=== PATIENT | male | born 1940 | race Caucasian/White ===

== ENCOUNTER 2017-10-19 07:45 | Inpatient (IN) | payer OTHER ==
[~2017-10-19] VITALS: Ht 182.9 cm; Wt 78.9 kg
[~2017-10-19 07:45] MED LIST: MOXIFLOXACIN H400 M2 PO
--- NOTE | 2017-10-19 08:18 | ED GENERAL ADULT ---
History of Present Illness General Chief Complaint: Dyspnea (COPD, CHF, Other) Stated Complaint: SENT BY DR TAZ RAYO OF SOB Source: patient, family Exam Limitations: no limitations Vital Signs & Intake/Output Vital Signs & Intake/Output Vital Signs Date Time Temp Pulse Resp B/P B/P Pulse O2 O2 Flow FiO2 Mean Ox Delivery Rate 10/19 1327 97.9 79 24 105/61 96 Room Air 10/19 1036 98.0 76 22 112/57 95 Room Air 10/19 0803 Room Air Room Air 10/19 0749 97.5 86 24 96/66 95 Room Air Room Air Allergies Coded Allergies: NO KNOWN ALLERGIES (09/24/13) Reconcile Medications Aspirin (Aspirin*) 81 MG TAB.CHEW 1 TAB PO DAILY HEART HEALTH (Reported) Calcium (Elemental-Fr Calcarb) (Calcium) 600 MG CALCIUM (1,500 MG) TABLET 1 TAB PO DAILY SUPPLEMENT (Reported) Lisinopril 10 MG TABLET 1 TAB PO DAILY HEART (Reported) Multivitamin (Daily Multiple Vitamin) 1 EACH TABLET 1 TAB PO DAILY VITAMIN SUPPORT (Reported) [place]-3 Fatty Acids/Fish Oil (Fish Oil 1,000 MG Capsule) 340 MG-1,000 MG CAPSULE 1 CAP PO DAILY SUPPLEMENT (Reported) Rosuvastatin Calcium (Crestor) 10 MG TABLET 1 TAB PO DAILY CHOLESTEROL ( Reported) Vit A/Vit C/Vit E/Zinc/Copper (Preservision Areds Softgel) 14,320-226 CAPSULE 1 CAP PO DAILY EYE (Reported) Triage Note: PT TO ED WITH C/O SOB, COUGH, CONGESTION X 5 WEEKS, WORSE LAST FEW DAYS. PT HAD XRAYS, CT, LUNG BIOPSY (BILAT). Triage Nurses Notes Reviewed? yes HPI: 77-year-old male comes in with continued shortness of breath. The patient was recently seen and admitted with pulmonary nodules which eventually were biopsied and grew out enterococci. The patient was discharged on moxifloxacin and has continued to take it without much improvement. The patient's chest x-ray was repeated and he has worsening nodules that he was advised to come in for IV antibiotics. The patient denies fever. Past History Travel History Traveled to [place] past 21 day No Medical History Any Pertinent Medical History? 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 No Review of Systems Review of Systems Constitutional: Denies: chills, diaphoresis, fever. EENTM: Denies: blurred vision, double vision, visual changes. Respiratory: Reports: cough, short of breath. Denies: hemoptysis, orthopnea. Cardiovascular: Denies: chest pain, edema, orthopena. GI: Denies: abdominal pain, bloating, constipation. Genitourinary: Denies: discharge, dysuria, frequency. Musculoskeletal: Denies: back pain, gout, joint pain. Skin: Denies: cysts, change in skin color, change in hair/nails. Neurological/Psychological: Denies: anxiety, ataxia, cognitive dysfunction. Hematologic/Endocrine: Denies: bruising. Physical Exam Physical Exam General Appearance: well developed/nourished, no apparent distress, alert, awake Head: atraumatic, normal appearance Eyes: Bilateral: PERRL, EOMI. Ears, Nose, Throat: normal pharynx, normal ENT inspection Neck: normal inspection, supple, full range of motion Respiratory: normal breath sounds, chest non-tender, no respiratory distress Cardiovascular: regular rate/rhythm Gastrointestinal: normal bowel sounds, soft, non-tender Back: normal inspection, normal range of motion Extremities: normal inspection, normal capillary refill, normal range of motion Neurologic/Psych: no motor/sensory deficits, awake, alert, oriented x 3 Skin: intact, normal color Core Measures ACS in differential dx? No CVA/TIA Diagnosis: No Sepsis Present: No Sepsis Focused Exam Completed? No Progress Differential Diagnoses . Plan of Care: Orders Procedure Date/time Status CBC WITHOUT DIFFERENTIAL 10/20 599 Active BASIC ELECTROLYTES PLUS BUN&CR 10/20 599 Active Heart Healthy Diet 10/19 D Active ED Holding Orders 10/19 1418 Active Admit to inpatient 10/19 1418 Active Vital Signs 10/19 1418 Active Code Status 10/19 1418 Active Lab Add-on Test 10/19 1347 Active LACTIC ACID 10/19 1116 Active Pathway - chart 10/19 09 Active House Staff 10/19 09 Active LOWER RESPIRATORY CULTURE 10/19 09 Active WESTERGREN SED RATE 10/19 0817 Complete BLOOD CULTURE 10/19 0816 Active LACTIC ACID 10/19 0816 Complete Saline Lock 10/19 0810 Active TROPONIN LEVEL 10/19 0810 Complete CBC WITHOUT DIFFERENTIAL 10/19 08 Complete BASIC METABOLIC PANEL 10/19 08 Complete ANGIOTENSIN-CONVERT.ENZYM Ref$ 10/19 08 Active NEUTRO CYTO ANTIBODY Ref$ 10/19 0810 Active EKG 10/19 0810 Active VTE Mechanical Prophylaxis 10/19 UNK Active Activity/Ambulation 10/19 UNK Active Current Medications Sig/Fernando Start time Last Medication Dose Stop Time Status Admin Aspirin 81 MG DAILY 10/20 0900 UNVr (Aspirin) Atorvastatin Calcium 40 MG 1700 10/19 1700 UNVr (Lipitor) Meropenem 1 GM IQ8 10/19 1345 UNVr (MEROPENEM) Enoxaparin Sodium 40 MG DAILY 10/19 09 UNVr (Lovenox) Sodium Chloride 1,000 ML ONCE ONE 10/19 0815 AC 10/19 (Normal Saline 0.9%) 10/19 1454 0847 Laboratory Tests 10/19/17 0836: ESR Westergren 105 H 10/19/17 0825: Lactic Acid 0.9 10/19/17 0825: Anion Gap 9, Estimated GFR > 60, BUN/Creatinine Ratio 18.8, Glucose 106 H, Calcium 9.0, Troponin I 0.02, CBC w Diff NO MAN DIFF REQ, RBC 4.14 L, MCV 84.9, MCH 28.2, MCHC 33.2, RDW 14.0, MPV 7.4, Gran % 80.7 H, Lymphocytes % 3.6 L, Monocytes % 13.6 H, Eosinophils % 1.1, Basophils % 1.0, Absolute Granulocytes 8.0 H, Absolute Lymphocytes 0.4 L, Absolute Monocytes 1.3 H, Absolute Eosinophils 0.1, Absolute Basophils 0.1 10/19/17 0810: Angiotensin Convert Enz Pending, ANCA Pending Microbiology 10/19 914 BLOOD: Blood Culture - RECD 10/19 901 LOWER RESP: Respiratory Culture - COLB 10/19 901 LOWER RESP: Gram Stain - COLB 10/19 0836 BLOOD: Blood Culture - RECD Initial ED EKG: see below Comments: EKG shows sinus, rate of 83, normal axis, normal intervals, no acute ST-T changes. Compared to the EKG from October 04, 2017: No significant change. I reviewed previous admission record and spoke with the patient's multimedia services coordinator, . The plan is for the patient to be admitted for failed outpatient antibiotic therapy. He wants ID consulted before starting antibiotic therapy. We will check the patient's lactate because of soft initial blood pressure though he does not appear septic he does not have tachycardia or fever. The patient also took antibiotic for the past few days including one last night. We will continue to watch him closely. I will give him some IV fluids. He would likely need admission. 142 after discussion with all consultants and the patient's multimedia services coordinator and infectious disease, the patient will be admitted for IV antibiotics. The inpatient service will start antibiotics. The patient is not septic. Departure Departure Time of Disposition: 1417 Disposition: STILL A PATIENT Condition: Stable Clinical Impression Primary Impression: Pulmonary nodule Secondary Impressions: Pneumonia Referrals: Cari Calderon MD (PCP/Family) Departure Forms: Customer Survey General Discharge Information Critical Care Note Critical Care Note Critical Care Time: non-applicable
[2017-10-19 08:36] LABS: ABSOLUTE BASOPHIL COUNT 0.1 /CUMM (0.0-0.2); ABSOLUTE EOSINOPHIL COUNT 0.1 /CUMM (0.0-0.7); ABSOLUTE LYMPH COUNT 0.4 /CUMM (1.2-3.4); ABSOLUTE MONOCYTE COUNT 1.3 /CUMM (0.10-0.60); EOSINOPHIL % 1.1 % (0-5); GRANULOCYTE % 80.7 % (42.2-75.2); HEMATOCRIT 35.1 % (42-52); MEAN CORPUSCULAR HGB 28.2 PG (27.0-31.0); MEAN CORPUSCULAR HGB CONC 33.2 G/DL (33.0-37.0); MEAN CORPUSCULAR VOLUME 84.9 FL (80.0-94.0); MEAN PLATELET VOLUME 7.4 FL (7.4-10.4); PLATELET COUNT 620 /CUMM (130-400); RED BLOOD CELL CT 4.14 /CUMM (4.70-6.10); WHITE BLOOD CELL COUNT 9.9 /CUMM (4.8-10.8)
--- NOTE | 2017-10-19 08:52 | History & Physical ---
Jake PRECIADO,[facility] 10/19/17 0852: General Information and HPI MD Statement: I have seen and personally examined JENNIFER AGRAWAL and documented this H&P. The patient is a 77 year old M who presented with a patient stated chief complaint of cough/dyspnea . Source of Information: patient Exam Limitations: no limitations History of Present Illness: 77 yo gentleman who is a former smoker with PMH of hypertension and hyperliipidemia, recently admitted to [facility] from 10/03-10/07 for Enterobacter Cloacae isolated Bilateral cavitary mulitlobar PNA with lung abscess lessions and sent hoime with Moxifloxacin to complete a 14 day ABX course, returns to the ED with peristent shortness of breath on exertion and cough. A repeat CXR done after completion of ABX showed interval increment of the pulmonary lesions. He does endorse peristent cough which is unchanged since last admission. His cough is non productive most of the time, denies hemoptysis. He denies any fever/ chills. Regarding his dyspnea, it is with minimal exertion and remains unchanged since last admission. During last admission extensive workup including HIV screen, AFB stain and fungus (included induced sputum and tissue biopsy), were all unremarkable. His Quinteferon result were indeterminate,culture pending. Workup for vasculitis, and echo to assess for IE were all unremarkable. His enterobactericae Cloacae was sensitive to floroquinolones. Allergies/Medications Allergies: Coded Allergies: NO KNOWN ALLERGIES (09/24/13) Home Med list Aspirin (Aspirin*) 81 MG TAB.CHEW 1 TAB PO DAILY HEART HEALTH (Reported) Calcium (Elemental-Fr Calcarb) (Calcium) 600 MG CALCIUM (1,500 MG) TABLET 1 TAB PO DAILY SUPPLEMENT (Reported) Lisinopril 10 MG TABLET 1 TAB PO DAILY HEART (Reported) Multivitamin (Daily Multiple Vitamin) 1 EACH TABLET 1 TAB PO DAILY VITAMIN SUPPORT (Reported) [place]-3 Fatty Acids/Fish Oil (Fish Oil 1,000 MG Capsule) 340 MG-1,000 MG CAPSULE 1 CAP PO DAILY SUPPLEMENT (Reported) Rosuvastatin Calcium (Crestor) 10 MG TABLET 1 TAB PO DAILY CHOLESTEROL ( Reported) Vit A/Vit C/Vit E/Zinc/Copper (Preservision Areds Softgel) 14,320-226 CAPSULE 1 CAP PO DAILY EYE (Reported) Past History Travel History Traveled to [place] past 21 day No Medical History Neurological: NONE EENT: cataracts Cardiovascular: hypertension, hyperlipidemia Respiratory: NONE Gastrointestinal: GERD Hepatic: NONE Renal: NONE Musculoskeletal: NONE Psychiatric: NONE Endocrine: NONE Blood Disorders: NONE 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 Exam & Diagnostic Data Last 24 Hrs of Vital Signs/I&O Vital Signs Date Time Temp Pulse Resp B/P B/P Pulse O2 O2 Flow FiO2 Mean Ox Delivery Rate 10/19 1036 98.0 76 22 112/57 95 Room Air 10/19 0803 Room Air Room Air 10/19 0749 97.5 86 24 96/66 95 Room Air Room Air Intake & Output 10/19 1600 10/19 0800 10/19 0000 Intake Total 0 Output Total Balance 0 Intake, Oral 0 Patient 86.183 kg Weight Weight Reported by Patient Measurement Method Physical Exam General Appearance Alert, Oriented X3, Cooperative Skin No Significant Lesion Skin Temp/Moisture Exam: Warm/Dry Sepsis Skin Exam (color): Normal for Ethnicity HEENT Atraumatic, Mucous Membr. moist/pink Neck Supple, No JVD Lymphatic Cervical nl Cardiovascular Regular Rate, Normal S1, Normal S2 Lungs Clear to Auscultation, Normal Air Movement Abdomen Normal Bowel Sounds, Soft, No Tenderness Neurological Normal Gait, Normal Speech, Strength at 5/5 X4 Ext, Normal Tone, Sensation Intact Extremities No Tenderness/Swelling Vascular Normal Pulses, Pulses Symmetrical Last 24 Hrs of Labs/Elder: Laboratory Tests 10/19/17 0836: ESR Westergren 105 H 10/19/17 0825: Lactic Acid 0.9 10/19/17 0825: Anion Gap 9, Estimated GFR > 60, BUN/Creatinine Ratio 18.8, Glucose 106 H, Calcium 9.0, Troponin I 0.02, CBC w Diff NO MAN DIFF REQ, RBC 4.14 L, MCV 84.9, MCH 28.2, MCHC 33.2, RDW 14.0, MPV 7.4, Gran % 80.7 H, Lymphocytes % 3.6 L, Monocytes % 13.6 H, Eosinophils % 1.1, Basophils % 1.0, Absolute Granulocytes 8.0 H, Absolute Lymphocytes 0.4 L, Absolute Monocytes 1.3 H, Absolute Eosinophils 0.1, Absolute Basophils 0.1 10/19/17 0810: Angiotensin Convert Enz Pending, ANCA Pending Microbiology 10/19 1446 LOWER RESP: Respiratory Culture - RECD 10/19 1446 LOWER RESP: Gram Stain - RECD 10/19 0915 BLOOD: Blood Culture - RECD 10/19 0836 BLOOD: Blood Culture - RECD Assessment/Plan Assessment: 77-year-old gentleman who is a former smoker (40yr hx), past medical history significant for hypertension and hyperlipidemia, with a recent diagnosis of enterobacter colacae isolated bilateral cavitary multilobar pneumonia with lung abscess treated aggresively with on a 14 day antibiotic course(moxifloxacin), presents to [facility] ED with persistent respiratory symptoms in the context of chest x-ray radiological findings showing interval increments when compared to previous study of 09/27/2017. On presentation, he is afebrile with no leukocytosis Impression * Dyspnea and cough. Secondary to multilobar pneumonia. * Bilateral cavitary multilobar pneumonia now radiologically worsened with failure of outpatient antibiotics. * History of chronic disease: Hypertension, hyperlipidemia. Plan Admit to general medicine floor O2 supplementation to keep sats above 92% Obtain blood cultures and sputum cultures, before starting antibiotics CT chest tomorrow am to assess interval changes Obtain ID consult for abx choice optimization repeat vasculitis workup oin the context of elevated ESR Continue with home hypertension medications CODE STATUS: Full DVT prophylaxis; enoxaparin As Ranked By This Provider Problem List: 1. Pneumonia 2. Pulmonary nodule 3. Cavitating mass of lung 4. SOB (shortness of breath) Core Measures/Misc (10/24) Acute Coronary Syndrome ACS Diagnosis: No Congestive Heart Failure Congestive Heart Failure Diagnosis No Cerebrovascular Accident CVA/TIA Diagnosis: No VTE (View Protocol) VTE Risk Factors Acute Medical Illness No Mechanical VTE Prophylaxis d/t N/A MechProphylax Ordered No VTE Pharm Prophylaxis d/t NA PharmProphylax ordered Sepsis (View protocol) Sepsis Present: No If YES complete Sepsis Event Note If YES complete Sepsis Event Note Halina PRECIADO,[facility] 10/19/17 1814: Core Measures/Misc (10/24) Sepsis (View protocol) If YES complete Sepsis Event Note If YES complete Sepsis Event Note Attending MD Review Statement Attending Statement Attending MD Statement: examined this patient, discuss w/resident/PA/SOCIAL HUMAN SERVICES ASSISTANTS, agreed w/resident/PA/SOCIAL HUMAN SERVICES ASSISTANTS, discussed with family, reviewed EMR data (avail), discussed with nursing, discussed with case mgmt, reviewed images, amended to note Attending Assessment/Plan: This is a gentleman with HTN and Hyperlipedemia with 40 pack yrs smoker quit many rs ago with recent travel to [facility] has one month history of cough and yellow sputum with poor dention, 30 pound wt loss now has * Worsening large 9 cm cavitary lung abscess despite being on aggressive antibiotic outpatient by mouth therapy with moxifloxacin. Now has ESR which is worsening, leukocytosis, low-grade temperature at home, worsening performance status. Requires inpatient admission for aggressive intravenous antibiotic therapy for anaerobic coverage. Other pathology like inflammatory diseases including polyangiitis versus sarcoidosis etc. is unlikely. Lung biopsy done showed significant inflammation but no evidence suggestive of vasculitis are any granuloma. Patient is HIV negative. Low risk for MTB. Has grown Enterobacter which needs to be treated again with anaerobic coverage. Infectious disease consultation reviewed and appreciated * Wt loss recently, prior smoking * HTN and HLD PLAN Admit Intravenous meropenem Repeat sputum culture and other cultures Postural drainage to right lower lobe Check blood work tomorrow and if creatinine is okay we will do a CT chest with IV contrast to evaluate the lung abscess etc. We will consider repeat biopsy if the nodules are getting worse. We will also consider bronchoscopy in the future. No clinical evidence suggestive of any endobronchial lesion and bronchoscopy will be a limited use. If the CT is worse we will have thoracic surgery evaluation. Repeat ESR in 2 days Discussed with the family Intravenous fluids
[2017-10-19] MEDS ORDERED: CRESTOR10 M1 PO (09:17)
[2017-10-19] MEDS ORDERED: LISINOPRIL10 M1 PO (09:17)
[2017-10-19] MEDS ORDERED: DAILY MULTIPLE1 EACH PO (09:18)
[2017-10-19] MEDS ORDERED: ASPIRIN81 M4 PO (09:18)
[2017-10-19] MEDS ORDERED: PRESERVISION A1 EAC2 PO (09:19)
[2017-10-19] MEDS ORDERED: FISH OIL 1,0001 EACH PO (09:19)
[2017-10-19] MEDS ORDERED: CALCIUM600 M3 PO (09:19)
--- NOTE | 2017-10-19 11:23 | Cons- Infect Disease ---
General Information and HPI Consulting Request Date of Consult: 10/19/17 Requested By: Piotr Meade M.D. Reason for Consult: Bilateral pulmonary nodules Source of Information: patient, old records History of Present Illness: This is a 77-year-old man, ex-smoker, with a history of hypertension, hospitalized 2 weeks prior to admission with a 4 week history of a productive cough, shortness of breath with exertion and anorexia with a 30 pound weight loss, with a CT of the chest revealing bilateral pulmonary masses, with cavitation in the largest one, found to be afebrile with a normal white blood cell count, with a sputum culture positive for Enterobacter cloacae and a CT guided lung biopsy revealing dense fibrosis with chronic inflammation, with all cultures and stains negative, DAX negative, ANCA negative and an indeterminate QuantiFERON, discharged on Moxifloxacin, presenting to the emergency room today after a follow-up chest x-ray 2 days ago revealed an increase in the multiple bilateral pulmonary nodules and masses, with a persistent productive cough and shortness of breath with exertion, not significantly improved over the past 2 weeks, with no associated fevers, chills or sweats. On arrival to the emergency room he was afebrile. Laboratory data reveals a white blood cell count of 10, 000, ESR 105 (up from 65 on his admission), BUN/creatinine 16 and 0.9, AST/ALT 65 and 84. He did travel to [place] approximately 2 months prior to the onset of his symptoms. He has had no other travel and has no pets. He reports no TB exposure. Allergies/Medications Allergies: Coded Allergies: NO KNOWN ALLERGIES (09/24/13) Home Med List: Aspirin (Aspirin*) 81 MG TAB.CHEW 1 TAB PO DAILY HEART HEALTH (Reported) Calcium (Elemental-Fr Calcarb) (Calcium) 600 MG CALCIUM (1,500 MG) TABLET 1 TAB PO DAILY SUPPLEMENT (Reported) Lisinopril 10 MG TABLET 1 TAB PO DAILY HEART (Reported) Multivitamin (Daily Multiple Vitamin) 1 EACH TABLET 1 TAB PO DAILY VITAMIN SUPPORT (Reported) [place]-3 Fatty Acids/Fish Oil (Fish Oil 1,000 MG Capsule) 340 MG-1,000 MG CAPSULE 1 CAP PO DAILY SUPPLEMENT (Reported) Rosuvastatin Calcium (Crestor) 10 MG TABLET 1 TAB PO DAILY CHOLESTEROL ( Reported) Vit A/Vit C/Vit E/Zinc/Copper (Preservision Areds Softgel) 14,423-732 CAPSULE 1 CAP PO DAILY EYE (Reported) Past History Travel History Traveled to [place] past 21 day No Medical History Neurological: NONE EENT: cataracts Cardiovascular: hypertension, hyperlipidemia Respiratory: NONE Gastrointestinal: GERD Hepatic: NONE Renal: NONE Musculoskeletal: NONE Psychiatric: NONE Endocrine: NONE Blood Disorders: NONE 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 History of MRSA: No History of VRE: No History of CDIFF: No Surgical History Surgical History: cholecystectomy, hemorrhoid surgery Psychosocial History Services at Home: None ETOH Use: denies use Illicit Drug Use: denies illicit drug use Review of Systems Review of Systems All Other Systems: Reviewed and Negative Exam & Diagnostic Data Last 24 Hrs of Vital Signs/I&O Vital Signs Date Time Temp Pulse Resp B/P B/P Pulse O2 O2 Flow FiO2 Mean Ox Delivery Rate 10/19 1036 98.0 76 22 112/57 95 Room Air 10/19 0803 Room Air Room Air 10/19 0749 97.5 86 24 96/66 95 Room Air Room Air Intake & Output 10/19 1600 10/19 0800 10/19 0000 Intake Total 0 Output Total Balance 0 Intake, Oral 0 Patient 190 lb Weight Weight Reported by Patient Measurement Method Physical Exam Other Physical Findings: He is awake and alert in no acute distress. He is afebrile. Skin reveals no rash. HEENT exam is negative. Neck is supple with no adenopathy. Lungs are clear. Heart regular rhythm with a 1/6 systolic ejection murmur. Abdomen is soft, nontender with positive bowel sounds. Back no CVA tenderness. Extremities no cyanosis, clubbing or edema. Neuro is without focality. Last 24 Hours of Lab Results: Laboratory Tests 10/19 10/19 10/19 0836 0825 0825 Chemistry Sodium (137 - 145 mmol/L) 136 L Potassium (3.5 - 5.1 mmol/L) 4.6 Chloride (98 - 107 mmol/L) 101 Carbon Dioxide (22 - 30 mmol/L) 26 Anion Gap (5 - 16) 9 BUN (9 - 20 mg/dL) 15 Creatinine (0.7 - 1.2 mg/dL) 0.8 Estimated GFR (>60 ml/min) > 60 BUN/Creatinine Ratio (7 - 25 %) 18.8 Glucose (65 - 99 mg/dL) 106 H Lactic Acid (0.7 - 2.1 mmol/L) 0.9 Calcium (8.4 - 10.2 mg/dL) 9.0 Troponin I (<0.11 ng/ml) 0.02 Hematology CBC w Diff NO MAN DIFF REQ WBC (4.8 - 10.8 /CUMM) 9.9 RBC (4.70 - 6.10 /CUMM) 4.14 L Hgb (14.0 - 18.0 G/DL) 11.7 L Hct (42 - 52 %) 35.1 L MCV (80.0 - 94.0 FL) 84.9 MCH (27.0 - 31.0 PG) 28.2 MCHC (33.0 - 37.0 G/DL) 33.2 RDW (11.5 - 14.5 %) 14.0 Plt Count (130 - 400 /CUMM) 620 H MPV (7.4 - 10.4 FL) 7.4 Gran % (42.2 - 75.2 %) 80.7 H Lymphocytes % (20.5 - 51.1 %) 3.6 L Monocytes % (1.7 - 9.3 %) 13.6 H Eosinophils % (0 - 5 %) 1.1 Basophils % (0.0 - 2.0 %) 1.0 Absolute Granulocytes (1.4 - 6.5 /CUMM) 8.0 H Absolute Lymphocytes (1.2 - 3.4 /CUMM) 0.4 L Absolute Monocytes (0.10 - 0.60 /CUMM) 1.3 H Absolute Eosinophils (0.0 - 0.7 /CUMM) 0.1 Absolute Basophils (0.0 - 0.2 /CUMM) 0.1 ESR Westergren (0 - 10 MM) 105 H Last 24 Hours of Elder Results: Blood cultures x 2 October 19 pending Diagnostic Data Recent Imaging Findings: Chest x-ray October 17 reveals multiple ill-defined pulmonary masses, several of which appear larger when compared to the previous study, with the largest in the right lower lobe, cavitated with air-fluid levels, now measuring 9 x 8 cm, with no significant pleural effusion. Assessment/Plan Assessment/Plan Impression: This is a 77-year-old man with a history of hypertension hospitalized 2 weeks prior to admission with bilateral pulmonary masses felt to be infectious in etiology, with a sputum culture positive for Enterobacter and a CT-guided biopsy revealing dense fibrosis with chronic inflammation, treated over the past 2 weeks with antibiotics with no significant improvement clinically and with progression of his pulmonary masses radiographically, now found to be afebrile with a normal white blood cell count and with excellent oxygenation on room air. The etiology of his bilateral pulmonary nodules is unclear. An infectious process remains a concern, particularly with evidence of cavitation and an air- fluid level in the right lower lobe, suggestive of a lung abscess, and with the isolation of Enterobacter from his initial sputum culture. He does not appear to have responded, however, to the Moxifloxacin. This could suggest the involvement of other pathogens, particularly anaerobes, or perhaps more unusual organisms, including mycobacteria or fungi, that are not easily isolated. A noninfectious process, however, must also be considered, including polyangiitis with granulomatosis (though his ANCA was negative) or other autoimmune diseases (though his DAX was also negative) or sarcoidosis. Malignancy is also possible, though the biopsy was negative. Of note his ESR has increased, suggesting progression of this process, though this is nonspecific. Options at this point include repeat aspiration/biopsy under CT guidance, particularly of the right lower lobe abscess, bronchoscopy or empiric antibiotics that would include anaerobic coverage. Have discussed with Pulmonary who prefers the latter option as an initial approach. Suggestion: 1. Would consider repeat CT-guided aspiration/biopsy of the right lower lobe abscess/nodule 2. Would check an ALONDRA level and consider further/repeat serologies to rule out noninfectious etiologies 3. Attempt to obtain a sputum culture 4. Begin Meropenem 1 g IV every 8 hours pending above Consult Acknowledgment - Thank you for your consult request.
[2017-10-19 17:18] VITALS: BP 132/70
[2017-10-19 21:03] VITALS: BP 130/70
[2017-10-20 06:23] VITALS: BP 122/64
--- NOTE | 2017-10-20 07:52 | PN- Housestaff ---
See Addendum Subjective Follow-up For: Cavitatory lesions ?Pneumonia Subjective: Patient seen and examined at bedside. He states he is doing well apart from his productive cough. He says he produces "enough sputum to choke a horse". He also endorses mild shortness of breath. He denies fever, chills, nausea, vomiting, chest pain. Review of Systems Constitutional: Reports: see HPI. Objective Last 24 Hrs of Vital Signs/I&O Vital Signs Date Time Temp Pulse Resp B/P B/P Pulse O2 O2 Flow FiO2 Mean Ox Delivery Rate 10/20 1406 98.0 79 20 110/66 96 Room Air 10/20 0815 77 122/64 10/20 0623 99.5 77 16 122/64 94 10/20 0000 Room Air 10/19 2103 98.6 75 16 130/70 96 Room Air 10/19 1718 98.3 78 18 132/70 96 Room Air Intake & Output 10/20 1600 10/20 0800 10/20 0000 Intake Total 1090 600 427.5 Output Total 160 Balance 930 600 427.5 Intake, IV 610 600 187.5 Intake, Oral 480 240 Output, Urine 160 Patient 188 lb 190 lb Weight Weight Reported by Patient Measurement Method Physical Exam General Appearance: Alert, Oriented X3, Cooperative, No Acute Distress Skin: No Rashes, No Breakdown Neck: Supple Cardiovascular: Regular Rate, Normal S1, Normal S2 Lungs: Clear to Auscultation, mild diffuse wheezing on the right side Abdomen: Normal Bowel Sounds, Soft, No Tenderness, No Hepatospenomegaly Extremities: No Edema, Normal Pulses Assessment/Plan Assessment: 77-year-old gentleman who is a former smoker (40yr hx), past medical history significant for hypertension and hyperlipidemia, with a recent diagnosis of enterobacter colacae isolated bilateral cavitary multilobar pneumonia with lung abscess treated aggresively with on a 14 day antibiotic course(moxifloxacin), is admitted to the Gen Med service with persistent respiratory symptoms in the context of chest x-ray radiological findings showing interval increments when compared to previous study of 09/27/2017. CT Chest IMPRESSION: - Redemonstration of numerous masses and nodules throughout both lungs many of which demonstrate central cavitation. The largest of these lesions is seen in the right lower lobe and measures up to 9.3 cm and has not significantly changed compared with 10/03/2017. Many of the lesions have increased in size and at least one lesion is new (right upper lobe series 2 image 23). - Mild increase in size of small right pleural effusion. 1. Bilateral cavitary multilobar pneumonia - ID recommendation appreciated. The patient is on Meropenem 1g q8 h -Blood cultures and sputum cultures sent. Will follow -CT chest with contrast done. Demonstrates interval increase in the number and size of the lesions -Would follow Pulmonary recommendations regarding further decision regarding Lung biosy or Bronchoscopy -ESR: 106, WBC: 9.0 at this time. There has been an interval increase in the ESR. This could demonstrate an underlying autoimmune process 2. History of Hypertension and Hyperlipidemia Continue home medications DVT prophylaxis Code status: Full code Problem List: 1. Pneumonia 2. Hypertension 3. Cavitating mass of lung 4. SOB (shortness of breath) 5. Cough Pain Ratin Pain Location: none Pain Goal: Remain pain free Pain Plan: none Tomorrow's Labs & Rationales: cbc and bep
[2017-10-20 08:28] LABS: ABSOLUTE BASOPHIL COUNT 0 /CUMM (0.0-0.2); ABSOLUTE EOSINOPHIL COUNT 0.2 /CUMM (0.0-0.7); ABSOLUTE GRANULOCYTE CT 7.2 /CUMM (1.4-6.5); ABSOLUTE LYMPH COUNT 0.4 /CUMM (1.2-3.4); ABSOLUTE MONOCYTE COUNT 1.1 /CUMM (0.10-0.60); BASOPHIL % 0.2 % (0.0-2.0); EOSINOPHIL % 1.8 % (0-5); GRANULOCYTE % 80.3 % (42.2-75.2); HEMATOCRIT 30.8 % (42-52); MEAN CORPUSCULAR HGB 28.1 PG (27.0-31.0); MEAN CORPUSCULAR HGB CONC 33.1 G/DL (33.0-37.0); MEAN CORPUSCULAR VOLUME 84.9 FL (80.0-94.0); MEAN PLATELET VOLUME 8.2 FL (7.4-10.4); PLATELET COUNT 535 /CUMM (130-400); RBC DISTRIBUTION WIDTH 14.2 % (11.5-14.5); RED BLOOD CELL CT 3.63 /CUMM (4.70-6.10)
--- NOTE | 2017-10-20 11:14 | PN- Infect Dx ---
Subjective Subjective: Afebrile. He reports a continued productive cough, of green sputum. He does not report any shortness of breath or chest pain. Objective Last 24 Hrs of Vital Signs/I&O Vital Signs Date Time Temp Pulse Resp B/P B/P Pulse O2 O2 Flow FiO2 Mean Ox Delivery Rate 10/20 0815 77 122/64 10/20 0623 99.5 77 16 122/64 94 09/ 0000 Room Air 10/19 2103 98.6 75 16 130/70 96 Room Air 10/19 1718 98.3 78 18 132/70 96 Room Air 10/19 1549 98.6 75 18 112/61 96 Room Air 10/19 1327 97.9 79 24 105/61 96 Room Air Intake & Output 10/20 1600 10/20 0800 10/20 0000 Intake Total 600 427.5 Output Total Balance 600 427.5 Intake, IV 600 187.5 Intake, Oral 240 Patient 188 lb 190 lb Weight Weight Reported by Patient Measurement Method Physical Exam Other Physical Findings: He appears comfortable in no acute distress Lungs are clear Heart regular rhythm with no murmur Extremities no cyanosis, clubbing or edema Results Last 24 Hours of Lab Results: Laboratory Tests 10/20 10/19 0610 1116 Chemistry Sodium (137 - 145 mmol/L) 135 L Potassium (3.5 - 5.1 mmol/L) 4.7 Chloride (98 - 107 mmol/L) 104 Carbon Dioxide (22 - 30 mmol/L) 23 Anion Gap (5 - 16) 8 BUN (9 - 20 mg/dL) 14 Creatinine (0.7 - 1.2 mg/dL) 0.7 Estimated GFR (>60 ml/min) > 60 BUN/Creatinine Ratio (7 - 25 %) 20.0 Lactic Acid Cancelled Hematology CBC w Diff NO MAN DIFF REQ WBC (4.8 - 10.8 /CUMM) 9.0 RBC (4.70 - 6.10 /CUMM) 3.63 L Hgb (14.0 - 18.0 G/DL) 10.2 L Hct (42 - 52 %) 30.8 L MCV (80.0 - 94.0 FL) 84.9 MCH (27.0 - 31.0 PG) 28.1 MCHC (33.0 - 37.0 G/DL) 33.1 RDW (11.5 - 14.5 %) 14.2 Plt Count (130 - 400 /CUMM) 535 H MPV (7.4 - 10.4 FL) 8.2 Gran % (42.2 - 75.2 %) 80.3 H Lymphocytes % (20.5 - 51.1 %) 5.0 L Monocytes % (1.7 - 9.3 %) 12.7 H Eosinophils % (0 - 5 %) 1.8 Basophils % (0.0 - 2.0 %) 0.2 Absolute Granulocytes (1.4 - 6.5 /CUMM) 7.2 H Absolute Lymphocytes (1.2 - 3.4 /CUMM) 0.4 L Absolute Monocytes (0.10 - 0.60 /CUMM) 1.1 H Absolute Eosinophils (0.0 - 0.7 /CUMM) 0.2 Absolute Basophils (0.0 - 0.2 /CUMM) 0 Last 24 Hours of Elder Results: Sputum culture October 19 mixed kade Blood cultures x 2 October 19 negative Assessment/Plan ID Impression: Stable, with his temperatures and white blood cell count remaining normal, now on Meropenem, begun yesterday for bilateral pulmonary nodules, which may represent lung abscesses, not responsive to nearly 2 weeks of Moxifloxacin, with Enterobacter isolated from his initial sputum culture. The possibility of a noninfectious process must be considered as noted and discussed, though the lung biopsy on his recent admission was negative for malignancy and his ANCA and DAX were negative. His QuantiFERON was indeterminate, but his AFB smears were negative. Suggestion: 1. Consider repeat CT-guided aspiration/biopsy of the right lower lobe abscess/ nodule if he does not improve 2. Further evaluation for noninfectious etiologies per Pulmonary 3. Follow-up recent sputum culture 4. Continue Meropenem
[2017-10-20 14:06] VITALS: BP 110/66
--- NOTE | 2017-10-20 15:47 | CT SCAN REPORT ---
EXAMINATION: CT CHEST WITH CONTRAST CLINICAL INFORMATION: Lung abscess. COMPARISON: Chest CT 10/03/2017. TECHNIQUE: Multidetector volumetric CT imaging of the chest was obtained after the administration of 79 mL of Optiray 320 intravenous contrast without immediate adverse reactions. Axial MIP volume rendering provided. Sagittal and coronal reformatted images were obtained. DLP: 286 mGy-cm FINDINGS: LUNGS: There is redemonstration of numerous masses and nodules throughout both lungs many of which demonstrate central cavitation. The largest of these lesions is seen in the right lower lobe and measures up to 9.3 cm in maximal oblique dimension which is similar to the prior study although the central area of cavitation has mildly increased in size. Most of the lesions have increased in size compared with 10/03/2017. For example in the right lower lobe lesion now measures 3.4 cm, previously 2.0 cm (series 2 image 42 compared with series 2 image 47). A lesion in the medial aspect of the left lower lobe now measures 2.8 cm, previously 2.3 cm (series 2 image 51 compared with series 2 image 51). A lesion in the right upper lobe is new from prior (series 2 image 23). Otherwise, no definite additional new lesions are seen. MEDIASTINUM: A subcarinal lymph node measures 1.4 cm, slightly increased from prior. Additional nonenlarged mediastinal lymph nodes are noted. PLEURA: Increased size of small right pleural effusion. No pneumothorax. AXILLA: No lymphadenopathy. UPPER ABDOMEN: The visualized portions of the upper abdominal viscera are within normal limits. OSSEOUS STRUCTURES: Advanced spondylotic changes throughout the thoracic spine. No acute fracture. No destructive osseous lesion. Old healed right-sided rib fractures are noted. IMPRESSION: - Redemonstration of numerous masses and nodules throughout both lungs many of which demonstrate central cavitation. The largest of these lesions is seen in the right lower lobe and measures up to 9.3 cm and has not significantly changed compared with 10/03/2017. Many of the lesions have increased in size and at least one lesion is new (right upper lobe series 2 image 23). - Mild increase in size of small right pleural effusion.
[2017-10-20 22:17] VITALS: BP 118/72
[2017-10-21 06:45] VITALS: BP 121/62
--- NOTE | 2017-10-21 07:22 | PN- Housestaff ---
Vega Talboti 10/21/17 0722: Subjective Follow-up For: Multilobar pneumonia Subjective: Patient was seen and examined at bedside. He reports no improvement in cough or sputum production. Denies fever, chills, nausea, voimiting, chest pain at this time. The patient is NPO for a posssible repeat IR guided biopsy later today. Review of Systems Constitutional: Reports: see HPI. Objective Last 24 Hrs of Vital Signs/I&O Vital Signs Date Time Temp Pulse Resp B/P B/P Pulse O2 O2 Flow FiO2 Mean Ox Delivery Rate 10/21 0645 98.7 75 20 121/62 96 Room Air 10/21 0000 Room Air 10/20 2217 98.6 72 20 118/72 96 Room Air 10/20 1406 98.0 79 20 110/66 96 Room Air Intake & Output 10/21 1600 10/21 0800 10/21 0000 Intake Total 465 Output Total 400 750 Balance -400 -285 Intake, IV 225 Intake, Oral 240 Output, Urine 400 750 Patient 184 lb Weight Physical Exam General Appearance: Alert, Oriented X3, Cooperative, No Acute Distress Neck: Supple Cardiovascular: Regular Rate, Normal S1, Normal S2 Lungs: Clear to Auscultation, mild wheeze on the right Abdomen: Normal Bowel Sounds, Soft, No Tenderness Assessment/Plan Assessment: 77-year-old gentleman who is a former smoker (40yr hx), past medical history significant for hypertension and hyperlipidemia, with a recent diagnosis of enterobacter colacae isolated bilateral cavitary multilobar pneumonia with lung abscess treated aggresively with on a 14 day antibiotic course(moxifloxacin), is admitted to the [facility] service with persistent respiratory symptoms in the context of chest x-ray radiological findings showing interval increments when compared to previous study of 09/27/2017. CT Chest IMPRESSION: - Redemonstration of numerous masses and nodules throughout both lungs many of which demonstrate central cavitation. The largest of these lesions is seen in the right lower lobe and measures up to 9.3 cm and has not significantly changed compared with 10/03/2017. Many of the lesions have increased in size and at least one lesion is new (right upper lobe series 2 image 23). - Mild increase in size of small right pleural effusion. 1. Bilateral cavitary multilobar pneumonia - ID recommendation appreciated. The patient is on Meropenem 1g q8 h -Sputum culture gram stain positive for Gram positive cocci and Gram negative rods. Will follow up final report -Blood cultures are sterile -CT chest with contrast done. Demonstrates interval increase in the number and size of the lesions -Would follow Pulmonary recommendations regarding further decision regarding Lung biosy or Bronchoscopy -ESR: 106, WBC: 9.0 at this time. There has been an interval increase in the ESR. This could demonstrate worsening infection or vasculitis like process -ANCA /ALONDRA levels pending. Would follow 2. History of Hypertension and Hyperlipidemia Continue home medications DVT prophylaxis Code status: Full code Problem List: 1. Pneumonia 2. Hypertension 3. Cavitating mass of lung 4. SOB (shortness of breath) 5. Cough Pain Ratin Pain Location: none Pain Goal: Remain pain free Pain Plan: none Tomorrow's Labs & Rationales: cbc Halina PRECIADO,[facility] 10/21/17 1023: Attending MD Review Statement Attending Statement Attending MD Statement: examined this patient, discuss w/resident/PA/ACETYLENE OPERATOR, agreed w/resident/PA/ACETYLENE OPERATOR, discussed with family, reviewed EMR data (avail), discussed with nursing, discussed with case mgmt, reviewed images, amended to note Attending Assessment/Plan: Says he is better Still has sig sputum pre patient Vitals as noted He appears comfortable in no acute distress Lungs are clear Heart regular rhythm with no murmur Extremities no cyanosis, clubbing or edema This is a gentleman with HTN and Hyperlipedemia with 40 pack yrs smoker quit many rs ago with recent travel to [facility] has one month history of cough and yellow sputum with poor dention, 30 pound wt loss now has * Worsening large 9 cm cavitary lung abscess with multiple lung massess (prior bx nil sig), despite being on aggressive antibiotic outpatient by mouth therapy with moxifloxacin. Now has ESR which is worsening, leukocytosis, low-grade temperature at home, worsening performance status. Now on IV meropenam (had enterobacter before). Other pathology like inflammatory diseases including polyangiitis versus sarcoidosis etc. is unlikely. Lung biopsy done showed significant inflammation but no evidence suggestive of vasculitis are any granuloma. Patient is HIV negative. Low risk for MTB. Has grown Enterobacter which needs to be treated again with anaerobic coverage. Infectious disease consultation reviewed and appreciated * Wt loss recently, prior smoking * HTN and HLD PLAN Intravenous meropenem Repeat sputum culture for bact/afb/fungus Postural drainage to right lower lobe Rpt biopsy to see if he has OFFICIAL GREETER or vasculitis physiology/ Please ask IR to send tissue for bacterial/fungal/afb culture Check leignella antigen again Ct guided drainage of the abscess or bronch is not recommended (BP fistula as a complication etc). No evidence of lung cancer and unlikely he has other rare infections as the culure from the tissues was unremarkable Repeat ESR in 2 days Discussed with the family Cont abx over the weekend Dr Turner to cover over the weekend
[2017-10-21 07:44] LABS: ABSOLUTE BASOPHIL COUNT 0 /CUMM (0.0-0.2); ABSOLUTE EOSINOPHIL COUNT 0.2 /CUMM (0.0-0.7); ABSOLUTE GRANULOCYTE CT 7.3 /CUMM (1.4-6.5); ABSOLUTE LYMPH COUNT 0.4 /CUMM (1.2-3.4); ABSOLUTE MONOCYTE COUNT 1.2 /CUMM (0.10-0.60); BASOPHIL % 0.1 % (0.0-2.0); EOSINOPHIL % 1.7 % (0-5); GRANULOCYTE % 80.7 % (42.2-75.2); HEMATOCRIT 31.9 % (42-52); MEAN CORPUSCULAR HGB CONC 33.3 G/DL (33.0-37.0); MEAN CORPUSCULAR VOLUME 84.3 FL (80.0-94.0); MEAN PLATELET VOLUME 8.1 FL (7.4-10.4); PLATELET COUNT 521 /CUMM (130-400); RBC DISTRIBUTION WIDTH 14.5 % (11.5-14.5); RED BLOOD CELL CT 3.78 /CUMM (4.70-6.10)
--- NOTE | 2017-10-21 09:14 | Discharge Summary ---
Visit Information Visit Dates Admission Date: 10/19/17 Discharge Date: 11/02/2017 Hospital Course Course Attending Physician: Halina PRECIADO,Piotr Riggs Primary Care Physician: Kvng PRECIADO,[facility] Course: This is a gentleman with HTN and Hyperlipedemia with 40 pack yrs smoker quit many rs ago with recent travel to [facility] has one month history of cough and yellow sputum with poor dention, 30 pound wt loss now was admitted with * Multiple lung masses some cavitary now bx c/w Lymphoma, may have had infection in the rt lower lobe cavitary lesion with enterobacter and pt is s/p 2 weeks of iv abx now will be dcd on po abx for a total abx duration of 6 weeks * Wt loss recently, prior smoking * HTN and HLD OUT PT plan Lymphoma - to see onc (bone marrow bx done and all work up done Rx with po abx for 6 weeks for lung abscess Hold bp meds as his bp is stable out pt eval with PCP, myself and Onc Allergies: Coded Allergies: NO KNOWN ALLERGIES (09/24/13) Disposition Summary Disposition Principal Diagnosis: Lung abscess Additional Diagnosis: Non hodgkins lymphoma\ HLD HTN Discharge Disposition: home or self care Discharge Instructions General Discharge Information Code Status: Full Code Patient's Diet: as jerson Patient's Activity: as jerson Follow-Up Instructions/Appts: Dr. Calderon, myself and Dr. Kolb Medications at Discharge Discharge Medications: Stop taking the following medications: Lisinopril (Lisinopril) 10 MG TABLET ORAL DAILY Aspirin (Aspirin*) 81 MG TAB.CHEW ORAL DAILY Vit A/Vit C/Vit E/Zinc/Copper (Preservision Areds Softgel) [phone] CAPSULE ORAL DAILY Calcium (Elemental-Fr Calcarb) (Calcium) 600 MG CALCIUM (1,500 MG) TABLET ORAL DAILY Continue taking these medications: Rosuvastatin Calcium (Crestor) 10 MG TABLET 1 Tablet ORAL DAILY Comments: Last Taken: 11/02/17 Time: 0830 AM LIPITOR 40 MG GIVEN IN HOSPITAL [place]-3 Fatty Acids/Fish Oil (Fish Oil 1,000 MG Capsule) 340 MG-1,000 MG CAPSULE 1 Capsule ORAL DAILY Comments: NOT GIVEN Start taking the following new medications: Ciprofloxacin HCl (Cipro) 500 MG TABLET 1 Tablet ORAL TWICE DAILY Qty = 60 No Refills Instructions: . Comments: NOT GIVEN IN HOSPITAL Amoxicillin/Potassium Clav (Augmentin 875-125 Tablet) 875 MG-125 MG TABLET 1 Tablet ORAL TWICE DAILY Qty = 60 No Refills Instructions: . Comments: NOT GIVEN IN HOSPITAL The following medications have been changed: Old: Multivitamin (Daily Multiple Vitamin) 1 EACH TABLET 1 Tablet ORAL DAILY New: Multivitamin (Daily Multiple Vitamin) 1 EACH TABLET 1 Tablet ORAL SEE INSTRUCTIONS Qty = 30 Instructions: PLEASE TAKE ONE TABLET TWICE A WEEK Comments: Last Taken:11/02/17 Time:0830 AM Copies To: Kvng PRECIADO,Cari; Kennedi PRECIADO,Adrien Attending MD Review Statement Documenting Attending: Halina PRECIADO,Piotr Riggs
[2017-10-21 10:15] VITALS: BP 114/68
--- NOTE | 2017-10-21 11:04 | PN- Infect Dx ---
Subjective Subjective: Afebrile without new complaints. He continues to report a productive cough, with no chest pain or shortness of breath at rest Objective Last 24 Hrs of Vital Signs/I&O Vital Signs Date Time Temp Pulse Resp B/P B/P Pulse O2 O2 Flow FiO2 Mean Ox Delivery Rate 10/21 1015 98.4 74 18 114/68 94 Room Air 10/21 0645 98.7 75 20 121/62 96 Room Air 10/21 0000 Room Air 10/20 2217 98.6 72 20 118/72 96 Room Air 10/20 1406 98.0 79 20 110/66 96 Room Air Intake & Output 10/21 1600 10/21 0800 10/21 0000 Intake Total 465 Output Total 400 750 Balance -400 -285 Intake, IV 225 Intake, Oral 240 Output, Urine 400 750 Patient 184 lb Weight Physical Exam Other Physical Findings: He appears comfortable in no acute distress Lungs crackles at the right base Heart regular rhythm with no murmur Extremities no cyanosis, clubbing or edema Results Last 24 Hours of Lab Results: Laboratory Tests 10/21 10/21 0658 0604 Chemistry Sodium (137 - 145 mmol/L) 137 Potassium (3.5 - 5.1 mmol/L) 4.8 Chloride (98 - 107 mmol/L) 102 Carbon Dioxide (22 - 30 mmol/L) 26 Anion Gap (5 - 16) 9 BUN (9 - 20 mg/dL) 12 Creatinine (0.7 - 1.2 mg/dL) 0.7 Estimated GFR (>60 ml/min) > 60 BUN/Creatinine Ratio (7 - 25 %) 17.1 Hematology CBC w Diff NO MAN DIFF REQ WBC (4.8 - 10.8 /CUMM) 9.0 RBC (4.70 - 6.10 /CUMM) 3.78 L Hgb (14.0 - 18.0 G/DL) 10.6 L Hct (42 - 52 %) 31.9 L MCV (80.0 - 94.0 FL) 84.3 MCH (27.0 - 31.0 PG) 28.0 MCHC (33.0 - 37.0 G/DL) 33.3 RDW (11.5 - 14.5 %) 14.5 Plt Count (130 - 400 /CUMM) 521 H MPV (7.4 - 10.4 FL) 8.1 Gran % (42.2 - 75.2 %) 80.7 H Lymphocytes % (20.5 - 51.1 %) 4.4 L Monocytes % (1.7 - 9.3 %) 13.1 H Eosinophils % (0 - 5 %) 1.7 Basophils % (0.0 - 2.0 %) 0.1 Absolute Granulocytes (1.4 - 6.5 /CUMM) 7.3 H Absolute Lymphocytes (1.2 - 3.4 /CUMM) 0.4 L Absolute Monocytes (0.10 - 0.60 /CUMM) 1.2 H Absolute Eosinophils (0.0 - 0.7 /CUMM) 0.2 Absolute Basophils (0.0 - 0.2 /CUMM) 0 ESR Westergren (0 - 10 MM) 92 H Last 24 Hours of Elder Results: Sputum culture October 19 mixed kade Blood cultures x 2 October 19 negative Recent Imaging Studies: CT of the chest October 20 reveals numerous masses and nodules throughout both lungs, many of which demonstrate central cavitation, with an increase in size of many of the lesions and with a new right upper lobe lesion; mild increase in the small right pleural effusion Assessment/Plan ID Impression: Stable, with his temperatures and white blood cell count remaining normal, on Meropenem, Day 2 of treatment for bilateral lung lesions/possible abscesses, with his sputum culture from his previous admission positive for Enterobacter and with his recent sputum culture, obtained after 2 weeks of Moxifloxacin, only positive for mixed kade. The possibility of a noninfectious process, including autoimmune disorders and malignancy, must be considered as noted and discussed, though the lung biopsy on his recent admission was negative for malignancy and his ANCA and DAX were negative. His QuantiFERON was indeterminate, but his AFB smears were negative. He is scheduled for a repeat CT-guided aspiration/biopsy today and will await these results. Suggestion: 1. Await repeat CT-guided aspiration/biopsy, scheduled for later today 2. Follow-up repeat ANCA and ALONDRA 3. Continue Meropenem
[2017-10-21 14:04] VITALS: BP 114/70
--- NOTE | 2017-10-21 15:55 | CT SCAN REPORT ---
PROCEDURE: CORE BIOPSY LEFT LUNG LESION CLINICAL INFORMATION: Multiple lung masses with one cavitary mass right lower lobe COMPARISON: CT scan yesterday. CONSENT: Informed consent was obtained from the patient prior to the procedure. During this process, the procedure and potential alternatives were explained, along with the intended outcome and benefits. The risks of the procedure including the possibility of an unsuccessful procedure, as well as the risk of not doing the procedure were discussed. The patient was given the opportunity to ask questions regarding the procedure and appeared competent to make decisions. A signed consent form documenting this discussion was placed in the medical record. A time out procedure was performed. ACCESS: Left anterior chest. CONTRAST: None SEDATION: None MEDICATIONS: 1% lidocaine for local anesthesia, 5 mL GUIDANCE: CT COMPLICATIONS: None DLP: 293 TECHNIQUE/FINDINGS: Patient was placed on the procedure table in the supine position and a lung mass abutting the left anterior chest was chosen for biopsy. This was not the mass that was previously biopsied. A 20-gauge core needle was utilized and 3 cores of tissue were obtained. One was placed in a sterile cup for Gram stain culture and sensitivity including fungus and TB. The 2 other cores were placed in formalin for pathologic analysis. A repeat CT scan after the biopsy showed no evidence of pneumothorax. IMPRESSION: Successful left lung biopsy.
[2017-10-21 22:09] VITALS: BP 129/63
[2017-10-22 07:10] VITALS: BP 113/61
--- NOTE | 2017-10-22 13:27 | PN- Att Addend ---
Attending Addendum Attending Brief Note Mr. Elias was interviewed and examined with Dr. Turner. His EMR was reviewed. He still notes productive cough with white/yellow sputum but he denies hemoptysis, pleuritic pain, and resting shortness of breath. He has noted some exertional dyspnea. He denies fever and chills. He notes anorexia and has had a significant weight loss. He is states he tolerated his lung biopsy well. T-max 99.2. Heart rate, respiratory rate, and blood pressure are stable and acceptable. Oxygen saturation is in the mid 90s on room air. Weight today is 175 pounds. He is in no acute distress but is somewhat ill-appearing. He is noted to be mildly dyspneic which resolved over the course of his visit. Lung exam is clear Blood cultures have remained negative. Repeat sputum culture has grown mixed kade with a second culture showing no growth at 1 day. Review of his biopsy CT reveals no pneumothorax. We are continuing to treat his pulmonary illness with meropenem. We are awaiting the results of his recent biopsy. We are continuing his maintenance medications.
--- NOTE | 2017-10-22 13:29 | PN- Pulmonary ---
Subjective HPI/Critical Care Issues: pt seen and examined afebrile hemodynamically stable 94% on room air no n/v/d/c, no cp, no coello +exertional dyspnea, +productive cough that is no longer green - whitish/ yellowish s/p IR guided left sided lung biopsy Objective Current Medications: Current Medications Sig/Fernando Start time Last Medication Dose Route Stop Time Status Admin Atorvastatin Calcium 40 MG DAILY 10/20 899 AC 10/21 PO 1310 Enoxaparin Sodium 40 MG DAILY 10/19 09 AC 10/21 SC 1309 Lisinopril 10 MG DAILY 10/19 1850 AC 10/21 PO 1313 Meropenem 1 GM Q8H 10/21 2100 AC 10/22 IV 0530 Meropenem 1 GM Q8H 10/20 0330 DC 10/21 IV 1309 Multivitamins 1 TAB DAILY 10/20 899 AC 10/21 Therapeutic PO 1309 Patient Medication 1 ED ONE ONE 10/21 2014 DC Teaching ED 10/22 2015 Vital Signs & I&O Last 24 Hrs of Vitals and I&O: Vital Signs Date Time Temp Pulse Resp B/P B/P Pulse O2 O2 Flow FiO2 Mean Ox Delivery Rate 10/22 0710 98.0 81 18 113/61 94 10/22 0000 96 Room Air Room Air 10/21 2209 99.2 76 18 129/63 96 Room Air 10/21 1404 98.7 84 17 114/70 96 Room Air 10/21 1313 72 126/82 Intake & Output 10/22 1600 10/22 0800 10/22 0000 Intake Total 200 240 Output Total Balance 200 240 Intake, Oral 200 240 Patient 175 lb Weight Exam Other Physical Findings: [id number] heent-room air cvs-s1,s2 lungs-rare rhonchi/right abd-soft, bs+ ext-without edema Results Last 24 Hrs of Lab Results: reviewed Impression/Plan Impression/Plan Impression/Plan: Impression 77 year old man * bilateral lung masses with cavitation * historically sputum culture with Enterobacter * shortness of breath on exertion * weight loss and lack of appetite Plan -f/u pathology/microbiology from IR guided left sided lung mass -continue antibiotics with meropenem and follow up ID recommendations DVT prophylaxis at all times
[2017-10-22 14:30] VITALS: BP 110/71
--- NOTE | 2017-10-22 18:18 | PN- Housestaff ---
Subjective Follow-up For: Multi-cavitay lesions in the lungs Subjective: Patient was examined today .he said that he was doing the same. he continued to have cough. Denies chest pain, wheezing, abdominal symptoms, fever, fatigue. Review of Systems Constitutional: Reports: see HPI. Objective Last 24 Hrs of Vital Signs/I&O Vital Signs Date Time Temp Pulse Resp B/P B/P Pulse O2 O2 Flow FiO2 Mean Ox Delivery Rate 10/22 1600 97 Room Air 10/22 1430 98.5 78 18 110/71 97 Room Air 10/22 1321 86 114/72 10/22 0710 98.0 81 18 113/61 94 10/22 0000 96 Room Air Room Air 10/21 2209 99.2 76 18 129/63 96 Room Air Intake & Output 10/22 1600 10/22 0800 10/22 0000 Intake Total 500 200 240 Output Total Balance 500 200 240 Intake, Oral 500 200 240 Patient 175 lb Weight Physical Exam General Appearance: Alert, Oriented X3, Cooperative, No Acute Distress Cardiovascular: Regular Rate, No Murmurs Lungs: Clear to Auscultation, Normal Air Movement Abdomen: Normal Bowel Sounds, Soft, No Tenderness, No Hepatospenomegaly, No Masses Neurological: Normal Speech, Strength at 5/5 X4 Ext, Normal Tone, Sensation Intact Extremities: No Clubbing, No Cyanosis, No Edema, Normal Pulses, No Tenderness/ Swelling Current Medications: Current Medications Sig/Fernando Start time Last Medication Dose Route Stop Time Status Admin Atorvastatin Calcium 40 MG DAILY 10/20 09 AC 10/22 PO 1322 Enoxaparin Sodium 40 MG DAILY 10/19 09 AC 10/22 SC 1321 Lisinopril 10 MG DAILY 10/19 1850 AC 10/22 PO 1321 Meropenem 1 GM Q8H 10/21 2100 AC 10/22 IV 1321 Meropenem 1 GM Q8H 10/20 0330 DC 10/21 IV 1309 Multivitamins 1 TAB DAILY 10/20 899 AC 10/22 Therapeutic PO 1321 Patient Medication 1 ED ONE ONE 10/21 2014 PA Teaching ED 10/22 2015 Assessment/Plan Assessment: 77-year-old gentleman who is a former smoker (40yr hx), past medical history significant for hypertension and hyperlipidemia, with a recent diagnosis of enterobacter colacae isolated bilateral cavitary multilobar pneumonia with lung abscess treated aggresively with on a 14 day antibiotic course(moxifloxacin), is admitted to the [facility] service with persistent respiratory symptoms in the context of chest x-ray radiological findings showing interval increments when compared to previous study of 09/27/2017. CT Chest IMPRESSION: - Redemonstration of numerous masses and nodules throughout both lungs many of which demonstrate central cavitation. The largest of these lesions is seen in the right lower lobe and measures up to 9.3 cm and has not significantly changed compared with 10/03/2017. Many of the lesions have increased in size and at least one lesion is new (right upper lobe series 2 image 23). - Mild increase in size of small right pleural effusion. 1. Bilateral cavitary multilobar pneumonia - ID recommendation appreciated. The patient is on Meropenem 1g q8 h -Sputum culture gram stain positive for Gram positive cocci and Gram negative rods. Will follow up final report -Blood cultures are negative till date -CT chest with contrast done. Demonstrates interval increase in the number and size of the lesions -Would follow Pulmonary recommendations regarding further decision regarding Lung biosy or Bronchoscopy -ESR: 106, WBC: 9.0 at this time. There has been an interval increase in the ESR. This could demonstrate worsening infection or vasculitis like process -ANCA /ALONDRA level negative. Would follow 2. History of Hypertension and Hyperlipidemia Continue home medications DVT prophylaxis Code status: Full code Problem List: 1. Cavitating mass of lung Pain Ratin Pain Location: none Pain Goal: Remain pain free Pain Plan: none Tomorrow's Labs & Rationales: none
[2017-10-22 22:00] VITALS: BP 125/70
[2017-10-23 06:49] VITALS: BP 124/61
--- NOTE | 2017-10-23 08:34 | PN- Housestaff ---
Subjective Follow-up For: Multi lobar cavitatory pneumonia Subjective: Patient was seen and examined at bedside. He does not report any improvement in his symptoms. 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 The patient denies fever, chills, nause, vomiting. Review of Systems Constitutional: Reports: see HPI. Objective Last 24 Hrs of Vital Signs/I&O Vital Signs Date Time Temp Pulse Resp B/P B/P Pulse O2 O2 Flow FiO2 Mean Ox Delivery Rate 10/23 08 93 Room Air 10/23 0748 98.3 124/61 10/23 0649 98.3 82 18 124/61 93 10/23 0038 95 Room Air Room Air 10/22 2200 98.8 86 16 125/70 95 10/22 1600 97 Room Air Intake & Output 10/23 1600 10/23 0800 10/23 0000 Intake Total 550 120 200 Output Total 450 Balance 100 120 200 Intake, Oral 550 120 200 Output, Urine 450 Patient 179 lb Weight Physical Exam General Appearance: Alert, Oriented X3, Cooperative Neck: Supple Cardiovascular: Regular Rate, Normal S1, Normal S2 Lungs: Clear to Auscultation, mild wheezing on the right side Abdomen: Normal Bowel Sounds, Soft, No Tenderness Assessment/Plan Assessment: 77-year-old gentleman who is a former smoker (40yr hx), past medical history significant for hypertension and hyperlipidemia, with a recent diagnosis of enterobacter colacae isolated bilateral cavitary multilobar pneumonia with lung abscess treated aggresively with on a 14 day antibiotic course(moxifloxacin), is admitted to the [facility] service with persistent respiratory symptoms in the context of chest x-ray radiological findings showing interval increments when compared to previous study of 09/27/2017. CT Chest IMPRESSION: - Redemonstration of numerous masses and nodules throughout both lungs many of which demonstrate central cavitation. The largest of these lesions is seen in the right lower lobe and measures up to 9.3 cm and has not significantly changed compared with 10/03/2017. Many of the lesions have increased in size and at least one lesion is new (right upper lobe series 2 image 23). - Mild increase in size of small right pleural effusion. 1. Bilateral cavitary multilobar pneumonia - ID recommendation appreciated. The patient is on Meropenem 1g q8 h -Sputum culture gram stain positive for Gram positive cocci and Gram negative rods. Will follow up final report -Blood cultures are sterile -CT chest with contrast done. Demonstrates interval increase in the number and size of the lesions -Would follow Pulmonary recommendations regarding further decision regarding Lung biosy or Bronchoscopy -ESR: 106, WBC: 9.0 at this time. There has been an interval increase in the ESR. This could demonstrate worsening infection or vasculitis like process -Legionella AG negative -Repeat sputum cultures negative -ANCA negative -ALONDRA: 13 2. History of Hypertension and Hyperlipidemia Continue home medications DVT prophylaxis Code status: Full code Problem List: 1. Pneumonia 2. Cavitating mass of lung 3. SOB (shortness of breath) 4. Cough Pain Ratin Pain Location: none Pain Goal: Remain pain free Pain Plan: none Tomorrow's Labs & Rationales: none
--- NOTE | 2017-10-23 11:22 | PN- Att Addend ---
Attending Addendum Attending Brief Note Mr. Elias was interviewed and examined. His EMR was reviewed. He states he is feeling better today after having slept well overnight. Still notes a.m. productive cough with brown sputum. He denies fever and chills. He still notes some anorexia but was able to eat breakfast today. 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 He is remained afebrile with stable vital signs. He continues to saturate well on room air. He is in no acute distress. Pulmonary exam is notable for isolated rales posterior laterally on the right at the base. Heart and terminal exams are normal. We are continuing to follow his cultures and his radiographic studies. We are continuing his antibiotic coverage. We are continuing his maintenance medications. We are awaiting the results of his lung biopsy.
--- NOTE | 2017-10-23 13:10 | PN- Pulmonary ---
Subjective HPI/Critical Care Issues: pt seen and examined afebrile hemodynamically stable Saturating well on room air no n/v/d/c, no cp, no coello +exertional dyspnea, improved cough Objective Current Medications: Current Medications Sig/Fernando Start time Last Medication Dose Route Stop Time Status Admin Atorvastatin Calcium 40 MG DAILY 10/20 899 AC 10/23 PO 0748 Enoxaparin Sodium 40 MG DAILY 10/19 0900 AC 10/23 SC 0748 Lisinopril 10 MG DAILY 10/19 1850 AC 10/23 PO 0748 Meropenem 1 GM Q8H 10/21 2100 AC 10/23 IV 1159 Multivitamins 1 TAB DAILY 10/20 09 AC 10/23 Therapeutic PO 0748 Vital Signs & I&O Last 24 Hrs of Vitals and I&O: Vital Signs Date Time Temp Pulse Resp B/P B/P Pulse O2 O2 Flow FiO2 Mean Ox Delivery Rate 10/23 08 93 Room Air 10/23 0748 98.3 124/61 10/23 0649 98.3 82 18 124/61 93 10/23 0038 95 Room Air Room Air 10/22 2200 98.8 86 16 125/70 95 10/22 1600 97 Room Air 10/22 1430 98.5 78 18 110/71 97 Room Air 10/22 1321 86 114/72 Intake & Output 10/23 1600 10/23 0800 10/23 0000 Intake Total 120 200 Output Total Balance 120 200 Intake, Oral 120 200 Patient 179 lb Weight Exam Other Physical Findings: gen-aaox3 heent-room air cvs-s1,s2 lungs-rare rhonchi/right abd-soft, bs+ ext-without edema Results Last 24 Hrs of Lab Results: Laboratory Tests 10/23/17 0813: ESR Westergren 85 H Impression/Plan Impression/Plan Impression/Plan: Impression 77 year old man * bilateral lung masses with cavitation * historically sputum culture with Enterobacter * shortness of breath on exertion * weight loss and lack of appetite Plan -legionella negative, ANCA negative, gram stain from recent IR guided biopsy negative -f/u pathology/microbiology from IR guided left sided lung mass -continue antibiotics with meropenem and follow up ID recommendations DVT prophylaxis at all times
[2017-10-23 16:00] VITALS: BP 116/56
[2017-10-23 20:50] VITALS: BP 122/78
[2017-10-24 06:51] VITALS: BP 113/65
--- NOTE | 2017-10-24 07:26 | PN- Housestaff ---
Subjective Follow-up For: Multilobar cavitating Pneumonia Subjective: Patient was seen and examined at bedside. He reports mild improvement in sputum production. He denies fever, chills. nausea, vomiting. Review of Systems Constitutional: Reports: see HPI. Objective Last 24 Hrs of Vital Signs/I&O Vital Signs Date Time Temp Pulse Resp B/P B/P Pulse O2 O2 Flow FiO2 Mean Ox Delivery Rate 10/24 1412 98.4 77 18 110/84 95 Room Air 10/24 0904 75 126/68 10/24 0800 Room Air 10/24 0651 98.4 77 20 113/65 93 Room Air 10/24 0000 95 Room Air 10/23 2050 98.4 80 20 122/78 95 Room Air 10/23 1600 Room Air 10/23 1600 98.1 74 16 116/56 93 Room Air Intake & Output 10/24 1600 10/24 0800 10/24 0000 Intake Total 600 240 600 Output Total Balance 600 240 600 Intake, Oral 600 240 600 Patient 175 lb Weight Physical Exam General Appearance: Alert, Oriented X3, Cooperative, No Acute Distress Neck: Supple Cardiovascular: Regular Rate, Normal S1, Normal S2, No Murmurs Lungs: Clear to Auscultation Abdomen: Normal Bowel Sounds, Soft, No Tenderness, No Hepatospenomegaly Extremities: No Edema, Normal Pulses Assessment/Plan Assessment: 77-year-old gentleman who is a former smoker (40yr hx), past medical history significant for hypertension and hyperlipidemia, with a recent diagnosis of enterobacter colacae isolated bilateral cavitary multilobar pneumonia with lung abscess treated aggresively with on a 14 day antibiotic course(moxifloxacin), is admitted to the [facility] service with persistent respiratory symptoms in the context of chest x-ray radiological findings showing interval increments when compared to previous study of 09/27/2017. CT Chest IMPRESSION: - Redemonstration of numerous masses and nodules throughout both lungs many of which demonstrate central cavitation. The largest of these lesions is seen in the right lower lobe and measures up to 9.3 cm and has not significantly changed compared with 10/03/2017. Many of the lesions have increased in size and at least one lesion is new (right upper lobe series 2 image 23). - Mild increase in size of small right pleural effusion. 1. Bilateral cavitary multilobar pneumonia - ID recommendation appreciated. The patient is on Meropenem 1g q8 h -Sputum culture gram stain positive for Gram positive cocci and Gram negative rods. Will follow up final report -Blood cultures are sterile -CT chest with contrast done. Demonstrates interval increase in the number and size of the lesions -Would follow Pulmonary recommendations regarding further decision regarding Lung biosy or Bronchoscopy -ESR: 106, WBC: 9.0 at this time. There has been an interval increase in the ESR. This could demonstrate worsening infection or vasculitis like process -Legionella AG negative -Repeat sputum cultures negative -ANCA negative -ALONDRA: 13 -Repeat Chest X-ray, ESR and CRP for the AM 2. History of Hypertension and Hyperlipidemia Continue home medications DVT prophylaxis Code status: Full code Problem List: 1. Pneumonia 2. Pulmonary nodule 3. Hypertension 4. Cavitating mass of lung 5. SOB (shortness of breath) 6. Cough Pain Ratin Pain Location: none Pain Goal: Remain pain free Pain Plan: none Tomorrow's Labs & Rationales: cbc and bep
--- NOTE | 2017-10-24 10:13 | PN- Pulmonary ---
Subjective HPI/Critical Care Issues: Stable but feels weak Appetite is good Objective Current Medications: Current Medications Sig/Fernando Start time Last Medication Dose Route Stop Time Status Admin Atorvastatin Calcium 40 MG DAILY 10/20 899 AC 10/24 PO 09 Enoxaparin Sodium 40 MG DAILY 10/19 09 AC 10/24 SC 09 Lisinopril 10 MG DAILY 10/19 1850 AC 10/24 PO 09 Meropenem 1 GM Q8H 10/21 2100 AC 10/24 IV 0513 Multivitamins 1 TAB DAILY 10/20 899 AC 10/24 Therapeutic PO 09 Vital Signs & I&O Last 24 Hrs of Vitals and I&O: Vital Signs Date Time Temp Pulse Resp B/P B/P Pulse O2 O2 Flow FiO2 Mean Ox Delivery Rate 10/25 903 75 126/68 10/24 0651 98.4 77 20 113/65 93 Room Air 10/24 0000 95 Room Air 10/23 2050 98.4 80 20 122/78 95 Room Air 10/23 1600 Room Air 10/23 1600 98.1 74 16 116/56 93 Room Air Intake & Output 10/24 1600 10/24 0800 10/24 0000 Intake Total 240 600 Output Total Balance 240 600 Intake, Oral 240 600 Patient 175 lb Weight Impression/Plan Impression/Plan Impression/Plan: Sheryl eomi Lungs are clear Heart regular rhythm with no murmur Extremities no cyanosis, clubbing or edema This is a gentleman with HTN and Hyperlipedemia with 40 pack yrs smoker quit many rs ago with recent travel to [facility] has one month history of cough and yellow sputum with poor dention, 30 pound wt loss now has * Worsening large 9 cm cavitary lung abscess with multiple lung massess (prior bx nil sig), despite being on aggressive antibiotic outpatient by mouth therapy with moxifloxacin. Now on IV meropenam (had enterobacter before). Other pathology like inflammatory diseases including polyangiitis versus sarcoidosis etc. is unlikely. Lung biopsy done showed significant inflammation but no evidence suggestive of vasculitis are any granuloma. Patient is HIV negative. Low risk for MTB. Has grown Enterobacter which needs to be treated again with anaerobic coverage. S/p rpt bx * Wt loss recently, prior smoking * HTN and HLD PLAN Intravenous meropenem AMbulate pt - pt ot eval (pt would like a walker to walkaround please provide one WIll consider bronc and bal to the rt lower lobe on tuesday or thr, will update in am RPt cxr in am Rpt esr, cmp in am Hold lisinopril for now and observe BP WIll follow
--- NOTE | 2017-10-24 10:26 | PN- Infect Dx ---
Subjective Subjective: Afebrile. He notes improvement in his cough, which is less frequent and now productive of white/yellow sputum. He also notes improvement in his appetite, though his weight continues to decrease. He continues to report shortness of breath with any exertion. Objective Last 24 Hrs of Vital Signs/I&O Vital Signs Date Time Temp Pulse Resp B/P B/P Pulse O2 O2 Flow FiO2 Mean Ox Delivery Rate 10/25 903 75 126/68 10/24 0651 98.4 77 20 113/65 93 Room Air 10/24 0000 95 Room Air 10/23 2050 98.4 80 20 122/78 95 Room Air 10/23 1600 Room Air 10/23 1600 98.1 74 16 116/56 93 Room Air Intake & Output 10/24 1600 10/24 0800 10/24 0000 Intake Total 240 600 Output Total Balance 240 600 Intake, Oral 240 600 Patient 175 lb Weight Physical Exam Other Physical Findings: He appears comfortable in no acute distress Lungs are clear Heart regular rhythm with no murmur Extremities no cyanosis, clubbing or edema Results Last 24 Hours of Lab Results: Laboratory Tests 10/23 812 Hematology ESR Westergren (0 - 10 MM) 85 H Last 24 Hours of Elder Results: Lower respiratory culture from the CT-guided biopsy October 21 negative Urine Legionella antigen October 21 negative Blood cultures x 2 October 19 negative Assessment/Plan ID Impression: Remains stable, with his temperatures and white blood cell count remaining normal, on Meropenem, Day 5 of treatment for bilateral lung lesions/possible abscesses, status post repeat CT-guided biopsy 3 days ago, with the final culture negative and with the biopsy pending. The specimen was apparently not submitted for AFB or fungal culture, but the AFB can be added on per Microbiology. His previous sputum culture did grow Enterobacter, suggesting that this is an infectious process, though the possibility of a noninfectious process, including autoimmune disorders and malignancy, must still be considered. More unusual opportunistic infections are possible, though he is presumably immunocompetent. Suggestion: 1. Follow-up CT-guided biopsy results 2. Follow-up AFB and previous fungal cultures 3. Await possible bronchoscopy/BAL later this week per Pulmonary 4. Continue Meropenem pending above
[2017-10-24 14:12] VITALS: BP 110/84
[2017-10-24 21:07] VITALS: BP 118/62
[2017-10-25 06:17] VITALS: BP 115/58
--- NOTE | 2017-10-25 07:20 | PN- Housestaff ---
Subjective Follow-up For: Multicavitatory Pneumonia Subjective: Patient was seen and examined at bedside. He reports an improvement in his cough. He states that that all he brought up on a "glob of brown stuff". He also states he feels much better. He denies fever, chills, nausea, vomiting. Review of Systems Constitutional: Reports: see HPI. Objective Last 24 Hrs of Vital Signs/I&O Vital Signs Date Time Temp Pulse Resp B/P B/P Pulse O2 O2 Flow FiO2 Mean Ox Delivery Rate 10/25 0800 94 Room Air Room Air 10/25 0617 98.8 85 18 115/58 93 10/25 0000 95 Room Air 10/24 2107 98.7 79 18 118/62 93 Room Air 10/24 1600 Room Air 10/24 1412 98.4 77 18 110/84 95 Room Air Intake & Output 10/25 1600 10/25 0800 10/25 0000 Intake Total 240 520 Output Total Balance 240 520 Intake, IV 20 Intake, Oral 240 500 Patient 178 lb Weight Physical Exam General Appearance: Alert, Oriented X3, Cooperative, No Acute Distress Cardiovascular: Regular Rate, Normal S1, Normal S2 Lungs: Clear to Auscultation Abdomen: Normal Bowel Sounds, Soft, No Tenderness Extremities: No Edema, Normal Pulses Assessment/Plan Assessment: 77-year-old gentleman who is a former smoker (40yr hx), past medical history significant for hypertension and hyperlipidemia, with a recent diagnosis of enterobacter colacae isolated bilateral cavitary multilobar pneumonia with lung abscess treated aggresively with on a 14 day antibiotic course(moxifloxacin), is admitted to the [facility] service with persistent respiratory symptoms in the context of chest x-ray radiological findings showing interval increments when compared to previous study of 09/27/2017. CT Chest IMPRESSION: - Redemonstration of numerous masses and nodules throughout both lungs many of which demonstrate central cavitation. The largest of these lesions is seen in the right lower lobe and measures up to 9.3 cm and has not significantly changed compared with 10/03/2017. Many of the lesions have increased in size and at least one lesion is new (right upper lobe series 2 image 23). - Mild increase in size of small right pleural effusion. 1. Bilateral cavitary multilobar pneumonia - ID recommendation appreciated. The patient is on Meropenem 1g q8 h -Sputum culture gram stain positive for Gram positive cocci and Gram negative rods. Will follow up final report -Blood cultures are sterile -CT chest with contrast done. Demonstrates interval increase in the number and size of the lesions -Would follow Pulmonary recommendations regarding further decision regarding Lung biosy or Bronchoscopy -ESR: 106, WBC: 9.0 at this time. There has been an interval increase in the ESR. This could demonstrate worsening infection or vasculitis like process -Legionella AG negative -Repeat sputum cultures negative -ANCA negative -ALONDRA: 13 -Repeat Chest X-ray -ESR consistently trending down. 75 today -He is scheduled for a diagnostic bronchoscopy today 2. History of Hypertension and Hyperlipidemia Hold Lisinopril DVT prophylaxis Code status: Full code Problem List: 1. Pneumonia 2. Cavitating mass of lung 3. SOB (shortness of breath) 4. Cough 5. Pulmonary abscess Pain Ratin Pain Location: none Pain Goal: Remain pain free Pain Plan: none Tomorrow's Labs & Rationales: cbc, bep, lft
[2017-10-25 09:59] LABS: ABSOLUTE BASOPHIL COUNT 0 /CUMM (0.0-0.2); ABSOLUTE EOSINOPHIL COUNT 0.3 /CUMM (0.0-0.7); ABSOLUTE GRANULOCYTE CT 8.8 /CUMM (1.4-6.5); ABSOLUTE LYMPH COUNT 0.4 /CUMM (1.2-3.4); ABSOLUTE MONOCYTE COUNT 1.3 /CUMM (0.10-0.60); BASOPHIL % 0.3 % (0.0-2.0); EOSINOPHIL % 2.6 % (0-5); GRANULOCYTE % 81.1 % (42.2-75.2); HEMATOCRIT 34.3 % (42-52); MEAN CORPUSCULAR HGB 27.6 PG (27.0-31.0); MEAN CORPUSCULAR HGB CONC 32.8 G/DL (33.0-37.0); MEAN CORPUSCULAR VOLUME 84.2 FL (80.0-94.0); MEAN PLATELET VOLUME 8.3 FL (7.4-10.4); PLATELET COUNT 555 /CUMM (130-400); RBC DISTRIBUTION WIDTH 14.6 % (11.5-14.5); RED BLOOD CELL CT 4.08 /CUMM (4.70-6.10); WHITE BLOOD CELL COUNT 10.8 /CUMM (4.8-10.8)
--- NOTE | 2017-10-25 11:02 | PN- Pulmonary ---
Subjective HPI/Critical Care Issues: DOing well Afebrile Objective Current Medications: Current Medications Sig/Fernando Start time Last Medication Dose Route Stop Time Status Admin Atorvastatin Calcium 40 MG DAILY 10/20 09 AC 10/25 PO 0810 Enoxaparin Sodium 40 MG DAILY 10/19 0900 AC 10/25 SC 0811 Lisinopril 10 MG DAILY 10/19 1850 DC 10/24 PO 0904 Meropenem 1 GM Q8H 10/21 2100 AC 10/25 IV 0500 Multivitamins 1 TAB DAILY 10/20 899 AC 10/25 Therapeutic PO 0810 Patient Medication 1 ED ONE ONE 10/24 1315 DC Teaching ED 10/24 1316 Vital Signs & I&O Last 24 Hrs of Vitals and I&O: Vital Signs Date Time Temp Pulse Resp B/P B/P Pulse O2 O2 Flow FiO2 Mean Ox Delivery Rate 10/25 0800 94 Room Air Room Air 10/25 0617 98.8 85 18 115/58 93 10/25 0000 95 Room Air 10/24 2107 98.7 79 18 118/62 93 Room Air 10/24 1600 Room Air 10/24 1412 98.4 77 18 110/84 95 Room Air Intake & Output 10/25 1600 10/25 0800 10/25 0000 Intake Total 240 520 Output Total Balance 240 520 Intake, IV 20 Intake, Oral 240 500 Patient 178 lb Weight Impression/Plan Impression/Plan Impression/Plan: Sheryl eomi Lungs are clear Heart regular rhythm with no murmur Extremities no cyanosis, clubbing or edema This is a gentleman with HTN and Hyperlipedemia with 40 pack yrs smoker quit many rs ago with recent travel to [facility] has one month history of cough and yellow sputum with poor dention, 30 pound wt loss now has * Worsening large 9 cm cavitary lung abscess with multiple lung massess (prior bx nil sig), despite being on aggressive antibiotic outpatient by mouth therapy with moxifloxacin. Now on IV meropenam (had enterobacter before). Other pathology like inflammatory diseases including polyangiitis versus sarcoidosis etc. is unlikely. Lung biopsy done showed significant inflammation but no evidence suggestive of vasculitis are any granuloma. Patient is HIV negative. Low risk for MTB. Has grown Enterobacter which needs to be treated again with anaerobic coverage. S/p rpt bx * Wt loss recently, prior smoking * HTN and HLD PLAN Intravenous meropenem Add LFTs to this ams lab Navigational bronch in am with washing and brushing of the cavitaruy lung lesion , Dr Boland to see. Keep npo after midnight RPt cxr Hold lisinopril for now and observe BP WIll follow
--- NOTE | 2017-10-25 11:17 | PN- Infect Dx ---
Subjective Subjective: Afebrile. He feels improved with near resolution of his cough and with improvement in his shortness of breath. Objective Last 24 Hrs of Vital Signs/I&O Vital Signs Date Time Temp Pulse Resp B/P B/P Pulse O2 O2 Flow FiO2 Mean Ox Delivery Rate 10/25 0800 94 Room Air Room Air 10/25 0617 98.8 85 18 115/58 93 10/25 0000 95 Room Air 10/24 2107 98.7 79 18 118/62 93 Room Air 10/24 1600 Room Air 10/24 1412 98.4 77 18 110/84 95 Room Air Intake & Output 10/25 1600 10/25 0800 10/25 0000 Intake Total 240 520 Output Total Balance 240 520 Intake, IV 20 Intake, Oral 240 500 Patient 178 lb Weight Physical Exam Other Physical Findings: He appears comfortable, in better spirits, in no acute distress Lungs few crackles at the right base Heart regular rhythm with no murmur Extremities no cyanosis, clubbing or edema Results Last 24 Hours of Lab Results: Laboratory Tests 10/25 0548 Chemistry Sodium (137 - 145 mmol/L) 134 L Potassium (3.5 - 5.1 mmol/L) 4.9 Chloride (98 - 107 mmol/L) 99 Carbon Dioxide (22 - 30 mmol/L) 25 Anion Gap (5 - 16) 10 BUN (9 - 20 mg/dL) 16 Creatinine (0.7 - 1.2 mg/dL) 0.6 L Estimated GFR (>60 ml/min) > 60 BUN/Creatinine Ratio (7 - 25 %) 26.7 H Hematology CBC w Diff NO MAN DIFF REQ WBC (4.8 - 10.8 /CUMM) 10.8 RBC (4.70 - 6.10 /CUMM) 4.08 L Hgb (14.0 - 18.0 G/DL) 11.3 L Hct (42 - 52 %) 34.3 L MCV (80.0 - 94.0 FL) 84.2 MCH (27.0 - 31.0 PG) 27.6 MCHC (33.0 - 37.0 G/DL) 32.8 L RDW (11.5 - 14.5 %) 14.6 H Plt Count (130 - 400 /CUMM) 555 H MPV (7.4 - 10.4 FL) 8.3 Gran % (42.2 - 75.2 %) 81.1 H Lymphocytes % (20.5 - 51.1 %) 3.6 L Monocytes % (1.7 - 9.3 %) 12.4 H Eosinophils % (0 - 5 %) 2.6 Basophils % (0.0 - 2.0 %) 0.3 Absolute Granulocytes (1.4 - 6.5 /CUMM) 8.8 H Absolute Lymphocytes (1.2 - 3.4 /CUMM) 0.4 L Absolute Monocytes (0.10 - 0.60 /CUMM) 1.3 H Absolute Eosinophils (0.0 - 0.7 /CUMM) 0.3 Absolute Basophils (0.0 - 0.2 /CUMM) 0 ESR Westergren (0 - 10 MM) 75 H Last 24 Hours of Elder Results: No new cultures Assessment/Plan ID Impression: Appears to have improved, with near resolution of his cough and no further complaints of dyspnea, with his temperatures and white blood cell count remaining normal, on Meropenem, Day 6 of treatment for bilateral lung lesions/ possible abscesses, presumably secondary to Enterobacter and, possibly, anaerobes, status post a repeat CT-guided biopsy 4 days ago, with the final culture negative and with the biopsy pending. Noninfectious processes, including autoimmune disorders and malignancy, are still possible though seem less likely given his subjective improvement. Suggestion: 1. Follow-up the results of the recent CT-guided biopsy 2. Further evaluation, with possible bronchoscopy planned for the a.m., per Pulmonary 3. Continue Meropenem
[2017-10-25 14:20] VITALS: BP 124/68
--- NOTE | 2017-10-25 16:00 | RADIOLOGY REPORT ---
EXAMINATION: XR CHEST CLINICAL INFORMATION: Productive cough. COMPARISON: CT chest 10/20/2017 TECHNIQUE: 2 views of the chest were obtained. FINDINGS: The cardiomediastinal silhouette is stable. There is bilateral prominence of the zaire. Overall stable appearance of the multiple bilateral lung masses. No clear new consolidation. No pneumothorax. Biapical pleural-parenchymal scarring. No acute osseous abnormalities. IMPRESSION: Stable appearance of the multiple bilateral pulmonary masses. No clear evidence for a new infiltrate.
--- NOTE | 2017-10-25 16:16 | Patient Discharge Instructions ---
Discharge Instructions General Discharge Information You were seen/treated for: Cavitary lung lesions Watch for these problems: If you have any of these, please visit your nearest emergency department: shortness of breath, chest pain, fever, chills, worsening cough, loss of consciousness Special Instructions: 1. Please inform your primary care doctor about your admission to [facility] 2. Please follow up with within a week of your discharge Diet Continue normal diet: Yes Activity Full Activity/No Limits: Yes Acute Coronary Syndrome Inclusion Criteria At DC or during hospital stay patient has or had the following: ACS DIAGNOSIS No Discharge Core Measures Meds if any: Prescribed or Continued at Discharge Meds if any: NOT Prescribed or Continued at Discharge Congestive Heart Failure Inclusion Criteria At DC or during hospital stay patient has or had the following: CHF DIAGNOSIS No Discharge Core Measures Meds if any: Prescribed or Continued at Discharge Meds if any: NOT Prescribed or Continued at Discharge Cerebrovascular accident Inclusion Criteria At DC or during hospital stay patient has or had the following: CVA/TIA Diagnosis No Discharge Core Measures Meds if any: Prescribed or Continued at Discharge Meds if any: NOT Prescribed or Continued at Discharge Venous thromboembolism Inclusion Criteria VTE Diagnosis No VTE Type NONE VTE Confirmed by (Test) NONE Discharge Core Measures - Per Current guidelines, there needs to be overlap - treatment for the first 5 days of Warfarin therapy. - If discharged on Warfarin prior to 5 days of - overlap therapy, the patient will need to be - assessed for post discharge needs including - *Post discharge parental anticoagulation - *Warfarin and/or parental anticoagulation education - *Follow up date to check INR post discharge At least 5 days overlap therapy as Inpatient No Meds if any: Prescribed or Continued at Discharge Note: Overlap Therapy is Warfarin and Anticoagulant Meds if any: NOT Prescribed or Continued at Discharge
[2017-10-25 22:43] VITALS: BP 118/59
[2017-10-26 07:03] VITALS: BP 122/75
--- NOTE | 2017-10-26 07:21 | PN- Housestaff ---
Subjective Follow-up For: Multilobar cavitatory pneumonia Subjective: Patient was seen and examined at bedside. He does not have any new complaints. He is due for diagnostic bronchoscopy later in the day today. Patient did spike a fever to 100.2 yesterday but has been afebrile siince. Review of Systems Constitutional: Reports: see HPI. Objective Last 24 Hrs of Vital Signs/I&O Vital Signs Date Time Temp Pulse Resp B/P B/P Pulse O2 O2 Flow FiO2 Mean Ox Delivery Rate 10/26 1340 98.1 85 18 108/57 92 Room Air 10/26 0800 93 Nasal Cannula 10/26 0759 98.3 10/26 0703 100.2 91 18 122/75 93 Room Air 10/25 2243 99.0 52 20 118/59 95 Room Air 10/25 1600 96 Room Air Intake & Output 10/26 1600 10/26 0800 10/26 0000 Intake Total 1860 Output Total 350 400 250 Balance 1510 -400 -250 Intake, IV 1500 Intake, Oral 360 Output, Urine 350 400 250 Patient 172 lb Weight Physical Exam General Appearance: Alert, Oriented X3, Cooperative, No Acute Distress Neck: Supple Cardiovascular: Regular Rate, Normal S1, Normal S2, No Murmurs Lungs: Clear to Auscultation, Normal Air Movement Abdomen: Normal Bowel Sounds, Soft, No Tenderness Assessment/Plan Assessment: 77-year-old gentleman who is a former smoker (40yr hx), past medical history significant for hypertension and hyperlipidemia, with a recent diagnosis of enterobacter colacae isolated bilateral cavitary multilobar pneumonia with lung abscess treated aggresively with on a 14 day antibiotic course(moxifloxacin), is admitted to the [facility] service with persistent respiratory symptoms in the context of chest x-ray radiological findings showing interval increments when compared to previous study of 09/27/2017. CT Chest IMPRESSION: - Redemonstration of numerous masses and nodules throughout both lungs many of which demonstrate central cavitation. The largest of these lesions is seen in the right lower lobe and measures up to 9.3 cm and has not significantly changed compared with 10/03/2017. Many of the lesions have increased in size and at least one lesion is new (right upper lobe series 2 image 23). - Mild increase in size of small right pleural effusion. 1. Bilateral cavitary multilobar pneumonia - ID recommendation appreciated. The patient is on Meropenem 1g q8 h -Sputum culture gram stain positive for Gram positive cocci and Gram negative rods. Will follow up final report -Blood cultures are sterile -CT chest with contrast done. Demonstrates interval increase in the number and size of the lesions -Would follow Pulmonary recommendations regarding further decision regarding Lung biosy or Bronchoscopy -ESR: 106, WBC: 9.0 at this time. There has been an interval increase in the ESR. This could demonstrate worsening infection or vasculitis like process -Legionella AG negative -Repeat sputum cultures negative -ANCA negative -ALONDRA: 13 -Repeat Chest X-ray -ESR consistently trending down. 75 today -He is scheduled for a diagnostic bronchoscopy today -Repeat ESR and CXR on Tuesday 2. History of Hypertension and Hyperlipidemia Hold Lisinopril DVT prophylaxis Code status: Full code Problem List: 1. Pneumonia 2. Hypertension 3. Cavitating mass of lung 4. SOB (shortness of breath) 5. Cough Pain Ratin Pain Location: none Pain Goal: Remain pain free Pain Plan: none Tomorrow's Labs & Rationales: cbc and bep
--- NOTE | 2017-10-26 07:22 | PN- Student ---
Subjective Subjective: Pt reports productive cough and dyspnea. He denies fever, chills, nausea, vomiting. Pt is apprehensive about procedure; states he's had cough for 6 weeks and wants to know what it is. Currently NPO. Objective Objective: Exam: Gen: sitting in bed in NAD Cardiac: RRR, no M, R, G Lungs: Decreased breath sounds in R lower lung. Othwise, CTA, no rales, rhonchi , or wheezing. Results Results: Laboratory Tests 10/26/17 0605: Sodium Pending, Potassium Pending, Chloride Pending, Carbon Dioxide Pending, Anion Gap Pending, BUN Pending, Creatinine Pending, BUN/Creatinine Ratio Pending , Total Bilirubin Pending, Direct Bilirubin Pending, AST Pending, ALT Pending, Alkaline Phosphatase Pending, Total Protein Pending, Albumin Pending, CBC w Diff Pending, WBC Pending, RBC Pending, Hgb Pending, Hct Pending, MCV Pending, MCH Pending, MCHC Pending, RDW Pending, Plt Count Pending, MPV Pending 10/25/17 0548: Anion Gap 10, Estimated GFR > 60, BUN/Creatinine Ratio 26.7 H, Total Bilirubin 0.3, Direct Bilirubin 0.2, AST 54, ALT 66, Alkaline Phosphatase 102, Total Protein 5.2 L, Albumin 2.8 L, CBC w Diff NO MAN DIFF REQ, RBC 4.08 L, MCV 84.2, MCH 27.6, MCHC 32.8 L, RDW 14.6 H, MPV 8.3, Gran % 81.1 H, Lymphocytes % 3.6 L, Monocytes % 12.4 H, Eosinophils % 2.6, Basophils % 0.3, Absolute Granulocytes 8.8 H, Absolute Lymphocytes 0.4 L, Absolute Monocytes 1.3 H, Absolute Eosinophils 0.3, Absolute Basophils 0, ESR Westergren 75 H 10/23/17 0813: ESR Westergren 85 H Exam & Diagnostic Data Last 24 Hrs of Vital Signs/I&O Vital Signs Date Time Temp Pulse Resp B/P B/P Pulse O2 O2 Flow FiO2 Mean Ox Delivery Rate 10/26 0703 100.2 91 18 122/75 93 Room Air 10/25 2243 99.0 52 20 118/59 95 Room Air 10/25 1600 96 Room Air 10/25 1420 98.2 89 20 124/68 96 Room Air 10/25 0800 94 Room Air Room Air Intake & Output 10/26 0800 10/26 0000 10/25 1600 Intake Total 720 Output Total 400 250 Balance -400 -250 720 Intake, Oral 720 Output, Urine 400 250 Patient 172 lb Weight Last 24 Hrs of Labs/Elder: Laboratory Tests 10/26/17 0605: Anion Gap 9, Estimated GFR > 60, BUN/Creatinine Ratio 25.0, Total Bilirubin 0.4, Direct Bilirubin 0.2, AST 54, ALT 72, Alkaline Phosphatase 104, Total Protein 5.4 L, Albumin 2.7 L, CBC w Diff NO MAN DIFF REQ, RBC 4.15 L, MCV 84.1, MCH 27.8, MCHC 33.0, RDW 14.3, MPV 8.3, Gran % 82.1 H, Lymphocytes % 3.3 L, Monocytes % 12.6 H, Eosinophils % 1.9, Basophils % 0.1, Absolute Granulocytes 8.7 H, Absolute Lymphocytes 0.4 L, Absolute Monocytes 1.3 H, Absolute Eosinophils 0.2, Absolute Basophils 0 Assessment/Plan Assessment: Pt is a 77 y/o M w/ 40 yr history of smoking and PMH of HTN and HLD w/ bilateral cavitary multilobar pneumonia w/ lung abscess. Pt is febrile. Pre-op diagnosis: bilateral cavitary multilobar pneumonia w/ lung abscess Planned procedure and time: navigational bronchoscopy w/ fluoroscopy and biopsy Labs: CBC notable for high WBCs, high platelets, mild anemia. Chemistry remarkable for mild hyponatremia. Chest X-ray: FINDINGS: The cardiomediastinal silhouette is stable. There is bilateral prominence of the zaire. Overall stable appearance of the multiple bilateral lung masses. No clear new consolidation. No pneumothorax. Biapical pleural-parenchymal scarring. No acute osseous abnormalities. IMPRESSION: Stable appearance of the multiple bilateral pulmonary masses. No clear evidence for a new infiltrate. Orders: NPO, Meropenem 1g Q8hrs IV Anesthesia: ASA score 3 Consent: signed and on chart
[2017-10-26 09:28] LABS: ABSOLUTE BASOPHIL COUNT 0 /CUMM (0.0-0.2); ABSOLUTE EOSINOPHIL COUNT 0.2 /CUMM (0.0-0.7); ABSOLUTE GRANULOCYTE CT 8.7 /CUMM (1.4-6.5); ABSOLUTE LYMPH COUNT 0.4 /CUMM (1.2-3.4); ABSOLUTE MONOCYTE COUNT 1.3 /CUMM (0.10-0.60); BASOPHIL % 0.1 % (0.0-2.0); EOSINOPHIL % 1.9 % (0-5); GRANULOCYTE % 82.1 % (42.2-75.2); HEMATOCRIT 34.9 % (42-52); MEAN CORPUSCULAR HGB 27.8 PG (27.0-31.0); MEAN CORPUSCULAR VOLUME 84.1 FL (80.0-94.0); MEAN PLATELET VOLUME 8.3 FL (7.4-10.4); PLATELET COUNT 580 /CUMM (130-400); RBC DISTRIBUTION WIDTH 14.3 % (11.5-14.5); RED BLOOD CELL CT 4.15 /CUMM (4.70-6.10); WHITE BLOOD CELL COUNT 10.6 /CUMM (4.8-10.8)
--- NOTE | 2017-10-26 13:07 | RADIOLOGY REPORT ---
EXAMINATION: XR PORTABLE CHEST CLINICAL INFORMATION: Navigational bronchoscopy. COMPARISON: CT chest 10/21/2017. TECHNIQUE: Portable frontal view of the chest was obtained. FINDINGS: There are numerous rounded pulmonary masses involving both lungs, some of which demonstrate central cavitation. There is no new or worsening airspace disease. No pleural effusion or pneumothorax. The cardiac silhouette and upper mediastinal contours are normal. No acute osseous finding. IMPRESSION: Numerous pulmonary masses involving both lungs are redemonstrated. No new or worsening consolidation. No pleural effusion or pneumothorax.
[2017-10-26 13:40] VITALS: BP 108/57
--- NOTE | 2017-10-26 13:45 | PN- Pulmonary ---
Subjective HPI/Critical Care Issues: stable s/p bronch with bal Objective Current Medications: Current Medications Sig/Fernando Start time Last Medication Dose Route Stop Time Status Admin Acetaminophen 0 .STK-MED ONE 10/26 0742 DC IV Atorvastatin Calcium 40 MG DAILY 10/20 899 AC 10/26 PO 0854 Enoxaparin Sodium 40 MG DAILY 10/19 899 AC 10/26 SC 0854 Fentanyl Citrate 0 .STK-MED ONE 10/26 0743 DC .ROUTE Meropenem 1 GM Q8H 10/21 2100 AC 10/26 IV 1333 Midazolam HCl 0 .STK-MED ONE 10/26 741 DC .ROUTE Multivitamins 1 TAB DAILY 10/20 899 AC 10/26 Therapeutic PO 0854 Vital Signs & I&O Last 24 Hrs of Vitals and I&O: Vital Signs Date Time Temp Pulse Resp B/P B/P Pulse O2 O2 Flow FiO2 Mean Ox Delivery Rate 10/27 799 93 Nasal Cannula 10/26 0759 98.3 10/26 0703 100.2 91 18 122/75 93 Room Air 10/25 2243 99.0 52 20 118/59 95 Room Air 10/25 1600 96 Room Air 10/25 1420 98.2 89 20 124/68 96 Room Air Intake & Output 10/26 1600 10/26 0800 10/26 0000 Intake Total Output Total 400 250 Balance -400 -250 Output, Urine 400 250 Patient 172 lb Weight Impression/Plan Impression/Plan Impression/Plan: Sheryl eomi Lungs are clear Heart regular rhythm with no murmur Extremities no cyanosis, clubbing or edema This is a gentleman with HTN and Hyperlipedemia with 40 pack yrs smoker quit many rs ago with recent travel to [facility] has one month history of cough and yellow sputum with poor dention, 30 pound wt loss now has * Worsening large 9 cm cavitary lung abscess with multiple lung massess (prior bx nil sig), despite being on aggressive antibiotic outpatient by mouth therapy with moxifloxacin. Now on IV meropenam (had enterobacter before). Other pathology like inflammatory diseases including polyangiitis versus sarcoidosis etc. is unlikely. Lung biopsy done showed significant inflammation but no evidence suggestive of vasculitis are any granuloma. Patient is HIV negative. Low risk for MTB. Has grown Enterobacter which needs to be treated again with anaerobic coverage. S/p rpt bx. S/p bronch with bal - no sig purulence noted * Wt loss recently, prior smoking * HTN and HLD PLAN Intravenous meropenem Cont to monitor on abx, will consider changing to po in 24-48 hrs Await bx RPt cxr on tuesday, with esr Hold lisinopril for now and observe BP WIll follow
--- NOTE | 2017-10-26 15:14 | Cons- Thoracic Surgery ---
General Information and HPI Consulting Request Date of Consult: 10/25/17 Requested By: Halina PRECIADO,Piotr Riggs Reason for Consult: Evaluate for possible navigational bronchoscopy to evaluate bilateral lung nodules Source of Information: patient, family, old records, PCP Exam Limitations: no limitations History of Present Illness: Patient is a 77-year-old gentleman with a recent admission to [facility] for pneumonia. He subsequent to discharge had progression of a productive cough and exertional dyspnea and was readmitted on 10/19/2017. Radiographic imaging has shown progression of his bilateral pulmonary nodular disease with cavitation of the right lower lobe lung nodule. CT needle biopsies have been nondiagnostic and thoracic surgical opinion is asked for possible navigational bronchoscopy to evaluate right lower lobe cavitating mass. Allergies/Medications Allergies: Coded Allergies: NO KNOWN ALLERGIES (09/24/13) Home Med List: Aspirin (Aspirin*) 81 MG TAB.CHEW 1 TAB PO DAILY HEART HEALTH (Reported) Calcium (Elemental-Fr Calcarb) (Calcium) 600 MG CALCIUM (1,500 MG) TABLET 1 TAB PO DAILY SUPPLEMENT (Reported) Lisinopril 10 MG TABLET 1 TAB PO DAILY HEART (Reported) Multivitamin (Daily Multiple Vitamin) 1 EACH TABLET 1 TAB PO DAILY VITAMIN SUPPORT (Reported) [place]-3 Fatty Acids/Fish Oil (Fish Oil 1,000 MG Capsule) 340 MG-1,000 MG CAPSULE 1 CAP PO DAILY SUPPLEMENT (Reported) Rosuvastatin Calcium (Crestor) 10 MG TABLET 1 TAB PO DAILY CHOLESTEROL ( Reported) Vit A/Vit C/Vit E/Zinc/Copper (Preservision Areds Softgel) 14,320-226 CAPSULE 1 CAP PO DAILY EYE (Reported) Current Medications: Current Medications Sig/Fernando Start time Last Medication Dose Route Stop Time Status Admin Acetaminophen 0 .STK-MED ONE 10/26 741 DC IV Atorvastatin Calcium 40 MG DAILY 10/20 09 AC 10/26 PO 0854 Enoxaparin Sodium 40 MG DAILY 10/19 09 AC 10/26 SC 0854 Fentanyl Citrate 0 .STK-MED ONE 10/26 0743 DC .ROUTE Meropenem 1 GM Q8H 10/21 2100 AC 10/26 IV 1333 Midazolam HCl 0 .STK-MED ONE 10/26 0742 DC .ROUTE Multivitamins 1 TAB DAILY 10/20 899 AC 10/26 Therapeutic PO 0854 Past History Medical History Blood Transfusion Hx: No Neurological: NONE EENT: cataracts, GLAUCOMA BOTH EYES Cardiovascular: hypertension, hyperlipidemia Respiratory: NONE Gastrointestinal: GERD Hepatic: NONE Renal: NONE Musculoskeletal: NONE Psychiatric: NONE Endocrine: NONE Blood Disorders: NONE Cancer(s): NONE 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 Home Services at Home: None Smoking Status: Former Smoker ETOH Use: denies use Illicit Drug Use: denies illicit drug use Review of Systems Review of Systems: Review of systems is notable for the cough which is been productive of yellowish sputum. He has exertional dyspnea. He has had a 30 pound weight loss and associated anorexia. There have been no fevers night sweats or chills. He has had no travel to endemic areas and no tuberculosis exposure. Laboratory evaluation for inflammatory disease and for tuberculosis has been negative. Exam & Diagnostic Data Vital Signs and I&O Vital Signs Date Time Temp Pulse Resp B/P B/P Pulse O2 O2 Flow FiO2 Mean Ox Delivery Rate 10/26 1340 98.1 85 18 108/57 92 Room Air 10/26 0800 93 Nasal Cannula 10/26 0759 98.3 10/26 0703 100.2 91 18 122/75 93 Room Air 10/25 2243 99.0 52 20 118/59 95 Room Air 10/25 1600 96 Room Air Intake & Output 10/26 1600 10/26 0800 10/26 0000 10/25 1600 10/25 0800 10/25 0000 Intake Total 1860 720 240 520 Output Total 350 400 250 Balance 1510 -400 -250 720 240 520 Intake, IV 1500 20 Intake, Oral 360 720 240 500 Output, Urine 350 400 250 Patient 172 lb 178 lb Weight Physical Exam: On physical examination he appears well. His skin is warm and well perfused no suspicious lesions noted. The sclerae are anicteric and his mucous membranes are moist. There is no cervical or subclavicular lymphadenopathy. His breath sounds are fairly clear bilaterally with no wheezes rhonchi noted. The cardiac exam shows a regular rhythm and rate with no murmurs or sounds. The abdomen is soft and nontender with no masses. The periphery shows no cyanosis clubbing or edema. His neurologic exam is grossly normal motor and sensory function. Last 24 Hours of Labs: Laboratory Tests 10/26 06 Chemistry Sodium (137 - 145 mmol/L) 133 L Potassium (3.5 - 5.1 mmol/L) 4.8 Chloride (98 - 107 mmol/L) 99 Carbon Dioxide (22 - 30 mmol/L) 26 Anion Gap (5 - 16) 9 BUN (9 - 20 mg/dL) 15 Creatinine (0.7 - 1.2 mg/dL) 0.6 L Estimated GFR (>60 ml/min) > 60 BUN/Creatinine Ratio (7 - 25 %) 25.0 Total Bilirubin (0.2 - 1.3 mg/dL) 0.4 Direct Bilirubin (< 0.4 mg/dL) 0.2 AST (17 - 59 U/L) 54 ALT (21 - 72 U/L) 72 Alkaline Phosphatase (< 127 U/L) 104 Total Protein (6.3 - 8.2 g/dL) 5.4 L Albumin (3.5 - 5.0 g/dL) 2.7 L Hematology CBC w Diff NO MAN DIFF REQ WBC (4.8 - 10.8 /CUMM) 10.6 RBC (4.70 - 6.10 /CUMM) 4.15 L Hgb (14.0 - 18.0 G/DL) 11.5 L Hct (42 - 52 %) 34.9 L MCV (80.0 - 94.0 FL) 84.1 MCH (27.0 - 31.0 PG) 27.8 MCHC (33.0 - 37.0 G/DL) 33.0 RDW (11.5 - 14.5 %) 14.3 Plt Count (130 - 400 /CUMM) 580 H MPV (7.4 - 10.4 FL) 8.3 Gran % (42.2 - 75.2 %) 82.1 H Lymphocytes % (20.5 - 51.1 %) 3.3 L Monocytes % (1.7 - 9.3 %) 12.6 H Eosinophils % (0 - 5 %) 1.9 Basophils % (0.0 - 2.0 %) 0.1 Absolute Granulocytes (1.4 - 6.5 /CUMM) 8.7 H Absolute Lymphocytes (1.2 - 3.4 /CUMM) 0.4 L Absolute Monocytes (0.10 - 0.60 /CUMM) 1.3 H Absolute Eosinophils (0.0 - 0.7 /CUMM) 0.2 Absolute Basophils (0.0 - 0.2 /CUMM) 0 Imaging Results: PATIENT: JENNIFER AGRAWAL PRESENT AGE: 77 PATIENT ACCOUNT NO: [id number] : 42 LOCATION: 2NB ORDERING PHYSICIAN: Conrad Blakely MD SERVICE DATE: 10/20/17- EXAM TYPE: CAT - CT CHEST W IV CONTRAST EXAMINATION: CT CHEST WITH CONTRAST CLINICAL INFORMATION: Lung abscess. COMPARISON: Chest CT 10/03/2017. TECHNIQUE: Multidetector volumetric CT imaging of the chest was obtained after the administration of 79 mL of Optiray 320 intravenous contrast without immediate adverse reactions. Axial MIP volume rendering provided. Sagittal and coronal reformatted images were obtained. DLP: 286 mGy-cm FINDINGS: LUNGS: There is redemonstration of numerous masses and nodules throughout both lungs many of which demonstrate central cavitation. The largest of these lesions is seen in the right lower lobe and measures up to 9.3 cm in maximal oblique dimension which is similar to the prior study although the central area of cavitation has mildly increased in size. Most of the lesions have increased in size compared with 10/03/2017. For example in the right lower lobe lesion now measures 3.4 cm, previously 2.0 cm (series 2 image 42 compared with series 2 image 47). A lesion in the medial aspect of the left lower lobe now measures 2.8 cm, previously 2.3 cm (series 2 image 51 compared with series 2 image 51). A lesion in the right upper lobe is new from prior (series 2 image 23). Otherwise, no definite additional new lesions are seen. MEDIASTINUM: A subcarinal lymph node measures 1.4 cm, slightly increased from prior. Additional nonenlarged mediastinal lymph nodes are noted. PLEURA: Increased size of small right pleural effusion. No pneumothorax. AXILLA: No lymphadenopathy. UPPER ABDOMEN: The visualized portions of the upper abdominal viscera are within normal limits. OSSEOUS STRUCTURES: Advanced spondylotic changes throughout the thoracic spine. No acute fracture. No destructive osseous lesion. Old healed right-sided rib fractures are noted. IMPRESSION: - Redemonstration of numerous masses and nodules throughout both lungs many of which demonstrate central cavitation. The largest of these lesions is seen in the right lower lobe and measures up to 9.3 cm and has not significantly changed compared with 10/03/2017. Many of the lesions have increased in size and at least one lesion is new (right upper lobe series 2 image 23). - Mild increase in size of small right pleural effusion. DICTATED BY: Bronson Mullins MD DATE/TIME DICTATED:10/20/171518 MAORI PHYSIOTHERAPIST:SON DATE/TIME TRANSCRIBED:10/20/171518 CONFIDENTIAL, DO NOT COPY WITHOUT APPROPRIATE AUTHORIZATION. <Electronically signed in Other Vendor System> SIGNED BY: Bronson Mullins MD 10/20/17 1048 Assessment/Plan Assessment/Plan 77-year-old gentleman with general pulmonary and systemic illness and enlarging cavitating bilateral lung nodules. The differential diagnosis is equally infectious inflammatory and neoplastic. I have loaded his CT scan into the super dimension navigational bronchoscopy program and there is evidence of a pathway to the right lower lobe cavitating lesion. It is notable that it appears that the bronchus that would be responsible for aerating that area appears to be completely obstructed and is probably obstructed with the wall of the cavity. However I think it is worthwhile to attempt navigational bronchoscopy and there is a second lesion in the lower lobe which can be approached in the same fashion. I explained the risks and benefits of the procedure to the patient and he understands and agrees. We will proceed tomorrow with navigational bronchoscopy for biopsies and evaluations of his right lower lobe lung Consult Acknowledgment - Thank you for your consult request.
--- NOTE | 2017-10-26 15:17 | Operative Report ---
Operative/Inv Procedure Report Surgery Date: 10/26/17 Name of Procedure: Navigational bronchoscopy with fine-needle aspirates, brushings, direct forceps biopsies and bronchoalveolar lavage Pre-Operative Diagnosis: Multiple bilateral pulmonary nodules Post-Operative Diagnosis: Same Estimated Blood Loss: none Surgeon/Pediatric Lpn: Dr. Boland Anesthesia: general endotracheal tube Operative/Procedure Note Note: After placement of monitoring lines and induction of general anesthesia survey bronchoscopy was done. The endobronchial anatomy was normal and there were no endobronchial lesions. The navigational system was then registered and the guider catheter was advanced to the bronchus of the right lower lobe. There was clearly an obstruction of the bronchus and multiple instrument passing's would not allow entry into the cavitating lesion. We went more lateral and appear to be directed directly towards the lesion. Fine-needle aspirates forceps biopsies and bronchoalveolar lavage were done of this area and sent for pathology along with cultures. The guider catheter was then advanced to the separate lesion which is the non- cavitating lesion in the basilar segment. Brushings and forceps biopsies were taken of this area and bronchoalveolar lavage fluid was sent for both histology and for cultures. At the end of the procedure there was no evidence of any hemorrhage. The patient tolerated procedure well and was brought to the recovery room awake and extubated in stable condition.
--- NOTE | 2017-10-26 16:23 | RADIOLOGY REPORT ---
EXAMINATION: CR ABDOMEN/INTRAOPERATIVE FLUOROSCOPY CLINICAL INDICATION: Additional bronchoscopy of the right lower lung performed by Dr. Boland COMPARISON: Chest radiograph 10/26/2017 TECHNIQUE/FINDINGS: Fluoroscopic equipment was dedicated to the operating room for the performance of an intraoperative procedure. 10 spot films were acquired and are archived in PACS. Please refer to operative notes for procedural detail. FLUOROSCOPY TIME: 6 minutes 34 seconds IMPRESSION: Administrative dictation for intraoperative fluoroscopy and image archiving in PACS. Please refer to operative notes for details.
--- NOTE | 2017-10-26 17:53 | PN- Student ---
Subjective Subjective: Pt reports fatigue, denies current cough/dyspnea. reports improvement of cough/dyspnea since several weeks ago. He denies fever, chills, nausea, vomiting , chest pain, abdominal pain. Pt reports good appetite, is voiding, and has not had BM or flatus since bronchoscopy. 10/26/17 0605: Sodium Pending, Potassium Pending, Chloride Pending, Carbon Dioxide Pending, Anion Gap Pending, BUN Pending, Creatinine Pending, BUN/Creatinine Ratio Pending , Total Bilirubin Pending, Direct Bilirubin Pending, AST Pending, ALT Pending, Alkaline Phosphatase Pending, Total Protein Pending, Albumin Pending, CBC w Diff Pending, WBC Pending, RBC Pending, Hgb Pending, Hct Pending, MCV Pending, MCH Pending, MCHC Pending, RDW Pending, Plt Count Pending, MPV Pending 10/25/17 0548: Anion Gap 10, Estimated GFR > 60, BUN/Creatinine Ratio 26.7 H, Total Bilirubin 0.3, Direct Bilirubin 0.2, AST 54, ALT 66, Alkaline Phosphatase 102, Total Protein 5.2 L, Albumin 2.8 L, CBC w Diff NO MAN DIFF REQ, RBC 4.08 L, MCV 84.2, MCH 27.6, MCHC 32.8 L, RDW 14.6 H, MPV 8.3, Gran % 81.1 H, Lymphocytes % 3.6 L, Monocytes % 12.4 H, Eosinophils % 2.6, Basophils % 0.3, Absolute Granulocytes 8.8 H, Absolute Lymphocytes 0.4 L, Absolute Monocytes 1.3 H, Absolute Eosinophils 0.3, Absolute Basophils 0, ESR Westergren 75 H 10/23/17 0813: ESR Westergren 85 H Exam & Diagnostic Data Last 24 Hrs of Vital Signs/I&O Vital Signs Date Time Temp Pulse Resp B/P B/P Pulse O2 O2 Flow FiO2 Mean Ox Delivery Rate 10/26 0703 100.2 91 18 122/75 93 Room Air 10/25 2243 99.0 52 20 118/59 95 Room Air 10/25 1600 96 Room Air 10/25 1420 98.2 89 20 124/68 96 Room Air 10/25 0800 94 Room Air Room Air Intake & Output 10/26 0800 10/26 0000 10/25 1600 Intake Total 720 Output Total 400 250 Balance -400 -250 720 Intake, Oral 720 Output, Urine 400 250 Patient 172 lb Weight Last 24 Hrs of Labs/Elder: Laboratory Tests 10/26/17 0605: Anion Gap 9, Estimated GFR > 60, BUN/Creatinine Ratio 25.0, Total Bilirubin 0.4, Direct Bilirubin 0.2, AST 54, ALT 72, Alkaline Phosphatase 104, Total Protein 5.4 L, Albumin 2.7 L, CBC w Diff NO MAN DIFF REQ, RBC 4.15 L, MCV 84.1, MCH 27.8, MCHC 33.0, RDW 14.3, MPV 8.3, Gran % 82.1 H, Lymphocytes % 3.3 L, Monocytes % 12.6 H, Eosinophils % 1.9, Basophils % 0.1, Absolute Granulocytes 8.7 H, Absolute Lymphocytes 0.4 L, Absolute Monocytes 1.3 H, Absolute Eosinophils 0.2, Absolute Basophils 0 Assessment/Plan Assessment: Pt is a 77 y/o M w/ 40 yr history of smoking and PMH of HTN and HLD w/ bilateral cavitary multilobar pneumonia w/ lung abscess. Pt is febrile. Pre-op diagnosis: bilateral cavitary multilobar pneumonia w/ lung abscess Planned procedure and time: navigational bronchoscopy w/ fluoroscopy and biopsy Labs: CBC notable for high WBCs, high platelets, mild anemia. Chemistry remarkable for mild hyponatremia. Chest X-ray: FINDINGS: The cardiomediastinal silhouette is stable. There is bilateral prominence of the zaire. Overall stable appearance of the multiple bilateral lung masses. No clear new consolidation. No pneumothorax. Biapical pleural-parenchymal scarring. No acute osseous abnormalities. IMPRESSION: Stable appearance of the multiple bilateral pulmonary masses. No clear evidence for a new infiltrate. Orders: NPO, Meropenem 1g Q8hrs IV Anesthesia: ASA score 3 Consent: signed and on chart NOTE ENTERED BY: Brittany Reddy DATE/TIME ENTERED:10/26/17716 REPORT NUMBER:[id number] Objective Objective: Physical: Gen: sitting in bed in NAD Cardiac: RRR, no M, R, G Lungs: Fine crackles in R lung base. Othwise, CTA, no rales or rhonchi. Abdomen: +BS, soft, nontender, nondistended Assessment/Plan Assessment: Pt is a 77 y/o M w/ 40 yr history of smoking and PMH of HTN and HLD w/ bilateral cavitary multilobar pneumonia w/ lung abscess. Neuro: no pain relief needed at this time Cardiac: atorvastatin 40mg PO Lungs: incentive spirometry 10x per hr, ambulate independently GI: normal diet : voiding independently Heme: 40mg enoxaparin daily SC Infectious: meropenem 1g Q8H IV Dispo/other: F/u pathology, cytology, and lung fluid cultures am labs
[2017-10-26 22:19] VITALS: BP 130/72
--- NOTE | 2017-10-27 06:40 | PN- Student ---
Subjective Subjective: Pt feels well, no acute complaints. Sleeping and eating well, still no BM, but has flatus and is voiding independently. Cough and dyspnea has improved since yesterday, produced streaks of blood w/ coughing yesterday after bronchoscopy but otherwise nonproductive. Denies all other ROS (no fever, chills, chest pain, SOB, abd pain, back pain, leg swelling/edema). Objective Objective: Exam: Gen: NAD Cardiac: normal S1S2, no M, R, G Lungs: very slight crackles in R lung base, otherwise CTA BL Abdomen: +BS, soft, nondistended, nontender Extremities: no edema, DP/PT pulses 2+ BL Assessment/Plan Plan: Pt is a 77 y/o M w/ 40 yr history of smoking and PMH of HTN and HLD w/ bilateral cavitary multilobar pneumonia w/ lung abscess. Pt is stable. Neuro: no pain relief needed at this time Cardiac: atorvastatin 40mg PO Lungs: ambulate independently GI: normal diet : voiding independently Heme: 40mg enoxaparin daily SC Infectious: meropenem 1g Q8H IV Dispo/other: F/u pathology, cytology, and lung fluid cultures Consider changing to PO abx Rpt CXR on Tuesday w/ ESR am labs
[2017-10-27 06:51] VITALS: BP 115/64
--- NOTE | 2017-10-27 07:23 | PN- Housestaff ---
Subjective Follow-up For: Multilcavitatory pneumonia Subjective: Patient was seen and examined at bedside. He states he feels much better. He endorses of an improvement in his cough and also reduction in sputum production. He had a mild streaking of blood in his sputum after bronchoscopy yesterday, otherwise unremarkable. He says he is not as short of breath when he gets up and walks. He is looking forward to going to [place] late November. Denies fever, chills, nausea, vomiting. Review of Systems Constitutional: Reports: see HPI. Objective Last 24 Hrs of Vital Signs/I&O Vital Signs Date Time Temp Pulse Resp B/P B/P Pulse O2 O2 Flow FiO2 Mean Ox Delivery Rate 10/27 0651 97.8 71 18 115/64 95 10/26 2219 97.5 74 18 130/72 95 Room Air 10/26 1600 92 Room Air 10/26 1340 98.1 85 18 108/57 92 Room Air Intake & Output 10/27 1600 10/27 0800 10/27 0000 Intake Total 120 120 Output Total Balance 120 120 Intake, Oral 120 120 Patient 174 lb 172 lb Weight Weight Bed scale Measurement Method Physical Exam General Appearance: Alert, Oriented X3, Cooperative, No Acute Distress Neck: Supple Cardiovascular: Regular Rate, Normal S1, Normal S2, No Murmurs Lungs: Clear to Auscultation, Mild crackle at the right lung base Abdomen: Normal Bowel Sounds, Soft, No Tenderness, No Hepatospenomegaly Assessment/Plan Assessment: 77-year-old gentleman who is a former smoker (40yr hx), past medical history significant for hypertension and hyperlipidemia, with a recent diagnosis of Enterobacter colacae, isolated bilateral cavitary multilobar pneumonia with possible lung abscess, treated aggresively with a 14 day antibiotic course( moxifloxacin), is admitted to the [facility] service with persistent respiratory symptoms in the context of chest x-ray radiological findings showing interval increments when compared to previous study of 09/27/2017. A repeated chest X-ray done on 10/26/2017 showed no further lesions or evidence of consoliation. His ESR which was up 105 at admission has been consistently trending down. Her ESR on 10/[address] Chest IMPRESSION: - Redemonstration of numerous masses and nodules throughout both lungs many of which demonstrate central cavitation. The largest of these lesions is seen in the right lower lobe and measures up to 9.3 cm and has not significantly changed compared with 10/03/2017. Many of the lesions have increased in size and at least one lesion is new (right upper lobe series 2 image 23). - Mild increase in size of small right pleural effusion. 1. Bilateral cavitary multilobar pneumonia - ID recommendation appreciated. The patient is on Meropenem 1g q8 h. We would consider transitioning him to oral antibiotics. -Sputum culture gram stain positive for Gram positive cocci and Gram negative rods. Final report demonstrated mixed kade. Repeat sputum cultures were negative. -Blood cultures are sterile -CT chest with contrast done. Demonstrates interval increase in the number and size of the lesions. Chest X-ray did not demonstrate any worsening of the lesions. Repeat Chest X-ray on Tuesday. -Diagnostic bronchoscopy was performed yesterday. Will follow up on report. -ESR: 75, WBC: 10.6 at this time. ESR has been constantly trending down. -Legionella AG negative -ANCA negative -ALONDRA: 13 2. History of Hypertension and Hyperlipidemia Hold Lisinopril Continue Atorvastatin DVT prophylaxis Code status: Full code Problem List: 1. Pneumonia 2. Hypertension 3. Cavitating mass of lung 4. SOB (shortness of breath) 5. Cough Pain Ratin Pain Location: none Pain Goal: Remain pain free Pain Plan: none Tomorrow's Labs & Rationales: cbc, bep, esr
[2017-10-27 08:30] LABS: ABSOLUTE BASOPHIL COUNT 0 /CUMM (0.0-0.2); ABSOLUTE EOSINOPHIL COUNT 0 /CUMM (0.0-0.7); ABSOLUTE GRANULOCYTE CT 10.6 /CUMM (1.4-6.5); ABSOLUTE LYMPH COUNT 0.6 /CUMM (1.2-3.4); ABSOLUTE MONOCYTE COUNT 1.2 /CUMM (0.10-0.60); BASOPHIL % 0.1 % (0.0-2.0); EOSINOPHIL % 0.4 % (0-5); GRANULOCYTE % 85.6 % (42.2-75.2); HEMATOCRIT 33.2 % (42-52); MEAN CORPUSCULAR HGB 27.8 PG (27.0-31.0); MEAN CORPUSCULAR HGB CONC 32.9 G/DL (33.0-37.0); MEAN CORPUSCULAR VOLUME 84.6 FL (80.0-94.0); MEAN PLATELET VOLUME 8.5 FL (7.4-10.4); PLATELET COUNT 592 /CUMM (130-400); RED BLOOD CELL CT 3.92 /CUMM (4.70-6.10); WHITE BLOOD CELL COUNT 12.4 /CUMM (4.8-10.8)
--- NOTE | 2017-10-27 11:08 | PN- Infect Dx ---
Subjective Subjective: T-max 100.2 (yesterday morning). He feels well with no further cough or shortness of breath. He is ambulating in the hallways without any complaints. Objective Last 24 Hrs of Vital Signs/I&O Vital Signs Date Time Temp Pulse Resp B/P B/P Pulse O2 O2 Flow FiO2 Mean Ox Delivery Rate 10/27 0651 97.8 71 18 115/64 95 10/26 2219 97.5 74 18 130/72 95 Room Air 10/26 1600 92 Room Air 10/26 1340 98.1 85 18 108/57 92 Room Air Intake & Output 10/27 1600 10/27 0800 10/27 0000 Intake Total 120 120 Output Total Balance 120 120 Intake, Oral 120 120 Patient 174 lb 172 lb Weight Weight Bed scale Measurement Method Physical Exam Other Physical Findings: He appears comfortable in no acute distress Lungs are clear Heart regular rhythm without murmur Extremities no cyanosis, clubbing or edema Results Last 24 Hours of Lab Results: Laboratory Tests 10/27 06 Chemistry Sodium (137 - 145 mmol/L) 138 Potassium (3.5 - 5.1 mmol/L) 5.0 Chloride (98 - 107 mmol/L) 103 Carbon Dioxide (22 - 30 mmol/L) 28 Anion Gap (5 - 16) 7 BUN (9 - 20 mg/dL) 24 H Creatinine (0.7 - 1.2 mg/dL) 0.6 L Estimated GFR (>60 ml/min) > 60 BUN/Creatinine Ratio (7 - 25 %) 40.0 H Hematology CBC w Diff NO MAN DIFF REQ WBC (4.8 - 10.8 /CUMM) 12.4 H RBC (4.70 - 6.10 /CUMM) 3.92 L Hgb (14.0 - 18.0 G/DL) 10.9 L Hct (42 - 52 %) 33.2 L MCV (80.0 - 94.0 FL) 84.6 MCH (27.0 - 31.0 PG) 27.8 MCHC (33.0 - 37.0 G/DL) 32.9 L RDW (11.5 - 14.5 %) 14.0 Plt Count (130 - 400 /CUMM) 592 H MPV (7.4 - 10.4 FL) 8.5 Gran % (42.2 - 75.2 %) 85.6 H Lymphocytes % (20.5 - 51.1 %) 4.4 L Monocytes % (1.7 - 9.3 %) 9.5 H Eosinophils % (0 - 5 %) 0.4 Basophils % (0.0 - 2.0 %) 0.1 Absolute Granulocytes (1.4 - 6.5 /CUMM) 10.6 H Absolute Lymphocytes (1.2 - 3.4 /CUMM) 0.6 L Absolute Monocytes (0.10 - 0.60 /CUMM) 1.2 H Absolute Eosinophils (0.0 - 0.7 /CUMM) 0 Absolute Basophils (0.0 - 0.2 /CUMM) 0 Last 24 Hours of Elder Results: Right lower lung cultures (including routine, AFB and fungal) all pending Recent Imaging Studies: Chest x-ray October 26 reveals numerous rounded pulmonary masses bilaterally, some of which demonstrate central cavitation, with no new or worsening airspace disease Assessment/Plan ID Impression: Clinically improved, with no further cough or complaints of dyspnea, on Meropenem, Day 8 of treatment for bilateral lung masses, presumed abscesses, status post navigational bronchoscopy with fine-needle aspirates yesterday, with evidence of obstruction of the right lower lobe bronchus, possibly secondary to the thick wall of the abscess. He did have a low-grade fever yesterday morning, of unclear significance, and his white blood cell count is increased today, possibly reactive in nature secondary to his recent procedure. Suggestion: 1. Follow-up cultures and biopsies from his recent procedure 2. Continue Meropenem pending above
[2017-10-27 14:17] VITALS: BP 106/50
--- NOTE | 2017-10-27 14:17 | PN- Pulmonary ---
Subjective HPI/Critical Care Issues: Improving Eating Walking around Objective Current Medications: Current Medications Sig/Fernando Start time Last Medication Dose Route Stop Time Status Admin Atorvastatin Calcium 40 MG DAILY 10/20 899 AC 10/27 PO 09 Enoxaparin Sodium 40 MG DAILY 10/19 899 AC 10/27 SC 0913 Meropenem 1 GM Q8H 10/21 2100 AC 10/27 IV 1323 Multivitamins 1 TAB DAILY 10/20 899 AC 10/27 Therapeutic PO 911 Vital Signs & I&O Last 24 Hrs of Vitals and I&O: Laboratory Tests 10/27 10/26 0605 0605 Chemistry Sodium (137 - 145 mmol/L) 138 133 L Potassium (3.5 - 5.1 mmol/L) 5.0 4.8 Chloride (98 - 107 mmol/L) 103 99 Carbon Dioxide (22 - 30 mmol/L) 28 26 Anion Gap (5 - 16) 7 9 BUN (9 - 20 mg/dL) 24 H 15 Creatinine (0.7 - 1.2 mg/dL) 0.6 L 0.6 L Estimated GFR (>60 ml/min) > 60 > 60 BUN/Creatinine Ratio (7 - 25 %) 40.0 H 25.0 Total Bilirubin (0.2 - 1.3 mg/dL) 0.4 Direct Bilirubin (< 0.4 mg/dL) 0.2 AST (17 - 59 U/L) 54 ALT (21 - 72 U/L) 72 Alkaline Phosphatase (< 127 U/L) 104 Total Protein (6.3 - 8.2 g/dL) 5.4 L Albumin (3.5 - 5.0 g/dL) 2.7 L Hematology CBC w Diff NO MAN DIFF REQ NO MAN DIFF REQ WBC (4.8 - 10.8 /CUMM) 12.4 H 10.6 RBC (4.70 - 6.10 /CUMM) 3.92 L 4.15 L Hgb (14.0 - 18.0 G/DL) 10.9 L 11.5 L Hct (42 - 52 %) 33.2 L 34.9 L MCV (80.0 - 94.0 FL) 84.6 84.1 MCH (27.0 - 31.0 PG) 27.8 27.8 MCHC (33.0 - 37.0 G/DL) 32.9 L 33.0 RDW (11.5 - 14.5 %) 14.0 14.3 Plt Count (130 - 400 /CUMM) 592 H 580 H MPV (7.4 - 10.4 FL) 8.5 8.3 Gran % (42.2 - 75.2 %) 85.6 H 82.1 H Lymphocytes % (20.5 - 51.1 %) 4.4 L 3.3 L Monocytes % (1.7 - 9.3 %) 9.5 H 12.6 H Eosinophils % (0 - 5 %) 0.4 1.9 Basophils % (0.0 - 2.0 %) 0.1 0.1 Absolute Granulocytes (1.4 - 6.5 /CUMM) 10.6 H 8.7 H Absolute Lymphocytes (1.2 - 3.4 /CUMM) 0.6 L 0.4 L Absolute Monocytes (0.10 - 0.60 /CUMM) 1.2 H 1.3 H Absolute Eosinophils (0.0 - 0.7 /CUMM) 0 0.2 Absolute Basophils (0.0 - 0.2 /CUMM) 0 0 Microbiology Date/Time Procedure - Status Source Growth 10/26 1102 Fungal Culture - RECD BODY FLUID 10/26 1102 AFB Culture with PCR Identification - RECD BODY FLUID 10/26 1102 AFB Smear Concentration - RECD BODY FLUID 10/26 1102 Body Fluid Culture - RES BODY FLUID 10/26 1102 Gram Stain - RES BODY FLUID 10/26 1102 Fungal Culture - RECD BODY FLUID 10/26 1102 AFB Culture with PCR Identification - RECD BODY FLUID 10/26 1102 AFB Smear Concentration - RECD BODY FLUID 10/26 1102 Body Fluid Culture - RES BODY FLUID 10/26 1102 Gram Stain - RES BODY FLUID Vital Signs Date Time Temp Pulse Resp B/P B/P Pulse O2 O2 Flow FiO2 Mean Ox Delivery Rate 10/27 0651 97.8 71 18 115/64 95 10/26 2219 97.5 74 18 130/72 95 Room Air 10/26 1600 92 Room Air Intake & Output 10/27 1600 10/27 0800 10/27 0000 Intake Total 120 120 Output Total Balance 120 120 Intake, Oral 120 120 Patient 174 lb 172 lb Weight Weight Bed scale Measurement Method Impression/Plan Impression/Plan Impression/Plan: Sheryl eomi Lungs are clear Heart regular rhythm with no murmur Extremities no cyanosis, clubbing or edema This is a gentleman with HTN and Hyperlipedemia with 40 pack yrs smoker quit many rs ago with recent travel to [facility] has one month history of cough and yellow sputum with poor dention, 30 pound wt loss now has * large 9 cm cavitary lung abscess with multiple lung massess (prior bx nil sig) , despite being on aggressive antibiotic outpatient by mouth therapy with moxifloxacin. Now on IV meropenam (had enterobacter before). Other pathology like inflammatory diseases including polyangiitis versus sarcoidosis etc. is unlikely. Lung biopsy done showed significant inflammation but no evidence suggestive of vasculitis are any granuloma. Patient is HIV negative. Low risk for MTB. Has grown Enterobacter which needs to be treated again with anaerobic coverage. S/p rpt bx. S/p bronch with bal - no sig purulence noted * Wt loss recently, prior smoking * HTN and HLD PLAN Intravenous meropenem Cont to monitor on abx, will consider changing to po in 24-48 hrs Await bx RPt cxr on tuesday, with esr Hold lisinopril for now and observe BP WIll follow
[2017-10-27 22:10] VITALS: BP 130/80
[2017-10-27 23:10] VITALS: BP 110/60
[2017-10-28 07:00] VITALS: BP 110/70
--- NOTE | 2017-10-28 07:17 | PN- Housestaff ---
Subjective Follow-up For: Multicavitatory pneumonia Subjective: Patient was seen and examined at bedside. He reports feeling of some warmth and some shaking in the evening yesterday. He does not report change in his cough or sputum production. No nausea, vomiting,, diarrhea or constipation. Review of Systems Constitutional: Reports: see HPI. Objective Last 24 Hrs of Vital Signs/I&O Vital Signs Date Time Temp Pulse Resp B/P B/P Pulse O2 O2 Flow FiO2 Mean Ox Delivery Rate 10/27 2310 98.9 92 20 110/60 93 Room Air 10/27 2210 99.8 81 20 130/80 97 Room Air 10/27 1600 97 Room Air 10/27 1417 98.2 86 18 106/50 97 Room Air Intake & Output 10/28 0800 10/28 0000 10/27 1600 Intake Total 120 20 500 Output Total Balance 120 20 500 Intake, IV 20 Intake, Oral 120 500 Patient 174 lb Weight Weight Bed scale Measurement Method Physical Exam General Appearance: Alert, Oriented X3, Cooperative, No Acute Distress Skin Temp/Moisture Exam: Warm/Dry Neck: Supple Cardiovascular: Regular Rate, Normal S1, Normal S2, No Murmurs Lungs: Clear to Auscultation Abdomen: Normal Bowel Sounds, Soft, No Tenderness, No Hepatospenomegaly Extremities: No Edema, Normal Pulses Assessment/Plan Assessment: 77-year-old gentleman who is a former smoker (40yr hx), past medical history significant for hypertension and hyperlipidemia, with a recent diagnosis of Enterobacter colacae, isolated bilateral cavitary multilobar pneumonia with possible lung abscess, treated aggresively with a 14 day antibiotic course( moxifloxacin), is admitted to the [facility] service with persistent respiratory symptoms in the context of chest x-ray radiological findings showing interval increments when compared to previous study of 09/27/2017. A repeated chest X-ray done on 10/26/2017 showed no further lesions or evidence of consoliation. His ESR which was up 105 at admission has been consistently trending down. Her ESR on 10/[address] Chest IMPRESSION: - Redemonstration of numerous masses and nodules throughout both lungs many of which demonstrate central cavitation. The largest of these lesions is seen in the right lower lobe and measures up to 9.3 cm and has not significantly changed compared with 10/03/2017. Many of the lesions have increased in size and at least one lesion is new (right upper lobe series 2 image 23). - Mild increase in size of small right pleural effusion. 1. Bilateral cavitary multilobar pneumonia - ID recommendation appreciated. The patient is on Meropenem 1g q8 h. We would consider transitioning him to oral antibiotics. -Sputum culture gram stain positive for Gram positive cocci and Gram negative rods. Final report demonstrated mixed kade. Repeat sputum cultures were negative. -Blood cultures are sterile -CT chest with contrast done. Demonstrates interval increase in the number and size of the lesions. Chest X-ray did not demonstrate any worsening of the lesions. Repeat Chest X-ray today. Would follow up on report. -Diagnostic bronchoscopy was performed yesterday. Will follow up on report. -ESR: 75, WBC: 10.6 at this time. ESR has been constantly trending down. -Legionella AG negative -ANCA negative -ALONDRA: 13 -ESR: 87 today -Patient has had persistent thrombocytosis. His Hgb today was 10.9 today. 2. History of Hypertension and Hyperlipidemia Hold Lisinopril Continue Atorvastatin DVT prophylaxis Code status: Full code Problem List: 1. Pneumonia 2. Cavitating mass of lung 3. SOB (shortness of breath) 4. Cough Pain Ratin Pain Location: none Pain Goal: Remain pain free Pain Plan: none Tomorrow's Labs & Rationales: cbc and bep
[2017-10-28 07:58] LABS: ABSOLUTE BASOPHIL COUNT 0.1 /CUMM (0.0-0.2); ABSOLUTE EOSINOPHIL COUNT 0.3 /CUMM (0.0-0.7); ABSOLUTE GRANULOCYTE CT 8.3 /CUMM (1.4-6.5); ABSOLUTE LYMPH COUNT 0.5 /CUMM (1.2-3.4); BASOPHIL % 0.7 % (0.0-2.0); EOSINOPHIL % 3.2 % (0-5); GRANULOCYTE % 81.5 % (42.2-75.2); HEMATOCRIT 32.8 % (42-52); MEAN CORPUSCULAR HGB 27.9 PG (27.0-31.0); MEAN CORPUSCULAR HGB CONC 33.2 G/DL (33.0-37.0); MEAN PLATELET VOLUME 8.3 FL (7.4-10.4); PLATELET COUNT 605 /CUMM (130-400); RBC DISTRIBUTION WIDTH 14.8 % (11.5-14.5); WHITE BLOOD CELL COUNT 10.1 /CUMM (4.8-10.8)
--- NOTE | 2017-10-28 12:03 | PN- Infect Dx ---
Subjective Subjective: Afebrile. He reports feeling warm, then cold, last evening but denies any shaking chills. He feels improved today, with no shortness of breath and reports just an occasional cough, productive of brown sputum. Objective Last 24 Hrs of Vital Signs/I&O Vital Signs Date Time Temp Pulse Resp B/P B/P Pulse O2 O2 Flow FiO2 Mean Ox Delivery Rate 10/28 0700 98.0 89 20 110/70 93 10/27 2310 98.9 92 20 110/60 93 Room Air 10/27 2210 99.8 81 20 130/80 97 Room Air 10/27 1600 97 Room Air 10/27 1417 98.2 86 18 106/50 97 Room Air Intake & Output 10/28 1600 10/28 0800 10/28 0000 Intake Total 120 20 Output Total Balance 120 20 Intake, IV 20 Intake, Oral 120 Patient 174 lb Weight Weight Bed scale Measurement Method Physical Exam Other Physical Findings: He appears comfortable in no acute distress Lungs scattered crackles on the right Heart regular rhythm with no murmur Extremities no cyanosis, clubbing or edema Results Last 24 Hours of Lab Results: Laboratory Tests 10/28 0603 Chemistry Sodium (137 - 145 mmol/L) 134 L Potassium (3.5 - 5.1 mmol/L) 4.7 Chloride (98 - 107 mmol/L) 101 Carbon Dioxide (22 - 30 mmol/L) 27 Anion Gap (5 - 16) 6 BUN (9 - 20 mg/dL) 21 H Creatinine (0.7 - 1.2 mg/dL) 0.6 L Estimated GFR (>60 ml/min) > 60 BUN/Creatinine Ratio (7 - 25 %) 35.0 H Hematology CBC w Diff NO MAN DIFF REQ WBC (4.8 - 10.8 /CUMM) 10.1 RBC (4.70 - 6.10 /CUMM) 3.90 L Hgb (14.0 - 18.0 G/DL) 10.9 L Hct (42 - 52 %) 32.8 L MCV (80.0 - 94.0 FL) 84.0 MCH (27.0 - 31.0 PG) 27.9 MCHC (33.0 - 37.0 G/DL) 33.2 RDW (11.5 - 14.5 %) 14.8 H Plt Count (130 - 400 /CUMM) 605 H MPV (7.4 - 10.4 FL) 8.3 Gran % (42.2 - 75.2 %) 81.5 H Lymphocytes % (20.5 - 51.1 %) 5.0 L Monocytes % (1.7 - 9.3 %) 9.6 H Eosinophils % (0 - 5 %) 3.2 Basophils % (0.0 - 2.0 %) 0.7 Absolute Granulocytes (1.4 - 6.5 /CUMM) 8.3 H Absolute Lymphocytes (1.2 - 3.4 /CUMM) 0.5 L Absolute Monocytes (0.10 - 0.60 /CUMM) 1.0 H Absolute Eosinophils (0.0 - 0.7 /CUMM) 0.3 Absolute Basophils (0.0 - 0.2 /CUMM) 0.1 ESR Westergren (0 - 10 MM) 87 H Last 24 Hours of Elder Results: Right lower lung fluid from the bronchoscopy October 26 negative after 2 days; AFB smears negative 2; AFB and fungal cultures pending Assessment/Plan ID Impression: Clinically improved, with minimal cough and no further dyspnea, on Meropenem, Day 9 of treatment for bilateral lung masses/nodules, some of which are cavitary and presumed to be abscesses, with the treatment directed against the Enterobacter isolated on his previous hospitalization as well as anaerobes, which are presumably involved. He is status post navigational bronchoscopy with fine-needle aspirates 2 days ago, with the cultures from the bronchoscopy remaining negative, and with his temperatures and white blood cell count normal. There was evidence of obstruction of the right lower lobe bronchus, felt to be secondary to the thick wall of the abscess, and biopsies from this area, as well as from his CT-guided biopsy 1 week ago, are pending. His ESR had been decreasing, but is elevated today, of unclear significance. Suggestion: 1. Follow-up final cultures and biopsies from his recent procedures 2. Continue Meropenem Dr. Bowman is covering over the weekend
--- NOTE | 2017-10-28 12:55 | PN- Pulmonary ---
Subjective HPI/Critical Care Issues: Afebrile. He reports feeling warm, then cold, last evening but denies any shaking chills. He feels improved today, with no shortness of breath and reports just an occasional cough, productive of brown sputum. Objective Current Medications: Current Medications Sig/Fernando Start time Last Medication Dose Route Stop Time Status Admin Acetaminophen 500 MG ONCE ONE 10/28 929 DC 10/28 PO 10/28 09 0842 Atorvastatin Calcium 40 MG DAILY 10/20 899 AC 10/28 PO 0842 Docusate Sodium 100 MG DAILY 10/28 899 AC PO Enoxaparin Sodium 40 MG DAILY 10/19 899 AC 10/28 SC 0843 Meropenem 1 GM Q8H 10/21 2100 AC 10/28 IV 1205 Multivitamins 1 TAB DAILY 10/20 899 AC 10/28 Therapeutic PO 0842 Polyethylene Glycol 17 GM DAILY 10/28 899 AC PO Senna/Docusate Sodium 2 TAB DAILY 10/28 899 AC PO Vital Signs & I&O Last 24 Hrs of Vitals and I&O: Vital Signs Date Time Temp Pulse Resp B/P B/P Pulse O2 O2 Flow FiO2 Mean Ox Delivery Rate 10/28 07 98.0 89 20 110/70 93 10/27 2310 98.9 92 20 110/60 93 Room Air 10/27 2210 99.8 81 20 130/80 97 Room Air 10/27 1600 97 Room Air 10/27 1417 98.2 86 18 106/50 97 Room Air Intake & Output 10/28 1600 10/28 0800 10/28 0000 Intake Total 120 20 Output Total Balance 120 20 Intake, IV 20 Intake, Oral 120 Patient 174 lb Weight Weight Bed scale Measurement Method Laboratory Tests 10/28 10/27 0603 0605 Chemistry Sodium (137 - 145 mmol/L) 134 L 138 Potassium (3.5 - 5.1 mmol/L) 4.7 5.0 Chloride (98 - 107 mmol/L) 101 103 Carbon Dioxide (22 - 30 mmol/L) 27 28 Anion Gap (5 - 16) 6 7 BUN (9 - 20 mg/dL) 21 H 24 H Creatinine (0.7 - 1.2 mg/dL) 0.6 L 0.6 L Estimated GFR (>60 ml/min) > 60 > 60 BUN/Creatinine Ratio (7 - 25 %) 35.0 H 40.0 H Hematology CBC w Diff NO MAN DIFF REQ NO MAN DIFF REQ WBC (4.8 - 10.8 /CUMM) 10.1 12.4 H RBC (4.70 - 6.10 /CUMM) 3.90 L 3.92 L Hgb (14.0 - 18.0 G/DL) 10.9 L 10.9 L Hct (42 - 52 %) 32.8 L 33.2 L MCV (80.0 - 94.0 FL) 84.0 84.6 MCH (27.0 - 31.0 PG) 27.9 27.8 MCHC (33.0 - 37.0 G/DL) 33.2 32.9 L RDW (11.5 - 14.5 %) 14.8 H 14.0 Plt Count (130 - 400 /CUMM) 605 H 592 H MPV (7.4 - 10.4 FL) 8.3 8.5 Gran % (42.2 - 75.2 %) 81.5 H 85.6 H Lymphocytes % (20.5 - 51.1 %) 5.0 L 4.4 L Monocytes % (1.7 - 9.3 %) 9.6 H 9.5 H Eosinophils % (0 - 5 %) 3.2 0.4 Basophils % (0.0 - 2.0 %) 0.7 0.1 Absolute Granulocytes (1.4 - 6.5 /CUMM) 8.3 H 10.6 H Absolute Lymphocytes (1.2 - 3.4 /CUMM) 0.5 L 0.6 L Absolute Monocytes (0.10 - 0.60 /CUMM) 1.0 H 1.2 H Absolute Eosinophils (0.0 - 0.7 /CUMM) 0.3 0 Absolute Basophils (0.0 - 0.2 /CUMM) 0.1 0 ESR Westergren (0 - 10 MM) 87 H Microbiology Date/Time Procedure - Status Source Growth 10/26 1101 Fungal Culture - RECD BODY FLUID 10/26 1101 AFB Culture with PCR Identification - RES BODY FLUID 10/26 1101 AFB Smear Concentration - RES BODY FLUID 10/26 1102 Body Fluid Culture - RES BODY FLUID 10/26 1102 Gram Stain - RES BODY FLUID 10/26 1101 Fungal Culture - RECD BODY FLUID 09/19 1102 AFB Culture with PCR Identification - RES BODY FLUID 10/26 1102 AFB Smear Concentration - RES BODY FLUID 10/26 1102 Body Fluid Culture - RES BODY FLUID 10/26 1102 Gram Stain - RES BODY FLUID Impression/Plan Impression/Plan Impression/Plan: Sheryl eomi Lungs are clear Heart regular rhythm with no murmur Extremities no cyanosis, clubbing or edema This is a gentleman with HTN and Hyperlipedemia with 40 pack yrs smoker quit many rs ago with recent travel to [facility] has one month history of cough and yellow sputum with poor dention, 30 pound wt loss now has * large 9 cm cavitary lung abscess with multiple lung massess (prior bx nil sig) , despite being on aggressive antibiotic outpatient by mouth therapy with moxifloxacin. Now on IV meropenam (had enterobacter before). Other pathology like inflammatory diseases including polyangiitis versus sarcoidosis etc. is unlikely. Lung biopsy done showed significant inflammation but no evidence suggestive of vasculitis are any granuloma. Patient is HIV negative. Low risk for MTB. Has grown Enterobacter which needs to be treated again with anaerobic coverage. S/p rpt bx. S/p bronch with bal - no sig purulence noted * Wt loss recently, prior smoking * HTN and HLD PLAN Intravenous meropenem till tuesday and will reeval Await bx RPt cxr Hold lisinopril for now and observe BP WIll follow
[2017-10-28 14:31] VITALS: BP 109/66
--- NOTE | 2017-10-28 14:41 | RADIOLOGY REPORT ---
EXAMINATION: XR CHEST CLINICAL INFORMATION: 77-year-old male with multiple lung masses. Status post bronchoscopy. COMPARISON: CT of the chest done on 10/20/2017 and most recent prior chest radiograph done on 10/26/2017. TECHNIQUE: 2 views of the chest were obtained. FINDINGS: Persistent stable multiple bilateral lung masses are noted predominantly at mid to lower lung goodson without any significant change. There is no evidence of any pneumomediastinum or pneumothorax present. There is no pleural effusion present. The cardiomediastinal silhouette is within normal limit. Overall, no significant change. IMPRESSION: 1. No radiographic evidence of any pneumomediastinum or pneumothorax. 2. Stable multiple bilateral lung masses, unchanged since 10/26/2017.
[2017-10-28 22:51] VITALS: BP 127/72
[2017-10-29 06:51] VITALS: BP 113/71
[2017-10-29 08:38] LABS: ABSOLUTE BASOPHIL COUNT 0 /CUMM (0.0-0.2); ABSOLUTE EOSINOPHIL COUNT 0.1 /CUMM (0.0-0.7); ABSOLUTE GRANULOCYTE CT 8.7 /CUMM (1.4-6.5); ABSOLUTE LYMPH COUNT 0.5 /CUMM (1.2-3.4); ABSOLUTE MONOCYTE COUNT 1.2 /CUMM (0.10-0.60); BASOPHIL % 0.2 % (0.0-2.0); EOSINOPHIL % 0.9 % (0-5); GRANULOCYTE % 82.8 % (42.2-75.2); HEMATOCRIT 32.7 % (42-52); MEAN CORPUSCULAR HGB 27.8 PG (27.0-31.0); MEAN CORPUSCULAR HGB CONC 33.3 G/DL (33.0-37.0); MEAN CORPUSCULAR VOLUME 83.4 FL (80.0-94.0); MEAN PLATELET VOLUME 8.5 FL (7.4-10.4); PLATELET COUNT 527 /CUMM (130-400); RBC DISTRIBUTION WIDTH 14.3 % (11.5-14.5); RED BLOOD CELL CT 3.92 /CUMM (4.70-6.10); WHITE BLOOD CELL COUNT 10.4 /CUMM (4.8-10.8)
--- NOTE | 2017-10-29 09:17 | PN- Pulmonary ---
Martina Foley MD 10/29/17 0912: Subjective HPI/Critical Care Issues: The patient is awake and alert, comfortable on room air. He is anxious and wants to go home as soon as possible. He denies any increased shortness of breath. No report of hemoptysis. He denies any chest pain or palpatations. Objective Current Medications: Current Medications Sig/Fernando Start time Last Medication Dose Route Stop Time Status Admin Acetaminophen 500 MG ONCE ONE 10/28 929 DC 10/28 PO 10/28 930 0842 Atorvastatin Calcium 40 MG DAILY 10/20 899 AC 10/29 PO 809 Docusate Sodium 100 MG DAILY 10/28 899 AC PO Enoxaparin Sodium 40 MG DAILY 10/19 899 AC 10/29 SC 0810 Meropenem 1 GM Q8H 10/21 2100 AC 10/29 IV 0553 Multivitamins 1 TAB DAILY 10/20 899 AC 10/29 Therapeutic PO 0810 Polyethylene Glycol 17 GM DAILY 10/28 899 AC PO Senna/Docusate Sodium 2 TAB DAILY 10/28 899 AC PO Vital Signs & I&O Last 24 Hrs of Vitals and I&O: Vital Signs Date Time Temp Pulse Resp B/P B/P Pulse O2 O2 Flow FiO2 Mean Ox Delivery Rate 10/29 0800 96 Room Air 10/29 0651 98.4 88 20 113/71 93 Room Air 10/29 0000 Room Air 10/28 2251 99.3 84 18 127/72 95 Room Air 10/28 1600 Room Air 10/28 1431 97.9 80 18 109/66 98 Room Air Intake & Output 10/29 1600 10/29 0800 10/29 0000 Intake Total 120 420 Output Total 350 Balance 120 70 Intake, IV 20 Intake, Oral 120 400 Number 0 Bowel Movements Output, Urine 350 Patient 178 lb Weight Weight Bed scale Measurement Method Exam General Appearance: well developed/nourished, no apparent distress, awake, anxious, comfortable Head: atraumatic Neck: supple Respiratory: few faint scattered ronchi Cardiovascular: irregularities heard Abdomen: benign Extremities: no edema Skin: intact, normal color, warm/dry Results Last 24 Hrs of Lab Results: Laboratory Tests 10/29/17 0607: Anion Gap 9, Estimated GFR > 60, BUN/Creatinine Ratio 28.3 H, CBC w Diff Pending, WBC Pending, RBC Pending, Hgb Pending, Hct Pending, MCV Pending, MCH Pending, MCHC Pending, RDW Pending, Plt Count Pending, MPV Pending Diagnostic Data CXR Findings: 1. No radiographic evidence of any pneumomediastinum or pneumothorax. 2. Stable multiple bilateral lung masses, unchanged since 10/26/2017. Impression/Plan Impression/Plan Impression/Plan: 1. Cavitary pneumonia, 9 cm cavitary lung abscess. 2. Bilateral lung masses, rule out etiology. 3. Irregular heart beat, r/o ectopy/afib. 4. HTN. 5. HLD. Recommendations: * Check an EKG now - re: irregular heart rate. * Transfer to telemetry if any issues. * Continue meropenem until Tuesday - then re-evaluate. * Follow up ID input. * Monitor oxygen saturations. * DVT prophylaxis at all times.
--- NOTE | 2017-10-29 09:36 | PN- Housestaff ---
Subjective Follow-up For: Multi-cavitary tree pneumonia Subjective: Patient seen and examined at bedside. He is angry and he said I want to go to place. He said I need to be informed on time regarding each blood work in each investigation. He denies fever, chest pain, abdominal pain, diarrhea, constipation, burning micturition. Review of Systems Constitutional: Reports: see HPI. Objective Last 24 Hrs of Vital Signs/I&O Vital Signs Date Time Temp Pulse Resp B/P B/P Pulse O2 O2 Flow FiO2 Mean Ox Delivery Rate 10/29 0800 96 Room Air 10/29 0651 98.4 88 20 113/71 93 Room Air 10/29 0000 Room Air 10/28 2251 99.3 84 18 127/72 95 Room Air 10/28 1600 Room Air Intake & Output 10/29 1600 10/29 0800 10/29 0000 Intake Total 120 420 Output Total 350 Balance 120 70 Intake, IV 20 Intake, Oral 120 400 Number 0 Bowel Movements Output, Urine 350 Patient 178 lb Weight Weight Bed scale Measurement Method Physical Exam General Appearance: Alert, Oriented X3, Cooperative, Mild Distress Cardiovascular: Normal S1, Normal S2 Lungs: Normal Air Movement, Crepts on right side of chest Abdomen: Normal Bowel Sounds, Soft, No Tenderness Neurological: Normal Speech, Strength at 5/5 X4 Ext, Normal Tone, Sensation Intact Extremities: No Cyanosis, No Edema, Normal Pulses, No Tenderness/Swelling Assessment/Plan Assessment: 77-year-old gentleman who is a former smoker (40yr hx), past medical history significant for hypertension and hyperlipidemia, with a recent diagnosis of Enterobacter colacae, isolated bilateral cavitary multilobar pneumonia with possible lung abscess, treated aggresively with a 14 day antibiotic course( moxifloxacin), is admitted to the [facility] with persistent respiratory symptoms in the context of chest x-ray radiological findings showing interval increments when compared to previous study of 09/27/2017. A repeated chest X-ray done on 10/26/2017 showed no further lesions or evidence of consoliation. His ESR which was up 105 at admission has been consistently trending down. Her ESR on 10/[address] Chest IMPRESSION: - Redemonstration of numerous masses and nodules throughout both lungs many of which demonstrate central cavitation. The largest of these lesions is seen in the right lower lobe and measures up to 9.3 cm and has not significantly changed compared with 10/03/2017. Many of the lesions have increased in size and at least one lesion is new (right upper lobe series 2 image 23). - Mild increase in size of small right pleural effusion. Problems list: * Bilateral cavitary multilobular pneumonia * Multiple lung masses * History of hypertension and hyperlipidemia 1. Bilateral cavitary multilobar pneumonia: -Patient had cough shortness of breath - CAT scan and chest x-ray showing bilateral cavitary multilobar pneumonia -ID recommendation appreciated, meropenem will be continued 1 g every 8 hour till Tuesday -On Tuesday will start him on oral antibiotic - pleural fluid cultures negative for Mycobacterium tuberculosis -Diagnostic bronchoscopy was performed 2 days ago. Will follow up on report. -Labs are trending down History of Hypertension and Hyperlipidemia: -Lisinopril on hold and he is taking atorvastatin Bilateral multiple lung masses: = We will follow on serial CAT scan = We will follow pulmonology recommendation for further management = Pulmonology recommendation appreciated today = Recommendation followed = Martina Foley MD recommended to * Transfer to telemetry if any issues * If any changes in EKG we can transfer patient to telemetry. DVT prophylaxis all-time Code status: Full code Problem List: 1. Cavitating mass of lung 2. Pneumonia 3. Cough 4. SOB (shortness of breath) Pain Ratin Pain Location: No pain Pain Goal: Remain pain free Pain Plan: Pain management Tomorrow's Labs & Rationales: cbc bep
--- NOTE | 2017-10-29 14:16 | PN- Infect Dx ---
Subjective Subjective: This is a 77-year-old man, ex-smoker, with a history of hypertension, hospitalized 2 weeks prior to admission with a 4 week history of a productive cough, shortness of breath with exertion and anorexia with a 30 pound weight loss, with a CT of the chest revealing bilateral pulmonary masses, with cavitation in the largest one, found to be afebrile with a normal white blood cell count, with a sputum culture positive for Enterobacter cloacae and a CT guided lung biopsy revealing dense fibrosis with chronic inflammation, with all cultures and stains negative, DAX negative, ANCA negative and an indeterminate QuantiFERON, discharged on Moxifloxacin, presenting to the emergency room after a follow-up chest x-ray revealed an increase in the multiple bilateral pulmonary nodules and masses, with a persistent productive cough and shortness of breath with exertion, not significantly improved over the past 2 weeks, with no associated fevers, chills or sweats. He is status post navigational bronchoscopy with fine-needle aspirates 3 days ago, with the cultures from the bronchoscopy remaining negative, and with his temperatures and white blood cell count normal. There was evidence of obstruction of the right lower lobe bronchus, felt to be secondary to the thick wall of the abscess, and biopsies from this area, as well as from his CT-guided biopsy 1 week ago, are pending. Review of Systems Comments: 12 point review systems without any new symptoms Objective Last 24 Hrs of Vital Signs/I&O Vital Signs Date Time Temp Pulse Resp B/P B/P Pulse O2 O2 Flow FiO2 Mean Ox Delivery Rate 10/29 0800 96 Room Air 10/29 0651 98.4 88 20 113/71 93 Room Air 10/29 0000 Room Air 10/28 2251 99.3 84 18 127/72 95 Room Air 10/28 1600 Room Air 10/28 1431 97.9 80 18 109/66 98 Room Air Intake & Output 10/29 1600 10/29 0800 10/29 0000 Intake Total 120 420 Output Total 350 Balance 120 70 Intake, IV 20 Intake, Oral 120 400 Number 0 Bowel Movements Output, Urine 350 Patient 178 lb Weight Weight Bed scale Measurement Method Physical Exam Other Physical Findings: Awake alert oriented 3 Dry persistent cough Pupils equal and reactive to light and accommodation equal ocular motion Neck supple no JVD no lymphadenopathy Lungs with scattered crackles more prominent on the right Heart is an irregular rhythm Abdomen is soft nontender nondistended No neurologic deficits noted Results Last 24 Hours of Lab Results: Laboratory Tests 10/29 0607 Chemistry Sodium (137 - 145 mmol/L) 135 L Potassium (3.5 - 5.1 mmol/L) 4.6 Chloride (98 - 107 mmol/L) 101 Carbon Dioxide (22 - 30 mmol/L) 25 Anion Gap (5 - 16) 9 BUN (9 - 20 mg/dL) 17 Creatinine (0.7 - 1.2 mg/dL) 0.6 L Estimated GFR (>60 ml/min) > 60 BUN/Creatinine Ratio (7 - 25 %) 28.3 H Hematology CBC w Diff NO MAN DIFF REQ WBC (4.8 - 10.8 /CUMM) 10.4 RBC (4.70 - 6.10 /CUMM) 3.92 L Hgb (14.0 - 18.0 G/DL) 10.9 L Hct (42 - 52 %) 32.7 L MCV (80.0 - 94.0 FL) 83.4 MCH (27.0 - 31.0 PG) 27.8 MCHC (33.0 - 37.0 G/DL) 33.3 RDW (11.5 - 14.5 %) 14.3 Plt Count (130 - 400 /CUMM) 527 H MPV (7.4 - 10.4 FL) 8.5 Gran % (42.2 - 75.2 %) 82.8 H Lymphocytes % (20.5 - 51.1 %) 4.4 L Monocytes % (1.7 - 9.3 %) 11.7 H Eosinophils % (0 - 5 %) 0.9 Basophils % (0.0 - 2.0 %) 0.2 Absolute Granulocytes (1.4 - 6.5 /CUMM) 8.7 H Absolute Lymphocytes (1.2 - 3.4 /CUMM) 0.5 L Absolute Monocytes (0.10 - 0.60 /CUMM) 1.2 H Absolute Eosinophils (0.0 - 0.7 /CUMM) 0.1 Absolute Basophils (0.0 - 0.2 /CUMM) 0 Last 24 Hours of Elder Results: none positive Assessment/Plan ID Impression: This patient is a 77-year-old white male with cavitary lesions in his lung. Clinically improved, with minimal cough and no further dyspnea, on Meropenem, Day 10 of treatment for bilateral lung masses/nodules, some of which are cavitary and presumed to be abscesses, with the treatment directed against the Enterobacter isolated on his previous hospitalization as well as anaerobes, which are presumably involved. Suggestion: 1. Follow-up final cultures and biopsies from his recent procedures 2. Continue Meropenem
[2017-10-29 15:06] VITALS: BP 117/56
--- NOTE | 2017-10-29 16:27 | PN- Att Addend ---
Attending Addendum Attending Brief Note Covering attending note: Patient states he feels a little better but still not right, ambulating a little Vital signs stable temp max 99 3. No major changes on physical examination. Appreciate infectious diseases input and recommendations. Will continue observation and treatment with the antibiotic ordered. Intake & Output 10/29 1600 10/29 0400 10/28 1600 10/28 0400 10/27 0400 Intake Total 720 420 900 20 620 120 Output Total 350 450 Balance 720 70 450 20 620 120 Intake, IV 20 30 20 Intake, Oral 720 400 870 620 120 Number 1 0 1 Bowel Movements Output, Urine 350 450 Patient 178 lb 174 lb 174 lb 172 lb Weight Weight Bed scale Bed scale Bed scale Measurement Method Current Medications Sig/Fernando Start time Last Medication Dose Route Stop Time Status Admin Atorvastatin Calcium 40 MG DAILY 10/20 899 AC 10/29 PO 0810 Docusate Sodium 100 MG DAILY 10/28 899 AC PO Enoxaparin Sodium 40 MG DAILY 10/19 899 AC 10/29 SC 0810 Meropenem 1 GM Q8H 10/21 2100 AC 10/29 IV 1308 Multivitamins 1 TAB DAILY 10/20 899 AC 10/29 Therapeutic PO 0810 Polyethylene Glycol 17 GM DAILY 10/28 899 AC PO Senna/Docusate Sodium 2 TAB DAILY 10/28 09 AC PO Laboratory Tests 10/29/17 0607: Anion Gap 9, Estimated GFR > 60, BUN/Creatinine Ratio 28.3 H, CBC w Diff NO MAN DIFF REQ, RBC 3.92 L, MCV 83.4, MCH 27.8, MCHC 33.3, RDW 14.3, MPV 8.5, Gran % 82.8 H, Lymphocytes % 4.4 L, Monocytes % 11.7 H, Eosinophils % 0.9, Basophils % 0.2, Absolute Granulocytes 8.7 H, Absolute Lymphocytes 0.5 L, Absolute Monocytes 1.2 H, Absolute Eosinophils 0.1, Absolute Basophils 0 10/28/17 0603: Anion Gap 6, Estimated GFR > 60, BUN/Creatinine Ratio 35.0 H, CBC w Diff NO MAN DIFF REQ, RBC 3.90 L, MCV 84.0, MCH 27.9, MCHC 33.2, RDW 14.8 H, MPV 8.3, Gran % 81.5 H, Lymphocytes % 5.0 L, Monocytes % 9.6 H, Eosinophils % 3.2, Basophils % 0.7, Absolute Granulocytes 8.3 H, Absolute Lymphocytes 0.5 L, Absolute Monocytes 1.0 H, Absolute Eosinophils 0.3, Absolute Basophils 0.1, ESR Westergren 87 H 10/27/17 0605: Anion Gap 7, Estimated GFR > 60, BUN/Creatinine Ratio 40.0 H, CBC w Diff NO MAN DIFF REQ, RBC 3.92 L, MCV 84.6, MCH 27.8, MCHC 32.9 L, RDW 14.0, MPV 8.5, Gran % 85.6 H, Lymphocytes % 4.4 L, Monocytes % 9.5 H, Eosinophils % 0.4, Basophils % 0.1, Absolute Granulocytes 10.6 H, Absolute Lymphocytes 0.6 L, Absolute Monocytes 1.2 H, Absolute Eosinophils 0, Absolute Basophils 0 Vital Signs Date Time Temp Pulse Resp B/P B/P Pulse O2 O2 Flow FiO2 Mean Ox Delivery Rate 10/29 1506 98.1 82 18 117/56 97 Room Air 10/29 0800 96 Room Air 10/29 0651 98.4 88 20 113/71 93 Room Air 10/29 0000 Room Air 10/28 2251 99.3 84 18 127/72 95 Room Air
[2017-10-29 22:00] VITALS: BP 108/67
[2017-10-30 04:18] VITALS: BP 108/60
--- NOTE | 2017-10-30 08:11 | PN- Housestaff ---
Subjective Follow-up For: Cavitary treat pneumonia, lung mass Subjective: Patient seen and examined at bedside. He is continuously angry. He denies any fever, chills, chest pain, abdominal pain, diarrhea, constipation, burning micturition. Review of Systems Constitutional: Reports: see HPI. Objective Last 24 Hrs of Vital Signs/I&O Vital Signs Date Time Temp Pulse Resp B/P B/P Pulse O2 O2 Flow FiO2 Mean Ox Delivery Rate 10/30 1416 98.3 86 18 116/55 95 Room Air 10/30 0418 98.7 88 18 108/60 93 Room Air 10/30 0000 Room Air 10/29 2200 98.4 90 18 108/67 95 Room Air Intake & Output 10/30 1600 10/30 0800 10/30 0000 Intake Total Output Total Balance Patient 171 lb Weight Physical Exam General Appearance: Alert, Oriented X3, Cooperative, No Acute Distress Lungs: Clear to Auscultation, Normal Air Movement Abdomen: Normal Bowel Sounds, Soft, No Tenderness, No Hepatospenomegaly, No Masses Extremities: No Clubbing, No Cyanosis, No Edema, Normal Pulses, No Tenderness/ Swelling Assessment/Plan Assessment: 77-year-old gentleman who is a former smoker (40yr hx), past medical history significant for hypertension and hyperlipidemia, with a recent diagnosis of Enterobacter colacae, isolated bilateral cavitary multilobar pneumonia with possible lung abscess, treated aggresively with a 14 day antibiotic course( moxifloxacin), is admitted to the [facility] service with persistent respiratory symptoms in the context of chest x-ray radiological findings showing interval increments when compared to previous study of 09/27/2017. A repeated chest X-ray done on 10/26/2017 showed no further lesions or evidence of consoliation. His ESR which was up 105 at admission has been consistently trending down. Her ESR on 10/[address] Chest IMPRESSION: - Redemonstration of numerous masses and nodules throughout both lungs many of which demonstrate central cavitation. The largest of these lesions is seen in the right lower lobe and measures up to 9.3 cm and has not significantly changed compared with 10/03/2017. Many of the lesions have increased in size and at least one lesion is new (right upper lobe series 2 image 23). - Mild increase in size of small right pleural effusion. Problems list: * Bilateral cavitary multilobular pneumonia * Multiple lung masses * History of hypertension and hyperlipidemia 1. Bilateral cavitary multilobar pneumonia: -Patient had cough shortness of breath - CAT scan and chest x-ray showing bilateral cavitary multilobar pneumonia -ID recommendation appreciated, meropenem will be continued 1 g every 8 hour till Tuesday -On Tuesday will start him on oral antibiotic - pleural fluid cultures negative for Mycobacterium tuberculosis -Diagnostic bronchoscopy was performed 2 days ago. Will follow up on report. -Labs are trending down History of Hypertension and Hyperlipidemia: -Lisinopril on hold and he is taking atorvastatin Bilateral multiple lung masses: = We will follow on serial CAT scan = We will follow pulmonology recommendation for further management = Pulmonology recommendation appreciated today = Recommendation followed = Martina Foley MD recommended to * Transfer to telemetry if any issues * If any changes in EKG we can transfer patient to telemetry. Bronchoscopy: Report showed there is no malignancy DVT prophylaxis all-time Code status: Full code Problem List: 1. Pneumonia 2. Pulmonary nodule Pain Ratin Pain Location: No pain Pain Goal: Remain pain free Pain Plan: Pain management pathway Tomorrow's Labs & Rationales: CBCs
[2017-10-30 09:39] LABS: ABSOLUTE BASOPHIL COUNT 0 /CUMM (0.0-0.2); ABSOLUTE EOSINOPHIL COUNT 0.1 /CUMM (0.0-0.7); ABSOLUTE GRANULOCYTE CT 11.3 /CUMM (1.4-6.5); ABSOLUTE LYMPH COUNT 0.6 /CUMM (1.2-3.4); ABSOLUTE MONOCYTE COUNT 1.5 /CUMM (0.10-0.60); BASOPHIL % 0.1 % (0.0-2.0); EOSINOPHIL % 0.7 % (0-5); GRANULOCYTE % 84.1 % (42.2-75.2); HEMATOCRIT 35.3 % (42-52); MEAN CORPUSCULAR HGB 27.7 PG (27.0-31.0); MEAN CORPUSCULAR VOLUME 84.1 FL (80.0-94.0); MEAN PLATELET VOLUME 8.5 FL (7.4-10.4); PLATELET COUNT 603 /CUMM (130-400); RBC DISTRIBUTION WIDTH 14.6 % (11.5-14.5); RED BLOOD CELL CT 4.19 /CUMM (4.70-6.10); WHITE BLOOD CELL COUNT 13.4 /CUMM (4.8-10.8)
[2017-10-30 14:16] VITALS: BP 116/55
--- NOTE | 2017-10-30 14:46 | PN- Pulmonary ---
Subjective HPI/Critical Care Issues: The patient is awake and alert. He offers no new complaints today he continues to be frustrated over his prolonged hospitalization. He denies any increased shortness of breath, fever or chills. He denies any chest pain or abdominal pain. There were no overnight events. Objective Current Medications: Current Medications Sig/Fernando Start time Last Medication Dose Route Stop Time Status Admin Atorvastatin Calcium 40 MG DAILY 10/20 899 AC 10/30 PO 1028 Docusate Sodium 100 MG DAILY 10/28 899 AC PO Enoxaparin Sodium 40 MG DAILY 10/19 899 AC 10/30 SC 1028 Meropenem 1 GM Q8H 10/21 2100 AC 10/30 IV 1400 Multivitamins 1 TAB DAILY 10/20 899 AC 10/30 Therapeutic PO 1027 Polyethylene Glycol 17 GM DAILY 10/28 899 AC PO Senna/Docusate Sodium 2 TAB DAILY 10/28 899 AC PO Vital Signs & I&O Last 24 Hrs of Vitals and I&O: Vital Signs Date Time Temp Pulse Resp B/P B/P Pulse O2 O2 Flow FiO2 Mean Ox Delivery Rate 10/30 1416 98.3 86 18 116/55 95 Room Air 10/30 0418 98.7 88 18 108/60 93 Room Air 10/30 0000 Room Air 10/29 2200 98.4 90 18 108/67 95 Room Air 10/29 1506 98.1 82 18 117/56 97 Room Air Intake & Output 10/30 1600 10/30 0800 10/30 0000 Intake Total Output Total Balance Patient 171 lb Weight Exam General Appearance: well developed/nourished, no apparent distress, awake, anxious, comfortable Head: atraumatic Neck: supple Respiratory: few faint scattered ronchi Cardiovascular: irregularities heard Abdomen: benign Extremities: no edema Skin: intact, normal color, warm/dry Impression/Plan Impression/Plan Impression/Plan: 1. Cavitary pneumonia, 9 cm cavitary lung abscess. 2. Bilateral lung masses, rule out etiology. 3. HTN. 4. HLD. Recommendations: * Continue meropenem until Tuesday - then re-evaluate. * Follow up ID input. * Monitor oxygen saturations. * Check a follow-up chest x-ray tomorrow morning. * DVT prophylaxis at all times. * Continue all supportive care.
--- NOTE | 2017-10-30 18:13 | PN- Att Addend ---
Attending Addendum Attending Brief Note Covering attending note Patient sitting in the chair states he feels a little better today Vital signs are stable no fever. No new changes on physical examination. His last white count was 13,400. Patient with continued antibiotic today and reassess tomorrow when Dr. Meade returns Intake & Output 10/30 1600 10/30 0400 10/29 0400 10/28 1600 10/28 0400 Intake Total 800 720 420 900 20 Output Total 350 450 Balance 800 720 70 450 20 Intake, IV 20 30 20 Intake, Oral 800 720 400 870 Number 0 1 0 1 Bowel Movements Output, Urine 350 450 Patient 171 lb 178 lb 174 lb Weight Weight Bed scale Bed scale Measurement Method Current Medications Sig/Fernando Start time Last Medication Dose Route Stop Time Status Admin Atorvastatin Calcium 40 MG DAILY 10/20 899 AC 10/30 PO 1028 Docusate Sodium 100 MG DAILY 10/28 899 AC PO Enoxaparin Sodium 40 MG DAILY 10/19 899 AC 10/30 SC 1028 Meropenem 1 GM Q8H 10/21 2100 AC 10/30 IV 1400 Multivitamins 1 TAB DAILY 10/20 899 AC 10/30 Therapeutic PO 1027 Polyethylene Glycol 17 GM DAILY 10/28 899 AC PO Senna/Docusate Sodium 2 TAB DAILY 10/28 09 AC PO Laboratory Tests 10/30/17 0803: CBC w Diff NO MAN DIFF REQ, RBC 4.19 L, MCV 84.1, MCH 27.7, MCHC 33.0, RDW 14.6 H, MPV 8.5, Gran % 84.1 H, Lymphocytes % 4.2 L, Monocytes % 10.9 H, Eosinophils % 0.7, Basophils % 0.1, Absolute Granulocytes 11.3 H, Absolute Lymphocytes 0.6 L, Absolute Monocytes 1.5 H, Absolute Eosinophils 0.1, Absolute Basophils 0 10/29/17 0607: Anion Gap 9, Estimated GFR > 60, BUN/Creatinine Ratio 28.3 H, CBC w Diff NO MAN DIFF REQ, RBC 3.92 L, MCV 83.4, MCH 27.8, MCHC 33.3, RDW 14.3, MPV 8.5, Gran % 82.8 H, Lymphocytes % 4.4 L, Monocytes % 11.7 H, Eosinophils % 0.9, Basophils % 0.2, Absolute Granulocytes 8.7 H, Absolute Lymphocytes 0.5 L, Absolute Monocytes 1.2 H, Absolute Eosinophils 0.1, Absolute Basophils 0 10/28/17 0603: Anion Gap 6, Estimated GFR > 60, BUN/Creatinine Ratio 35.0 H, CBC w Diff NO MAN DIFF REQ, RBC 3.90 L, MCV 84.0, MCH 27.9, MCHC 33.2, RDW 14.8 H, MPV 8.3, Gran % 81.5 H, Lymphocytes % 5.0 L, Monocytes % 9.6 H, Eosinophils % 3.2, Basophils % 0.7, Absolute Granulocytes 8.3 H, Absolute Lymphocytes 0.5 L, Absolute Monocytes 1.0 H, Absolute Eosinophils 0.3, Absolute Basophils 0.1, ESR Westergren 87 H Vital Signs Date Time Temp Pulse Resp B/P B/P Pulse O2 O2 Flow FiO2 Mean Ox Delivery Rate 10/30 1416 98.3 86 18 116/55 95 Room Air 10/30 0418 98.7 88 18 108/60 93 Room Air 10/30 0000 Room Air 10/29 2200 98.4 90 18 108/67 95 Room Air
[2017-10-30 22:05] VITALS: BP 118/60
[2017-10-31 06:36] VITALS: BP 117/70
--- NOTE | 2017-10-31 07:23 | PN- Housestaff ---
Subjective Follow-up For: Multi-cavitatory Pneumonia Subjective: Patient was seen and examined at bedside. He had an episode of irregular heart rate over the weekend. He does not have any complaints at present. Denies fever, chills, nausea, vomiting, diarrhea or constipation. Review of Systems Constitutional: Reports: see HPI. Objective Last 24 Hrs of Vital Signs/I&O Vital Signs Date Time Temp Pulse Resp B/P B/P Pulse O2 O2 Flow FiO2 Mean Ox Delivery Rate 10/31 1406 97.7 80 18 104/56 97 Room Air 10/31 0800 Room Air 10/31 0636 97.6 80 20 117/70 94 Room Air 10/31 0000 Room Air 10/30 2212 80 10/30 2205 98.2 54 19 118/60 95 Room Air Intake & Output 10/31 1600 10/31 0800 10/31 0000 Intake Total 650 270 270 Output Total 450 Balance 200 270 270 Intake, IV 30 30 Intake, Oral 650 240 240 Number 0 0 Bowel Movements Output, Urine 450 Patient 177 lb Weight Weight Bed scale Measurement Method Physical Exam General Appearance: Alert, Oriented X3, Cooperative, No Acute Distress Neck: Supple Cardiovascular: Regular Rate, Normal S1, Normal S2 Lungs: Clear to Auscultation, Normal Air Movement Abdomen: Normal Bowel Sounds, Soft, No Tenderness, No Hepatospenomegaly Assessment/Plan Assessment: 7-year-old gentleman who is a former smoker (40yr hx), past medical history significant for hypertension and hyperlipidemia, with a recent diagnosis of Enterobacter colacae, isolated bilateral cavitary multilobar pneumonia with possible lung abscess, treated aggresively with a 14 day antibiotic course( moxifloxacin), is admitted to the [facility] service with persistent respiratory symptoms in the context of chest x-ray radiological findings showing interval increments when compared to previous study of 09/27/2017. A repeated chest X-ray done on 10/26/2017 showed no further lesions or evidence of consoliation. His ESR which was up 105 at admission has been consistently trending down. Her ESR on 10/[address] Chest IMPRESSION: - Redemonstration of numerous masses and nodules throughout both lungs many of which demonstrate central cavitation. The largest of these lesions is seen in the right lower lobe and measures up to 9.3 cm and has not significantly changed compared with 10/03/2017. Many of the lesions have increased in size and at least one lesion is new (right upper lobe series 2 image 23). - Mild increase in size of small right pleural effusion. CYTOLOGY DIAGNOSIS A. FNA, RIGHT LOWER LOBE: RARE REACTIVE AND BLAND BRONCHIAL EPITHELIAL CELLS, PULMONARY MACROPHAGES, INFLAMMATORY CELLS, AND RED BLOOD CELLS. FEATURES DIAGNOSTIC OF MALIGNANCY ARE NOT IDENTIFIED. B. FNA LUNG, RIGHT LOWER LOBE: RARE REACTIVE AND BLAND BRONCHIAL EPITHELIAL CELLS, PULMONARY MACROPHAGES, INFLAMMATORY CELLS, AND RED BLOOD CELLS. FEATURES DIAGNOSTIC OF MALIGNANCY ARE NOT IDENTIFIED. C. BRUSHINGS, RIGHT LUNG LOWER LOBE: RARE ATYPICAL CELLS OF UNCERTAIN SIGNIFICANCE, BLAND BRONCHIAL EPITHELIAL CELLS, PULMONARY MACROPHAGES, AND INFLAMMATORY CELLS. D. WASHINGS, RIGHT LUNG LOWER LOBE: RARE ATYPICAL CELLS OF UNCERTAIN SIGNIFICANCE, BLAND AND REACTIVE EPITHELIAL BRONCHIAL EPITHELIAL CELLS, INFLAMMATORY CELLS, AND RED BLOOD CELLS. 1. Bilateral cavitary multilobar pneumonia - ID recommendation appreciated. The patient is on Meropenem 1g q8 h. We would consider transitioning him to oral antibiotics in the AM tomorrow -Sputum culture gram stain positive for Gram positive cocci and Gram negative rods. Final report demonstrated mixed kade. Repeat sputum cultures were negative. -Blood cultures are sterile -CT chest with contrast done. Demonstrates interval increase in the number and size of the lesions. Chest X-ray did not demonstrate any worsening of the lesions. Repeat Chest X-ray today. Would follow up on report. -Diagnostic bronchoscopy was performed yesterday. Will follow up on report. -Legionella AG negative -ANCA negative -ALONDRA: 13 -ESR: 87 -Patient has had persistent thrombocytosis. His Hgb today was 11 today. -CT Chest in the AM. Would discharge patient if pulmonary nodules are stable. -AFB and Fungal cultures present 2. History of Hypertension and Hyperlipidemia Hold Lisinopril Continue Atorvastatin DVT prophylaxis Code status: Full code Problem List: 1. Pulmonary nodule 2. Hypertension 3. Cavitating mass of lung 4. SOB (shortness of breath) 5. Cough Pain Ratin Pain Location: none Pain Goal: Remain pain free Pain Plan: none Tomorrow's Labs & Rationales: cbc and bep
[2017-10-31 08:26] LABS: ABSOLUTE BASOPHIL COUNT 0 /CUMM (0.0-0.2); ABSOLUTE EOSINOPHIL COUNT 0.1 /CUMM (0.0-0.7); ABSOLUTE GRANULOCYTE CT 9.2 /CUMM (1.4-6.5); ABSOLUTE LYMPH COUNT 0.6 /CUMM (1.2-3.4); ABSOLUTE MONOCYTE COUNT 1.3 /CUMM (0.10-0.60); BASOPHIL % 0.3 % (0.0-2.0); EOSINOPHIL % 1.2 % (0-5); GRANULOCYTE % 81.6 % (42.2-75.2); HEMATOCRIT 32.5 % (42-52); MEAN CORPUSCULAR HGB 28.1 PG (27.0-31.0); MEAN CORPUSCULAR HGB CONC 33.8 G/DL (33.0-37.0); MEAN CORPUSCULAR VOLUME 83.3 FL (80.0-94.0); PLATELET COUNT 574 /CUMM (130-400); RBC DISTRIBUTION WIDTH 14.6 % (11.5-14.5); WHITE BLOOD CELL COUNT 11.3 /CUMM (4.8-10.8)
--- NOTE | 2017-10-31 11:45 | PN- Infect Dx ---
Subjective Subjective: Afebrile. He continues to complain of fatigue and some shortness of breath with exertion but his cough has nearly resolved. Objective Last 24 Hrs of Vital Signs/I&O Vital Signs Date Time Temp Pulse Resp B/P B/P Pulse O2 O2 Flow FiO2 Mean Ox Delivery Rate 10/31 08 Room Air 10/31 0636 97.6 80 20 117/70 94 Room Air 10/31 0000 Room Air 10/30 2212 80 10/30 2205 98.2 54 19 118/60 95 Room Air 10/30 1416 98.3 86 18 116/55 95 Room Air Intake & Output 10/31 1600 10/31 0800 10/31 0000 Intake Total 270 270 Output Total Balance 270 270 Intake, IV 30 30 Intake, Oral 240 240 Number 0 0 Bowel Movements Patient 177 lb Weight Weight Bed scale Measurement Method Physical Exam Other Physical Findings: He appears comfortable in no acute distress Lungs are clear Heart regular rhythm with no murmur Extremities no cyanosis, clubbing or edema Results Last 24 Hours of Lab Results: Laboratory Tests 10/31 0733 Hematology CBC w Diff NO MAN DIFF REQ WBC (4.8 - 10.8 /CUMM) 11.3 H RBC (4.70 - 6.10 /CUMM) 3.90 L Hgb (14.0 - 18.0 G/DL) 11.0 L Hct (42 - 52 %) 32.5 L MCV (80.0 - 94.0 FL) 83.3 MCH (27.0 - 31.0 PG) 28.1 MCHC (33.0 - 37.0 G/DL) 33.8 RDW (11.5 - 14.5 %) 14.6 H Plt Count (130 - 400 /CUMM) 574 H MPV (7.4 - 10.4 FL) 8.0 Gran % (42.2 - 75.2 %) 81.6 H Lymphocytes % (20.5 - 51.1 %) 5.0 L Monocytes % (1.7 - 9.3 %) 11.9 H Eosinophils % (0 - 5 %) 1.2 Basophils % (0.0 - 2.0 %) 0.3 Absolute Granulocytes (1.4 - 6.5 /CUMM) 9.2 H Absolute Lymphocytes (1.2 - 3.4 /CUMM) 0.6 L Absolute Monocytes (0.10 - 0.60 /CUMM) 1.3 H Absolute Eosinophils (0.0 - 0.7 /CUMM) 0.1 Absolute Basophils (0.0 - 0.2 /CUMM) 0 Lung biopsies October 26 negative for malignancy, with AFB and GMS stains negative Last 24 Hours of Elder Results: Right lower lung fluid routine cultures negative, with AFB and fungal cultures pending Recent Imaging Studies: Chest x-ray October 28 stable multiple bilateral lung masses, unchanged from the previous film Assessment/Plan ID Impression: Clinically improved, with temperatures and white blood cell count remaining essentially normal, near resolution of his cough and improvement in his dyspnea, on Meropenem, Day 12 of treatment for bilateral lung masses/nodules, some of which are cavitary and presumed to be abscesses, with the treatment directed against the Enterobacter isolated on his previous hospitalization as well as anaerobes, which are presumably involved. There was evidence of obstruction of the right lower lobe bronchus, felt to be secondary to the thick wall of the abscess, with biopsies from this area negative, but with the CT-guided biopsy 10 days ago, still pending. Suggestion: 1. Follow-up final biopsies 2. Continue Meropenem but, upon discharge, would change to Augmentin 875 mg p.o. every 12 hours and Ciprofloxacin 500 mg p.o. every 12 hours to plan on an additional 4-6 weeks of treatment, with follow-up CT scan as an outpatient.
--- NOTE | 2017-10-31 13:14 | PN- Pulmonary ---
Subjective HPI/Critical Care Issues: Afebrile. He continues to complain of fatigue and some shortness of breath with exertion but his cough has nearly resolved. Objective Current Medications: Current Medications Sig/Fernando Start time Last Medication Dose Route Stop Time Status Admin Atorvastatin Calcium 40 MG DAILY 10/20 899 AC 10/31 PO 0810 Docusate Sodium 100 MG DAILY 10/28 09 AC 10/31 PO 0811 Enoxaparin Sodium 40 MG DAILY 10/19 899 AC 10/31 SC 0810 Meropenem 1 GM Q8H 10/21 2100 AC 10/31 IV 0503 Multivitamins 1 TAB DAILY 10/20 899 AC 10/31 Therapeutic PO 0810 Patient Medication 1 ED ONE ONE 10/31 1030 DC Teaching ED 10/31 1031 Polyethylene Glycol 17 GM DAILY 10/28 899 AC PO Senna/Docusate Sodium 2 TAB DAILY 10/28 899 AC PO Vital Signs & I&O Last 24 Hrs of Vitals and I&O: Vital Signs Date Time Temp Pulse Resp B/P B/P Pulse O2 O2 Flow FiO2 Mean Ox Delivery Rate 10/31 0800 Room Air 10/31 0636 97.6 80 20 117/70 94 Room Air 10/31 0000 Room Air 10/30 2212 80 10/30 2205 98.2 54 19 118/60 95 Room Air 10/30 1416 98.3 86 18 116/55 95 Room Air Intake & Output 10/31 1600 10/31 0800 10/31 0000 Intake Total 270 270 Output Total Balance 270 270 Intake, IV 30 30 Intake, Oral 240 240 Number 0 0 Bowel Movements Patient 177 lb Weight Weight Bed scale Measurement Method Laboratory Tests 10/31 10/30 0733 0803 Hematology CBC w Diff NO MAN DIFF REQ NO MAN DIFF REQ WBC (4.8 - 10.8 /CUMM) 11.3 H 13.4 H RBC (4.70 - 6.10 /CUMM) 3.90 L 4.19 L Hgb (14.0 - 18.0 G/DL) 11.0 L 11.6 L Hct (42 - 52 %) 32.5 L 35.3 L MCV (80.0 - 94.0 FL) 83.3 84.1 MCH (27.0 - 31.0 PG) 28.1 27.7 MCHC (33.0 - 37.0 G/DL) 33.8 33.0 RDW (11.5 - 14.5 %) 14.6 H 14.6 H Plt Count (130 - 400 /CUMM) 574 H 603 H MPV (7.4 - 10.4 FL) 8.0 8.5 Gran % (42.2 - 75.2 %) 81.6 H 84.1 H Lymphocytes % (20.5 - 51.1 %) 5.0 L 4.2 L Monocytes % (1.7 - 9.3 %) 11.9 H 10.9 H Eosinophils % (0 - 5 %) 1.2 0.7 Basophils % (0.0 - 2.0 %) 0.3 0.1 Absolute Granulocytes (1.4 - 6.5 /CUMM) 9.2 H 11.3 H Absolute Lymphocytes (1.2 - 3.4 /CUMM) 0.6 L 0.6 L Absolute Monocytes (0.10 - 0.60 /CUMM) 1.3 H 1.5 H Absolute Eosinophils (0.0 - 0.7 /CUMM) 0.1 0.1 Absolute Basophils (0.0 - 0.2 /CUMM) 0 0 Impression/Plan Impression/Plan Impression/Plan: Sheryl eomi Lungs are clear Heart regular rhythm with no murmur Extremities no cyanosis, clubbing or edema This is a gentleman with HTN and Hyperlipedemia with 40 pack yrs smoker quit many rs ago with recent travel to [facility] has one month history of cough and yellow sputum with poor dention, 30 pound wt loss now has * large 9 cm cavitary lung abscess with multiple lung massess (prior bx nil sig) , despite being on aggressive antibiotic outpatient by mouth therapy with moxifloxacin. Now on IV meropenam (had enterobacter before). Other pathology like inflammatory diseases including polyangiitis versus sarcoidosis etc. is unlikely. Lung biopsy done showed significant inflammation but no evidence suggestive of vasculitis are any granuloma. Patient is HIV negative. Low risk for MTB. Has grown Enterobacter which needs to be treated again with anaerobic coverage. S/p rpt bx. S/p bronch with bal - no sig purulence noted * Wt loss recently, prior smoking * HTN and HLD PLAN Intravenous meropenem CT chest without contrast in am to eval for evolution of lung nodules WIll consider dc if ct is stable in am with po abx
[2017-10-31 14:06] VITALS: BP 104/56
[2017-10-31 21:06] VITALS: BP 120/59
[2017-11-01 06:54] VITALS: BP 108/53
--- NOTE | 2017-11-01 06:54 | PN- Housestaff ---
Subjective Follow-up For: Multiple pulmonary cavitary lesions Complaints: no complaints Subjective: Patient seen and examined sitting comfortably in his bed eating breakfast. Has no complaints, states that he is not short of breath at rest, mild shortness of breath on ambulation, very mild cough, no acute events overnight. Review of Systems Constitutional: Reports: no symptoms. Objective Last 24 Hrs of Vital Signs/I&O Vital Signs Date Time Temp Pulse Resp B/P B/P Pulse O2 O2 Flow FiO2 Mean Ox Delivery Rate 11/01 08 96 Room Air 11/01 0654 98.0 80 18 108/53 96 10/31 2106 98.2 89 16 120/59 95 Room Air 10/31 1406 97.7 80 18 104/56 97 Room Air Intake & Output 11/01 1600 11/01 0800 11/01 0000 Intake Total 240 Output Total Balance 240 Intake, Oral 240 Patient 175 lb Weight Physical Exam General Appearance: Alert, Oriented X3, Cooperative, No Acute Distress Skin: No Rashes, No Breakdown, No Significant Lesion Skin Temp/Moisture Exam: Cool/Dry Sepsis Skin Exam (color): Normal for Ethnicity HEENT: Atraumatic, Mucous Membr. moist/pink Neck: Supple, No JVD, No thryomegaly, No LAD Cardiovascular: Regular Rate, Normal S1, Normal S2 Lungs: Clear to Auscultation, Normal Air Movement Abdomen: Normal Bowel Sounds, Soft, No Tenderness, No Hepatospenomegaly, No Masses Neurological: Normal Gait, Normal Speech, Strength at 5/5 X4 Ext, Normal Tone, Sensation Intact Extremities: No Clubbing, No Cyanosis, No Edema Vascular: Normal Pulses, Pulses Symmetrical Assessment/Plan Assessment: 77-year-old man with a past medical history significant for hypertension, hyperlipidemia, past smoker with a [id number] smoking history, who presented with cough productive of yellow sputum and 30 pound weight loss. Imaging showed multiple cavitary pulmonary lesions, was treated with 2 weeks of IV antibiotics, diagnosed with lymphoma Assessment and plan: phenotype, as per the bronchoscopic lung biopsy findings marrow biopsy. not receive his Lovenox tomorrow morning. antibiotics Problem List: 1. Cavitating mass of lung 2. Hypertension Pain Ratin Pain Location: None Pain Goal: Remain pain free Pain Plan: Follow pain pathway Tomorrow's Labs & Rationales: PT, INR
[2017-11-01 08:38] LABS: ABSOLUTE BASOPHIL COUNT 0.1 /CUMM (0.0-0.2); ABSOLUTE EOSINOPHIL COUNT 0.3 /CUMM (0.0-0.7); ABSOLUTE GRANULOCYTE CT 6.5 /CUMM (1.4-6.5); ABSOLUTE LYMPH COUNT 0.3 /CUMM (1.2-3.4); ABSOLUTE MONOCYTE COUNT 1.2 /CUMM (0.10-0.60); BASOPHIL % 0.7 % (0.0-2.0); EOSINOPHIL % 3.6 % (0-5); GRANULOCYTE % 77.7 % (42.2-75.2); HEMATOCRIT 31.3 % (42-52); MEAN CORPUSCULAR HGB 27.8 PG (27.0-31.0); MEAN CORPUSCULAR HGB CONC 33.6 G/DL (33.0-37.0); MEAN CORPUSCULAR VOLUME 82.8 FL (80.0-94.0); MEAN PLATELET VOLUME 8.4 FL (7.4-10.4); PLATELET COUNT 574 /CUMM (130-400); RBC DISTRIBUTION WIDTH 14.5 % (11.5-14.5); RED BLOOD CELL CT 3.78 /CUMM (4.70-6.10); WHITE BLOOD CELL COUNT 8.3 /CUMM (4.8-10.8)
--- NOTE | 2017-11-01 10:17 | PN- Pulmonary ---
Subjective HPI/Critical Care Issues: Afebrile. He continues to complain of fatigue and some shortness of breath with exertion but his cough has nearly resolved. BX C/W LYMPHOMA AND PATH PENDING Objective Current Medications: Current Medications Sig/Fernando Start time Last Medication Dose Route Stop Time Status Admin Acetaminophen 650 MG ONCE ONE 11/01 0015 DC 11/01 PO 11/01 0016 0007 Acetaminophen 0 .STK-MED ONE 11/01 0007 DC PO Atorvastatin Calcium 40 MG DAILY 10/20 899 AC 11/01 PO 923 Docusate Sodium 100 MG DAILY 10/28 899 AC 10/31 PO 810 Enoxaparin Sodium 40 MG DAILY 10/19 899 AC 11/01 SC 924 Melatonin 5 MG AT BEDTIME 10/31 2099 AC 10/31 PO 2108 Meropenem 1 GM Q8H 10/21 2099 AC 11/01 IV 0452 Multivitamins 1 TAB DAILY 10/20 899 AC 11/01 Therapeutic PO 923 Patient Medication 1 ED ONE ONE 10/31 1030 DC Teaching ED 10/31 1031 Polyethylene Glycol 17 GM DAILY 10/28 899 AC PO Senna/Docusate Sodium 2 TAB DAILY 10/28 899 AC PO Vital Signs & I&O Last 24 Hrs of Vitals and I&O: Vital Signs Date Time Temp Pulse Resp B/P B/P Pulse O2 O2 Flow FiO2 Mean Ox Delivery Rate 11/01 0800 96 Room Air 11/01 0654 98.0 80 18 108/53 96 10/31 2106 98.2 89 16 120/59 95 Room Air 10/31 1406 97.7 80 18 104/56 97 Room Air Intake & Output 11/01 1600 11/01 0800 11/01 0000 Intake Total 240 Output Total Balance 240 Intake, Oral 240 Patient 175 lb Weight Impression/Plan Impression/Plan Impression/Plan: Sheryl eomi Lungs are clear Heart regular rhythm with no murmur Extremities no cyanosis, clubbing or edema This is a gentleman with HTN and Hyperlipedemia with 40 pack yrs smoker quit many rs ago with recent travel to [facility] has one month history of cough and yellow sputum with poor dention, 30 pound wt loss now has * Multiple lung masses some cavitary now bx c/w Lymphoma, may have had infection in the rt lower lobe cavitary lesion with enterobacter and pt is s/p 2 weeks of iv abx * Wt loss recently, prior smoking * HTN and HLD PLAN ONc consult called (pt is aware of the dx) Will try to get a bone marrow bx by IR if able today (please ask IR if this can be done today) Finish abx today and will dc in am Dr Kolb will see patient in am DC in am
[2017-11-01 13:53] VITALS: BP 116/65
--- NOTE | 2017-11-01 17:24 | PN- Infect Dx ---
Subjective Subjective: Afebrile without complaints. Objective Last 24 Hrs of Vital Signs/I&O Vital Signs Date Time Temp Pulse Resp B/P B/P Pulse O2 O2 Flow FiO2 Mean Ox Delivery Rate 11/01 1353 98.0 87 18 116/65 97 Room Air 11/01 0800 96 Room Air 11/01 0654 98.0 80 18 108/53 96 10/31 2106 98.2 89 16 120/59 95 Room Air Intake & Output 11/01 1600 11/01 0800 11/01 0000 Intake Total 950 240 Output Total Balance 950 240 Intake, IV 50 Intake, Oral 900 240 Number 0 Bowel Movements Patient 175 lb Weight Physical Exam Other Physical Findings: He appears comfortable in no acute distress Exam is unchanged Results Last 24 Hours of Lab Results: Laboratory Tests 11/01 11/01 1344 0555 Coagulation PT Cancelled INR Cancelled Hematology CBC w Diff NO MAN DIFF REQ WBC (4.8 - 10.8 /CUMM) 8.3 RBC (4.70 - 6.10 /CUMM) 3.78 L Hgb (14.0 - 18.0 G/DL) 10.5 L Hct (42 - 52 %) 31.3 L MCV (80.0 - 94.0 FL) 82.8 MCH (27.0 - 31.0 PG) 27.8 MCHC (33.0 - 37.0 G/DL) 33.6 RDW (11.5 - 14.5 %) 14.5 Plt Count (130 - 400 /CUMM) 574 H MPV (7.4 - 10.4 FL) 8.4 Gran % (42.2 - 75.2 %) 77.7 H Lymphocytes % (20.5 - 51.1 %) 4.2 L Monocytes % (1.7 - 9.3 %) 13.8 H Eosinophils % (0 - 5 %) 3.6 Basophils % (0.0 - 2.0 %) 0.7 Absolute Granulocytes (1.4 - 6.5 /CUMM) 6.5 Absolute Lymphocytes (1.2 - 3.4 /CUMM) 0.3 L Absolute Monocytes (0.10 - 0.60 /CUMM) 1.2 H Absolute Eosinophils (0.0 - 0.7 /CUMM) 0.3 Absolute Basophils (0.0 - 0.2 /CUMM) 0.1 Lung biopsy October 21 positive for large B-cell lymphoma Last 24 Hours of Elder Results: No recent cultures Assessment/Plan ID Impression: Clinically improved, with temperatures and white blood cell count normal, resolution of his cough and improvement in his dyspnea, on Meropenem, Day 13 of treatment for possible lung abscesses, though the biopsy from his CT-guided procedure on October 21 has now been reported as positive for lymphoma. Given the improvement in his symptoms suspect that the air-fluid level and some of the cavitary lesions may represent bacterial superinfection; therefore will need to consider continuing antibiotics and will discuss this further. Suggestion: 1. Await Oncology evaluation and possible bone marrow 2. Continue Meropenem (will discuss role of continuing antibiotics, for example orally, as noted above)
[2017-11-01 21:37] VITALS: BP 114/62
[2017-11-02 05:51] LABS: PT 12.9 SEC (9.4-12.5)
[2017-11-02 06:23] VITALS: BP 122/64
--- NOTE | 2017-11-02 06:41 | PN- Housestaff ---
Subjective Follow-up For: Multiple pulmonary cavitary lesions Complaints: no complaints Subjective: Patient seen and examined sitting comfortably in bed this morning. He is n.p.o. for CT-guided bone marrow biopsy today. He has no complaints at this time. No acute events overnight. Review of Systems Constitutional: Reports: no symptoms, see HPI. Objective Last 24 Hrs of Vital Signs/I&O Vital Signs Date Time Temp Pulse Resp B/P B/P Pulse O2 O2 Flow FiO2 Mean Ox Delivery Rate 11/02 1315 98.7 76 18 117/74 97 Room Air 11/02 0747 93 Room Air 11/02 0623 97.6 83 19 122/64 87 11/01 2137 98.5 82 19 114/62 94 Room Air Intake & Output 11/02 1600 11/02 0800 11/02 0000 Intake Total 400 420 Output Total 400 Balance 0 420 Intake, IV 20 Intake, Oral 400 400 Output, Urine 400 Patient 174 lb Weight Physical Exam General Appearance: Alert, Oriented X3, Cooperative, No Acute Distress Other Physical Findings: General Appearance: Patient seen and examined lying comfortably in bed in no acute distress. Alert, Oriented X3, Cooperative, No Acute Distress Skin: No Breakdown Skin Temp/Moisture Exam: Warm/Dry Sepsis Skin Exam (color): Normal for Ethnicity HEENT: Atraumatic, PERRLA, EOMI, Mucous Membr. moist/pink Neck: Supple, No JVD, No thryomegaly, +2 Carotid Pulse wo Bruit Cardiovascular: Regular Rate, Normal S1, Normal S2, No Murmurs Lungs: CTA, No w/r/r Abdomen: Normal Bowel Sounds, Soft, No Tenderness, No Hepatospenomegaly Neurological: Normal Speech, normal gait, normal Tone, Sensation Intact Extremities: No Clubbing, No Cyanosis, No edema,Normal Pulses Vascular: Pulses Symmetrical Current Medications: Current Medications Sig/Fernando Start time Last Medication Dose Route Stop Time Status Admin Acetaminophen 0 .STK-MED ONE 11/02 828 DC PO Acetaminophen 325 MG ONCE ONE 11/02 08 DC 11/02 PO 11/02 0816 0828 Atorvastatin Calcium 40 MG DAILY 10/20 899 DCD 11/02 PO 0829 Docusate Sodium 100 MG DAILY 10/28 899 DCD 10/31 PO 0811 Fentanyl Citrate 0 .STK-MED ONE 11/02 1044 DC .ROUTE Flumazenil 0 .STK-MED ONE 11/02 1045 DC IV Melatonin 5 MG AT BEDTIME 10/31 2099 DCD 11/01 PO 2041 Meropenem 1 GM Q8H 10/21 2099 DCD 11/02 IV 1327 Midazolam HCl 0 .STK-MED ONE 11/02 1044 DC .ROUTE Multivitamins 1 TAB DAILY 10/20 899 DCD 11/02 Therapeutic PO 0829 Naloxone HCl 0 .STK-MED ONE 11/02 1045 DC .ROUTE Polyethylene Glycol 17 GM DAILY 10/28 899 DCD PO Senna/Docusate Sodium 2 TAB DAILY 10/28 899 DCD PO Last 24 Hrs of Lab/Elder Results Last 24 Hrs of Labs/Mics: Laboratory Tests 11/02/17 1315: Hepatitis Be Antibody Pending 11/02/17 1315: Hep Bs Antigen Pending, Hep Bs Antibody Pending, Hep B Core IgM Ab Conf Pending, Hepatitis C Antibody Pending 11/02/17 1120: Leukemic Chromosome Anal Pending, Flow Cytometry Specimen Pending 11/02/17 0500: PT 12.9 H, INR 1.18 H Assessment/Plan Assessment: 77-year-old man with a past medical history significant for hypertension, hyperlipidemia, past smoker with a [id number] smoking history, who presented with cough productive of yellow sputum and 30 pound weight loss. Imaging showed multiple cavitary pulmonary lesions, was treated with 2 weeks of IV antibiotics, diagnosed with lymphoma Problems: 1. diffuse large B cell lymphoma, non-germinal center phenotype: As per bronchoscopic pathology findings. 2.multiple cavitary pulmonary lesions Assessment and plan: cell lymphoma today. Will be checked before starting patient for treatment for lymphoma. discharged today with 4 weeks of p.o. antibiotics: Augmentin p.o. 875 mg twice a day and Cipro p.o 500 twice a day. oncology 1 week after discharge. Problem List: 1. Large B-cell lymphoma 2. Cavitating mass of lung Pain Ratin Pain Location: None Pain Goal: Remain pain free Pain Plan: Pain pathway Tomorrow's Labs & Rationales: Not required
--- NOTE | 2017-11-02 08:54 | Cons- Hematology ---
General Information and HPI Consulting Request Date of Consult: 11/02/17 Requested By: Halina PRECIADO,Piotr Riggs Reason for Consult: large B cell lymphoma Source of Information: patient, old records Exam Limitations: no limitations History of Present Illness: Mr. Elias is a 77-year old male with multiple lung masses with some being cavitary who presented to the hospital with coughing and dyspnea. He has previous biopsy of his lung nodule but was non-diagnostic. He was subsequently seen by Dr. Boland with the patient for a navigational bronchoscopy. Biopsy return as large B-cell lymphoma. He is currently being treated for possible lung abscess. His symptom has improved with treatment of his potential infection. Infectious Disease is following the patient. He currently feels well. He denies any new pain. He has no fever or chills. He has no nausea or vomiting. He feels almost back to baseline. Allergies/Medications Allergies: Coded Allergies: NO KNOWN ALLERGIES (09/24/13) Home Med List: Aspirin (Aspirin*) 81 MG TAB.CHEW 1 TAB PO DAILY HEART HEALTH (Reported) Calcium (Elemental-Fr Calcarb) (Calcium) 600 MG CALCIUM (1,500 MG) TABLET 1 TAB PO DAILY SUPPLEMENT (Reported) Lisinopril 10 MG TABLET 1 TAB PO DAILY HEART (Reported) Multivitamin (Daily Multiple Vitamin) 1 EACH TABLET 1 TAB PO DAILY VITAMIN SUPPORT (Reported) [place]-3 Fatty Acids/Fish Oil (Fish Oil 1,000 MG Capsule) 340 MG-1,000 MG CAPSULE 1 CAP PO DAILY SUPPLEMENT (Reported) Rosuvastatin Calcium (Crestor) 10 MG TABLET 1 TAB PO DAILY CHOLESTEROL ( Reported) Vit A/Vit C/Vit E/Zinc/Copper (Preservision Areds Softgel) 14,320-226 CAPSULE 1 CAP PO DAILY EYE (Reported) Current Medications: Current Medications Sig/Fernando Start time Last Medication Dose Route Stop Time Status Admin Acetaminophen 0 .STK-MED ONE 11/02 828 DC PO Acetaminophen 325 MG ONCE ONE 11/02 814 DC 11/02 PO 11/02 08 0828 Atorvastatin Calcium 40 MG DAILY 10/20 09 AC 11/02 PO 828 Docusate Sodium 100 MG DAILY 10/28 0900 AC 10/31 PO 0811 Enoxaparin Sodium 40 MG DAILY 10/19 09 DC 11/01 SC 924 Melatonin 5 MG AT BEDTIME 092099 AC 11/01 PO 2041 Meropenem 1 GM Q8H 10/21 2100 AC 11/02 IV 0501 Multivitamins 1 TAB DAILY 10/20 899 AC 11/02 Therapeutic PO 828 Polyethylene Glycol 17 GM DAILY 10/28 899 AC PO Senna/Docusate Sodium 2 TAB DAILY 10/28 899 AC PO Review of Systems Review of Systems Constitutional: Reports: malaise, weakness. Denies: chills, fever. Cardiovascular: Denies: chest pain. Respiratory: Reports: short of breath. GI: Denies: diarrhea. Genitourinary: Denies: dysuria. Musculoskeletal: Denies: back pain. Skin: Denies: rash. Neurological/Psychological: Denies: anxiety, confusion. Hematologic/Endocrine: Denies: bruising, bleeding. Immunologic/Allergic: Denies: lymphadenopathy. All Other Systems: Reviewed and Negative Past History Travel History Traveled to [place] past 21 day No Medical History Blood Transfusion Hx: No Neurological: NONE EENT: cataracts, GLAUCOMA BOTH EYES Cardiovascular: hypertension, hyperlipidemia Respiratory: NONE Gastrointestinal: GERD Hepatic: NONE Renal: NONE Musculoskeletal: NONE Psychiatric: NONE Endocrine: NONE Blood Disorders: NONE Cancer(s): NONE ENVIRONMENTAL HEALTH MANAGER/Reproductive: NONE Surgical History Surgical History: cholecystectomy, hemorrhoid surgery Psychosocial History Where Do You Live? Home Services at Home: None Smoking Status: Former Smoker ETOH Use: denies use Illicit Drug Use: denies illicit drug use Exam & Diagnostic Data Vital Signs and I&O Vital Signs Date Time Temp Pulse Resp B/P B/P Pulse O2 O2 Flow FiO2 Mean Ox Delivery Rate 11/02 0747 93 Room Air 11/02 0623 97.6 83 19 122/64 87 11/01 2137 98.5 82 19 114/62 94 Room Air 11/01 1353 98.0 87 18 116/65 97 Room Air Intake & Output 11/02 1600 11/02 0800 11/02 0000 Intake Total 420 Output Total Balance 420 Intake, IV 20 Intake, Oral 400 Patient 78.925 kg Weight Physical Exam General Appearance: well developed/nourished, no apparent distress, alert, awake , comfortable Head: atraumatic, normal appearance Eyes: Bilateral: EOMI. Ears, Nose, Throat: normal pharynx Neck: supple, full range of motion Respiratory: chest non-tender, no respiratory distress, quiet respiration Cardiovascular: regular rate/rhythm Gastrointestinal: normal bowel sounds, soft, non-tender, no organomegaly Extremities: no edema Neurologic/Psych: awake, alert, oriented x 3 Skin: normal color Last 48 Hours of Lab Results: Laboratory Tests 11/02 11/01 11/01 0500 1344 0555 Coagulation PT (9.4 - 12.5 SEC) 12.9 H Cancelled INR (0.90 - 1.17) 1.18 H Cancelled Hematology CBC w Diff NO MAN DIFF REQ WBC (4.8 - 10.8 /CUMM) 8.3 RBC (4.70 - 6.10 /CUMM) 3.78 L Hgb (14.0 - 18.0 G/DL) 10.5 L Hct (42 - 52 %) 31.3 L MCV (80.0 - 94.0 FL) 82.8 MCH (27.0 - 31.0 PG) 27.8 MCHC (33.0 - 37.0 G/DL) 33.6 RDW (11.5 - 14.5 %) 14.5 Plt Count (130 - 400 /CUMM) 574 H MPV (7.4 - 10.4 FL) 8.4 Gran % (42.2 - 75.2 %) 77.7 H Lymphocytes % (20.5 - 51.1 %) 4.2 L Monocytes % (1.7 - 9.3 %) 13.8 H Eosinophils % (0 - 5 %) 3.6 Basophils % (0.0 - 2.0 %) 0.7 Absolute Granulocytes (1.4 - 6.5 /CUMM) 6.5 Absolute Lymphocytes (1.2 - 3.4 /CUMM) 0.3 L Absolute Monocytes (0.10 - 0.60 /CUMM) 1.2 H Absolute Eosinophils (0.0 - 0.7 /CUMM) 0.3 Absolute Basophils (0.0 - 0.2 /CUMM) 0.1 Imaging/Other Studies: CT CHEST WITH CONTRAST 10/20/2017: LUNGS: There is redemonstration of numerous masses and nodules throughout both lungs many of which demonstrate central cavitation. The largest of these lesions is seen in the right lower lobe and measures up to 9.3 cm in maximal oblique dimension which is similar to the prior study although the central area of cavitation has mildly increased in size. Most of the lesions have increased in size compared with 10/03/2017. For example in the right lower lobe lesion now measures 3.4 cm, previously 2.0 cm (series 2 image 42 compared with series 2 image 47). A lesion in the medial aspect of the left lower lobe now measures 2.8 cm, previously 2.3 cm (series 2 image 51 compared with series 2 image 51). A lesion in the right upper lobe is new from prior ( series 2 image 23). Otherwise, no definite additional new lesions are seen. MEDIASTINUM: A subcarinal lymph node measures 1.4 cm, slightly increased from prior. Additional nonenlarged mediastinal lymph nodes are noted. PLEURA: Increased size of small right pleural effusion. No pneumothorax. AXILLA: No lymphadenopathy. UPPER ABDOMEN: The visualized portions of the upper abdominal viscera are within normal limits. OSSEOUS STRUCTURES: Advanced spondylotic changes throughout the thoracic spine. No acute fracture. No destructive osseous lesion. Old healed right-sided rib fractures are noted. IMPRESSION: - Redemonstration of numerous masses and nodules throughout both lungs many of which demonstrate central cavitation. The largest of these lesions is seen in the right lower lobe and measures up to 9.3 cm and has not significantly changed compared with 10/03/2017. Many of the lesions have increased in size and at least one lesion is new (right upper lobe series 2 image 23). - Mild increase in size of small right pleural effusion. ECHOCARDIOGRAM 10/03/2017: Normal LV chamber size, wall thickness and systolic function. The estimated LVEF is 55-60%. There are no focal wall motion abnormalities. There is trace mitral regurgitation. Mildly thickened and calcified aortic valve leaflets with adequate leaflet opening. There is focal calcification over the noncoronary leaflet. Assessment/Plan Assessment: Mr. Elias is a 77-year-old male with hypertension, hyperlipidemia, and multiple pulmonary nodule with previous admissions pneumonia and possible lung abscess Who presented to [facility] for persistent shortness of breath and exertional dyspnea. He was evaluated with a CT scan which demonstrated interval progression of his pulmonary nodules and cavitary lesions. He was seen by Dr. Boland and underwent a navigational bronchoscopy of the right lower lobe. This return as large B-cell lymphoma. Final pathology still pending. Given his lymphoma diagnosis, he will need a bone marrow biopsy. He will also need to finish staging with a PET scan. This may be done as outpatient. He has had echocardiogram a ready. He will need a port placement for chemotherapy. He will have to have hepatitis and HIV evaluated. HIV has been evaluated previously. He will need to evaluate for hepatitis. He will be follow up as an outpatient to discuss further management. Recommendations: Large B-cell lymphoma: -obtain bone marrow biopsy -patient will need port placement -PET scan as outpatient -need hepatitis evalaution -follow up as an outpatient Pulmonary abscess: -antibiotics as per ID and primary Problem List: 1. Pneumonia 2. Large B-cell lymphoma 3. Pulmonary abscess Other Findings/Comments: Please call [phone] with any questions or concerns. Consult Acknowledgment - Thank you for your consult request.
--- NOTE | 2017-11-02 10:31 | PN- Pulmonary ---
See Addendum Subjective HPI/Critical Care Issues: Doing ok For bone marrow Objective Current Medications: Current Medications Sig/Fernando Start time Last Medication Dose Route Stop Time Status Admin Acetaminophen 0 .STK-MED ONE 11/02 828 DC PO Acetaminophen 325 MG ONCE ONE 11/02 814 DC 11/02 PO 11/02 0816 0828 Atorvastatin Calcium 40 MG DAILY 10/20 899 AC 11/02 PO 828 Docusate Sodium 100 MG DAILY 10/28 899 AC 10/31 PO 08 Enoxaparin Sodium 40 MG DAILY 10/19 899 DC 11/01 SC 924 Melatonin 5 MG AT BEDTIME 10/31 2099 AC 11/01 PO 204 Meropenem 1 GM Q8H 10/21 2099 AC 11/02 IV 0501 Multivitamins 1 TAB DAILY 10/20 899 AC 11/02 Therapeutic PO 828 Polyethylene Glycol 17 GM DAILY 10/28 899 AC PO Senna/Docusate Sodium 2 TAB DAILY 10/28 899 AC PO Vital Signs & I&O Last 24 Hrs of Vitals and I&O: Vital Signs Date Time Temp Pulse Resp B/P B/P Pulse O2 O2 Flow FiO2 Mean Ox Delivery Rate 11/02 0747 93 Room Air 11/02 0623 97.6 83 19 122/64 87 11/01 2137 98.5 82 19 114/62 94 Room Air 11/01 1353 98.0 87 18 116/65 97 Room Air Intake & Output 11/02 1600 11/02 0800 11/02 0000 Intake Total 420 Output Total Balance 420 Intake, IV 20 Intake, Oral 400 Patient 174 lb Weight Impression/Plan Impression/Plan Impression/Plan: Sheryl eomi Lungs are clear Heart regular rhythm with no murmur Extremities no cyanosis, clubbing or edema This is a gentleman with HTN and Hyperlipedemia with 40 pack yrs smoker quit many rs ago with recent travel to [facility] has one month history of cough and yellow sputum with poor dention, 30 pound wt loss now has * Multiple lung masses some cavitary now bx c/w Lymphoma, with infection in the rt lower lobe cavitary lesion with previous enterobacter and pt is s/p 2 weeks of iv abx, and needs prolonged out pt rx * Wt loss recently, prior smoking * HTN and HLD PLAN Ask ID about po abx choice and duration (?6 weeks) HEp c antibody, Hep b antibody panel, HEp B surface antigen Ok to dc soon if ok with ID and will follow with me in 1-2 weeks Rpt cxr today
--- NOTE | 2017-11-02 12:38 | CT SCAN REPORT ---
CLINICAL HISTORY: This patient is a 77 years old male with lymphoma, who presents to Interventional Radiology for CT-guided bone marrow biopsy. PROCEDURES: 1. Limited CT of the pelvis. 2. CT-guided core needle biopsy of the right iliac bone. PHYSICIANS: Dr. Nadine Glaser (attending) MONITORING: The procedure was performed with conscious sedation and analgesia under my direct supervision. Continuous blood pressure, pulse oximetry as well as heart rate monitoring was performed by an independent registered nurse. Physician intraservice sedation time was 15 minutes. MEDICATIONS: 1. Versed 1 mg and fentanyl 50 mcg IV were administered. 2. Lidocaine 1%, 10 mL, SQ. COMPLICATIONS: None ESTIMATED BLOOD LOSS: <5 mL SPECIMENS: Bone marrow aspirate from the right iliac bone IMPLANT: None CONTRAST: None TOTAL DLP: 170.67 mGy-cm SITE MARKING: As part of the preprocedure verification policy, a site marking procedure was initiated. Due to the nature the procedure, the insertion site could not be predetermined thus invoking the policy of exemption to site laterality and marking. Insertion site marking was performed in the procedure room in conjunction with imaging confirmation. PROCEDURE NOTE: Informed consent was obtained from the patient prior to the procedure. During this process, the procedure and potential alternatives were explained along with the intended outcome and benefits. The risks of the procedure, including the possibility of an unsuccessful procedure, as well as the risk of not doing the procedure, were discussed. The patient was given the opportunity to ask questions regarding the procedure and appeared competent to make decisions. A signed consent form documenting this discussion was placed in the medical record. A time-out procedure was performed. The patient was brought to the CAT scan room and placed in the prone position. CAT scan images of the pelvis were obtained to localize posterior right iliac bone. The patient's right buttock was prepped and draped in standard sterile fashion. All elements of maximal sterile barrier technique followed including use of cap, mask, sterile gown, sterile gloves, a sterile full body drape and hand hygiene. Also followed skin preparation with 2% chlorhexidine for cutaneous antisepsis, and sterile ultrasound preparation with sterile gel and probe cover when applicable. 10 mL of 1% lidocaine was used to obtain local anesthesia of the skin and deeper tissues. An 11-gauge On-Control coaxial needle was passed through the skin and placed into the bone using CT fluoroscopic guidance. 10 mL of marrow was aspirated and sent for flow cytometry and cytogenetics. Using the core biopsy needle, one 13-gauge core specimen of the marrow was attempted to be obtained, however the bone was quite soft and a core specimen did not return with the cannula. The access needle was removed, manual compression was held for 10 contiguous minutes and hemostasis was obtained. Dermabond was utilized to close the dermatotomy. The patient tolerated procedure well without complications. FINDINGS: Successful bone marrow aspirate. The bone was quite fragile and a bone core was unable to be obtained. IMPRESSION: CT-guided bone marrow biopsy as described. PLAN: The patient was stable after the procedure and was transferred to the interventional recovery area. The patient will be transferred to a hospital room for overnight pain control when stable by sedation protocol.
[2017-11-02 13:15] VITALS: BP 117/74
[2017-11-02] MEDS ORDERED: CIPRO500 M1 PO ×2 (14:22→14:36)
[2017-11-02] MEDS ORDERED: AUGMENTIN 875-1 EACH PO ×2 (14:22→14:36)
--- NOTE | 2017-11-02 14:23 | RADIOLOGY REPORT ---
EXAMINATION: XR CHEST CLINICAL INFORMATION: Weight loss, cough. Biopsy-proven lymphoma. Multiple lung lesions including cavitary lesion in right lower lobe. COMPARISON: CT scans of the chest, most recent of which is dated 10/21/2017 and multiple prior chest x-rays, most recent of which is dated 10/28/2017. TECHNIQUE: AP upright and lateral views of the chest were obtained. FINDINGS: The cardiomediastinal silhouette is within normal limits in size. As seen previously, the right and left heart borders are partially obscured by multiple large masses in the mid and lower lungs, the largest of which is seen inferomedially and posteriorly in the right lower lobe with associated air-fluid level. The appearance is very similar to the prior chest x-ray. Upper lobes are relatively clear except for some chronic biapical reticular nodular opacities and mild right apical pleural thickening, most likely representing scarring. There is a small right-sided pleural effusion, unchanged from prior exam. There is an S-shaped thoracolumbar scoliosis with diffuse osteopenia and mild loss in height of the T12 and L1 vertebral body, similar to prior exam. Mild vertebral spondylosis is also seen in the lower thoracic and upper lumbar spine. Surgical sutures are seen in the upper abdomen on the lateral view.. IMPRESSION: 1. No significant changes in the plain film appearance of multiple bilateral pulmonary masses and single right lower lobe cavitary mass. 2. No significant change in small right-sided pleural effusion. 3. No pneumothorax.
[2017-11-02] MEDS ORDERED: DAILY MULTIPLE1 EACH PO (14:33)
--- NOTE | 2017-11-02 15:30 | PN- Infect Dx ---
Subjective Subjective: Afebrile without complaints Objective Last 24 Hrs of Vital Signs/I&O Vital Signs Date Time Temp Pulse Resp B/P B/P Pulse O2 O2 Flow FiO2 Mean Ox Delivery Rate 11/02 1315 98.7 76 18 117/74 97 Room Air 11/02 0747 93 Room Air 11/02 0623 97.6 83 19 122/64 87 11/01 2137 98.5 82 19 114/62 94 Room Air Intake & Output 11/02 1600 11/02 0800 11/02 0000 Intake Total 400 420 Output Total 400 Balance 0 420 Intake, IV 20 Intake, Oral 400 400 Output, Urine 400 Patient 174 lb Weight Physical Exam Other Physical Findings: He appears comfortable in no acute distress Exam is unchanged Results Last 24 Hours of Lab Results: Laboratory Tests 11/02 11/02 11/02 11/02 1315 1315 1120 0500 Coagulation PT (9.4 - 12.5 SEC) 12.9 H INR (0.90 - 1.17) 1.18 H Miscellaneous Leukemic Chromosome Anal Pending Flow Cytometry Specimen Pending Serology Hep Bs Antigen Pending Hep Bs Antibody Pending Hep B Core IgM Ab Conf Pending Hepatitis Be Antibody Pending Hepatitis C Antibody Pending Last 24 Hours of Elder Results: No recent cultures Recent Imaging Studies: Chest x-ray November 02 reveals no significant change in the multiple bilateral pulmonary masses and right lower lobe cavitary mass Assessment/Plan ID Impression: Clinically improved, with temperatures and white blood cell count normal, resolution of his cough and improvement in his dyspnea, on Meropenem, Day 14 of treatment for a possible lung abscess, superinfecting underlying lymphoma. As discussed it may be prudent to continue him on antibiotics for an additional 4-6 weeks given his clinical improvement on antibiotics. Suggestion: 1. Further management of his lymphoma per Oncology 2. Discontinue Meropenem 3. Begin Augmentin 875 mg p.o. every 12 hours and Ciprofloxacin 500 mg p.o. every 12 hours to plan on an additional 4 weeks of treatment with close follow- up as an outpatient
== END 2017-11-02 16:19 | DRG 823 ==
LOC: ERH 07:45 → 2NB 14:18 → ERHI 14:18 → ENRESERV 14:58 → ENTRNSPT 16:42 → EDTRNSPTSTS 16:54 → 2NB 17:09 → CMPTRNSPT 17:58 → ENTRNSPT 10-26 13:14 → EDTRNSPT 10-26 13:21 → EDTRNSPTSTS 10-26 13:21 → CMPTRNSPT 10-26 13:28 → ENTRNSPT 11-02 15:58 → EDTRNSPT 11-02 16:09 → EDTRNSPTSTS 11-02 16:09 → 2NB 11-02 16:19 → CMPTRNSPT 11-02 16:27
PROVIDERS: Emergency Medicine; Hospitalist; Preventive Medicine Addiction Medicine; Student in an Organized Health Care Education/Training Program
PROC: 0BBL3ZX Excision of Left Lung, Percutaneous Approach, Diagnostic (ICD-10-PCS; 2017-10-21)
PROC: 0BD68ZX Extraction of Right Lower Lobe Bronchus, Via Natural or Artificial Opening Endoscopic, Diagnostic (ICD-10-PCS; 2017-10-25)
PROC: 0B9F8ZX Drainage of Right Lower Lung Lobe, Via Natural or Artificial Opening Endoscopic, Diagnostic (ICD-10-PCS; principal; 2017-10-26)
PROC: 8E0WXBF Computer Assisted Procedure of Trunk Region, With Fluoroscopy (ICD-10-PCS; 2017-10-26)
PROC: 0QB23ZX Excision of Right Pelvic Bone, Percutaneous Approach, Diagnostic (ICD-10-PCS; 2017-11-02)
DX: C83.30 Diffuse large B-cell lymphoma, unspecified site (principal); J15.6 Pneumonia due to other Gram-negative bacteria; R06.00 Dyspnea, unspecified; I10 Essential (primary) hypertension; K21.9 Gastro-esophageal reflux disease without esophagitis; Z87.891 Personal history of nicotine dependence; E78.5 Hyperlipidemia, unspecified; R63.4 Abnormal weight loss; Z68.25 Body mass index [BMI] 25.0-25.9, adult; Z90.49 Acquired absence of other specified parts of digestive tract
CPT/HCPCS: 2NBP; 86021; 87070; 87075; 87205; 36415; 36592; 71045; 71046; 76000; 77012; 82436; 86803; 87040; 87449; 88305; 88312; 93005; 93010; J0131; J1650; J2185; J2310; J3490